=== PATIENT | female | born 1940 | race Caucasian/White ===

== ENCOUNTER 2018-08-07 07:05 | Day surgery (SDC) ==
--- NOTE | 2018-08-06 15:32 | EKG Report ---
Test Performed on : 08/06/2018 3:11:44 PM Test Reason : PAT Blood Pressure : / mmHG Vent. Rate : 075 BPM Atrial Rate : 075 BPM P-R Int : 178 ms QRS Dur : 092 ms QT Int : 402 ms P-R-T Axes : 050 003 038 degrees QTc Int : 448 ms Normal sinus rhythm. Incomplete right bundle branch block Borderline ECG When compared with ECG of 30-NOV-2017 15:30, T wave inversion no longer evident in Inferior leads Nonspecific T wave abnormality, improved in Anterolateral leads Confirmed by Gilles MELGOZA, Moody Samson ([id number]) on 08/06/2018 7:30:21 PM
[2018-08-06 15:51] LABS: HEMATOCRIT 32.6 % (37.0-47.0); MCH 28.5 PG (27-31); MCHC 30.7 g/dL (33-37); MCV 92.9 FL (81-99); MPV 10.3 FL (7.4-10.4); RBC 3.51 XMIL (4.2-5.4); RDW 14.4 % (11.5-14.5); WBC 15.52 X1000 (4.8-10.8)
[2018-08-06 16:01] LABS: INR 1.05; PROTIME 14.6 Seconds (11.0-16.0)
[2018-08-06 16:02] LABS: PTT 31.3 Seconds (22.3-41.8)
[2018-08-06 16:22] LABS: CALCIUM 9.2 mg/dL (8.8-10.2); CREATININE 1.2 mg/dL (0.5-0.9); POTASSIUM 4.8 mmol/L (3.5-5.1)
--- NOTE | 2018-08-06 19:35 | HISTORY AND PHYSICAL ---
HISTORY OF PRESENT ILLNESS: A 78-year-old female with history of recurrent urinary tract infections, who has developed gross hematuria. Of note, she is on anticoagulation secondary to her history of pulmonary embolus. She underwent CT scan on 07/22/2018, which revealed multiple bilateral renal stones, approximately 40 in each kidney, as well as ureteropelvic junction stenosis bilaterally. She underwent cystoscopy with retrograde pyelograms on 07/25/2018, which confirmed the UPJ obstruction bilaterally. She presents for definitive intervention of her left side with robotic pyeloplasty and pyelolithotomy. PAST MEDICAL HISTORY: Pulmonary embolus, recurrent UTIs, urinary incontinence, hypertension, hypothyroidism. PAST SURGICAL HISTORY: Bladder sling, bilateral hip replacement, hysterectomy, colon resection, shoulder surgery. HOME MEDICATIONS: Bystolic, Estrace, levothyroxine, Myrbetriq, nabumetone, Xarelto. ALLERGIES: No known drug allergies. PHYSICAL EXAMINATION: GENERAL: No acute distress. HEENT: Normocephalic, atraumatic. ABDOMEN: Nontender. Nondistended. CARDIOVASCULAR: Regular rhythm. GENITOURINARY: Bladder is nontender to palpation. ASSESSMENT: A 78-year-old female with bilateral ureteropelvic junction obstruction, as well as numerous bilateral renal stones. I have discussed with the patient robotic-assisted laparoscopic pyelolithotomy with removal of the left renal pelvis stones as well as pyeloplasty to correct her ureteropelvic junction and placement of left ureteral stent. We discussed the risks of the procedure, including, but not limited to, bleeding, infection, injury to the kidneys, injury to the ureters or adjacent structures, inability to remove all of the stones, recurrence of stenosis with need for additional interventions were explained. She voiced understanding and wants to proceed. PLAN: Left robotic-assisted laparoscopic pyeloplasty, pyelolithotomy. cc: Wai Monge MD
[2018-08-07] MEDS ORDERED: LR 1,000 ML ONE ×2 (07:48→09:49)
[2018-08-07] MEDS ORDERED: KEFZOL 1 GM/D5W 1 GM/50 ML IVPB ONE (07:48)
[2018-08-07] MEDS ORDERED: ROBINUL ONE ×2 (07:57→10:15)
[2018-08-07] MEDS ORDERED: NORCURON ONE (07:57)
[2018-08-07] MEDS ORDERED: QUELICIN (DOSE) ONE (07:57)
[2018-08-07] MEDS ORDERED: STERILE WATER INJ. ONE (07:57)
[2018-08-07] MEDS ORDERED: XYLOCAINE-MPF 2% ONE (07:57)
[2018-08-07] MEDS ORDERED: DIPRIVAN 1% ONE (07:58)
[2018-08-07] MEDS ORDERED: FENTANYL ONE (07:59)
[2018-08-07] MEDS ORDERED: MARCAINE 0.25% PF/EPI 1:200,000 ONE (09:49)
[2018-08-07] MEDS ORDERED: OFIRMEV 1000 MG/ISOTONIC SOLN 1,000 MG/100 ML BOTTLE ONE (10:15)
[2018-08-07] MEDS ORDERED: DECADRON ONE (10:15)
[2018-08-07] MEDS ORDERED: NEOSTIGMINE ONE (10:15)
[2018-08-07] MEDS ORDERED: ZOFRAN ONE (10:15)
[2018-08-07] MEDS ORDERED: LOPRESSOR ONE (11:55)
[2018-08-07] MEDS ORDERED: NS 1,000 ML ONE (12:46)
[2018-08-07] MEDS: DILAUDID ONE ×4 (12:58→13:15)
[2018-08-07] MEDS ORDERED: MORPHINE IV PRN (13:53)
[2018-08-07] MEDS ORDERED: NORCO-5 PO PRN (14:00)
[2018-08-07] MEDS ORDERED: PHENERGAN IV PRN (14:00)
[2018-08-07] MEDS ORDERED: NORCO-10 PO PRN (14:00)
[2018-08-07] MEDS ORDERED: NS 1,000 ML IV SCH (14:00)
[2018-08-07] MEDS ORDERED: PHENERGAN PO PRN (14:00)
[2018-08-07] MEDS ORDERED: LABETALOL IV PRN (14:00)
[2018-08-07] MEDS ORDERED: SODIUM CHLORIDE 0.9% INJ PRN (14:00)
[2018-08-07] MEDS ORDERED: OXY IR PO PRN ×2 (14:00)
[2018-08-07] MEDS ORDERED: PHENERGAN PR PRN (14:00)
[2018-08-07] MEDS: LEVAQUIN 500 MG/D5W 500 MG/100 ML IVPB IV SCH (15:32)
[2018-08-07] MEDS: NORCO-7.5 PO PRN (15:32)
[2018-08-07] MEDS: DILAUDID IV PRN ×3 (16:32→22:47)
[2018-08-07] MEDS ORDERED: OFIRMEV 1000 MG/ISOTONIC SOLN 1,000 MG/100 ML BOTTLE IV PRN (17:00)
[2018-08-07] MEDS ORDERED: PYRIDIUM PO PRN (18:03)
[2018-08-07] MEDS ORDERED: DITROPAN PO PRN (20:22)
[2018-08-07] MEDS: COLACE PO SCH (21:48)
[2018-08-07] MEDS: TYLENOL ARTHRITIS PO SCH (21:48)
[2018-08-07] MEDS: PERIDEX MT SCH (21:49)
[2018-08-07] MEDS: ZOFRAN IV PRN (23:03)
[2018-08-07 23:27] LABS: URINE SOURCE CLEAN CATCH
[2018-08-07 23:30] LABS: BILIRUBIN URINE NEGATIVE (NEGATIVE); BLOOD URINE MODERATE (NEGATIVE); COLOR ORANGE; GLUCOSE URINE >1000 mg/dL (NEGATIVE); KETONE URINE NEGATIVE (NEGATIVE); LEUKOCYTES URINE LARGE (NEGATIVE); NITRITE URINE NEGATIVE (NEGATIVE); PROTEIN URINE 50 mg/dL (NEGATIVE); SP GRAVITY URINE 1.011; TURBIDITY URINE TURBID (CLEAR); UROBILINOGEN URINE NORMAL (NORMAL)
[2018-08-07 23:37] LABS: UR EPITHELIAL CELLS <10 /HPF (<10); URINE BACTERIA NEGATIVE /HPF; URINE RBC TNTC /HPF (<10); URINE WBC TNTC /HPF (<10)
[2018-08-08 00:21] LABS: URINE CASTS NONE SEEN; URINE CRYSTALS NONE SEEN; URINE SMALL ROUND CELLS NONE SEEN; URINE YEAST PRESENT
[2018-08-08] MEDS: DILAUDID IV PRN ×2 (01:15→05:49)
[2018-08-08 05:47] LABS: CREATININE BODY FLUID 3.3 mg/dL
[2018-08-08 07:02] LABS: HEMOGLOBIN 9.8 g/dL (12.0-16.0); MCH 29.3 PG (27-31); MCHC 30.6 g/dL (33-37); MCV 95.8 FL (81-99); MPV 10.6 FL (7.4-10.4); RBC 3.34 XMIL (4.2-5.4); RDW 14.5 % (11.5-14.5); WBC 28.85 X1000 (4.8-10.8)
[2018-08-08 07:19] LABS: CALCIUM 8.6 mg/dL (8.8-10.2); CREATININE 1.6 mg/dL (0.5-0.9); POTASSIUM 4.7 mmol/L (3.5-5.1)
[2018-08-08] MEDS: ZOFRAN IV PRN (07:38)
[2018-08-08] MEDS: NORCO-7.5 PO PRN ×2 (07:44→15:17)
[2018-08-08] MEDS: PERIDEX MT SCH (08:55)
[2018-08-08] MEDS: TYLENOL ARTHRITIS PO SCH (08:56)
[2018-08-08] MEDS: COLACE PO SCH (08:57)
[2018-08-08] MEDS ORDERED: SYNTHROID PO SCH (09:00)
[2018-08-08] MEDS ORDERED: TRICOR PO SCH (09:00)
[2018-08-08] MEDS ORDERED: BYSTOLIC PO SCH (09:00)
[2018-08-08 11:54] VITALS: BP 112/49
[2018-08-08] MEDS: LEVAQUIN 500 MG/D5W 500 MG/100 ML IVPB IV SCH (13:19)
--- NOTE | 2018-09-26 09:48 | OPERATIVE NOTE ---
PROCEDURE DATE: 08/07/2018 SURGEON: Wai Monge MD PREOPERATIVE DIAGNOSES: History of open abdominal surgery on the left ureteropelvic junction obstruction, gross hematuria, numerous left kidney stones, and hydronephrosis. POSTOPERATIVE DIAGNOSES: History of open abdominal surgery on the left ureteropelvic junction obstruction, gross hematuria, numerous left kidney stones, and hydronephrosis. PROCEDURES: Extensive laparoscopic lysis of adhesions, left robotic assisted laparoscopic pyeloplasty, left pyelolithotomy with extraction of numerous renal stones, and placement of left ureteral stent. INDICATIONS: A 78-year-old female with history of recurrent UTIs who developed fairly severe gross hematuria. She underwent imaging with CT scan which revealed bilateral significant ureteropelvic junction obstruction with severe hydronephrosis as well as numerous kidney stones, over 50 stones in each renal pelvis. She has a history of hysterectomy as well as colon resection with large abdominal scar. She underwent retrograde pyelogram which confirmed significant ureteropelvic junction obstruction and numerous stones on both sides. She wants to proceed with definitive surgical intervention, and we agreed to start with the left side as it appears to have less burden. FINDINGS: She had multiple adhesions of small bowel and mesentery to the anterior abdominal wall from the previous surgery. Please note that it took me approximately 30 minutes to take those down meticulously and increased my operative time by 30%. There were numerous renal stones that were extracted after the renal pelvis was opened. Tension-free and watertight anastomosis at the conclusion of pyeloplasty. I performed a reduction pyeloplasty excising a segment of renal pelvis. DESCRIPTION OF PROCEDURE: After obtaining informed consent, patient brought to the operating room. Perioperative antibiotics and general endotracheal anesthesia were administered. She was placed in modified flank position with the left side up. A 16-Mauritanian Alberto catheter was introduced. Her bladder was drained. She was prepped and draped in sterile fashion. Given her large ventral abdominal scar, we began by making a small stab incision in her left upper quadrant and introduced the Veress needle. At first we could not confirm positive drop test, and hence, I had to find another place in the left upper quadrant, and then reintroduced Veress needle connected to saline-filled syringe. Eventually, I was able to confirm positive drop test followed by aspiration of fluid in the syringe without evidence of GI contents or blood. We then insufflated her pneumoperitoneum pressure to 15 mmHg. Given again her midline scar, we elected to start by placing one of the 8 mm trocars and looking with a 5 mm laparoscopic camera. After her abdominal cavity was insufflated, I demarcated the trocar sites in a standard partial nephrectomy fashion. One of the 8 mm trocar sites was anesthetized with Marcaine with epinephrine. Bovie electrocautery was used to incise skin followed by introduction of the trocar. This allowed us to introduce the 5 mm laparoscopic camera and abdominal cavity was examined. She had extensive adhesions of mesentery and small bowel to the anterior abdominal wall just at the midline at the site of her ventral scar. I then placed another 8 mm trocar under direct vision, and subsequent to that I used sharp dissection with gold scissors to take the adhesions down. We used cautery occasionally making sure we were away from the bowel as we cut across the adhesions. Again, I spent approximately 30 minutes taking the adhesions down and that increased my operative time by 30%. Once the adhesions were taken down, I was able to place the rest of the trocars under direct vision. She was placed in a more exaggerated flank position, and the robot was undocked. We began by incising the white line of Toldt and reflecting the descending colon. The splenic colic flexure was released. The mesentery of the kidney came into the view. She had a decent amount of perinephric fat that was fairly sticky. I was eventually able to identify the projected lower pole of the kidney and dissect onto the psoas muscle. The kidney was lifted with the help of the fourth arm. Eventually, the ureter was identified. We then dissected alongside the ureter toward the hilum in the process of identifying and sparing the gonadal vein. Eventually, the ureteropelvic junction came into the view. Her pelvis was very very large and redundant. There was no evidence of a crossing vessel. I then spent a considerable amount of time freeing up the fat off of the renal pelvis in order for us to have excellent visualization as I saw that we will likely have to do reduction pyeloplasty. Eventually, I also freed up and mobilized the ureter for 5 to 6 cm distally in order to give us adequate length for a tension-free anastomosis. We were careful to preserve periurethral blood supply. Eventually, once we were satisfied with exposure, her renal pelvis was incised. I expected she had numerous renal stones. The majority of them were 2 to 3 mm but again there were between 50 and 100 stones. I used the fourth arm as well as the bipolar grasper to extract the stones, and place them into an EndoCatch bag. When we extracted all the visible stones, copious irrigation of the renal pelvis was performed. I was able to inspect several major calices, but it was suboptimal to examine of every minor calyx. We once again irrigated the renal pelvis copiously trying to bring out any other remaining stones. Following that, I used gold scissors to excise a several cm piece of the renal pelvis in order to reduce it. We also excised the ureteropelvic junction which was sent off to pathology. Pott's scissors were used to incise the ureter. Following that, I used 3-0 Vicryl suture in a running fashion to reapproximate the edges of the renal pelvis. It appeared to come back together nicely without tension and greatly reduced in size. We then used interrupted 4-0 Vicryl sutures to perform anastomosis between the renal pelvis and the ureter. This was done x8. After placing 5 sutures on the back wall of the ureter, Sensor wire was introduced into the ureter toward the bladder followed by insertion of 6-Mauritanian, 24 cm stent over the wire. The proximal coil of the stent was positioned in the renal pelvis under direct visualization. I then continued closing the anastomosis in an interrupted fashion with 4-0 Vicryl sutures. Again, in total, we used 8 sutures. At the conclusion of the case, the anastomosis was definitely tension-free and appeared to be watertight. I decreased pneumoperitoneal pressure to 3 mmHg. There was no evidence of bleeding. We then inspected the entire operative field. There was no evidence of bowel injury. We placed a Philippe drain via the fourth arm trocar, and secured to the skin with 2-0 nylon suture. We decreased the amount of pressure one more time and confirmed that there was no bleeding, and then the robot was undocked. Her 12 mm camera trocar and technical support assistant trocar fascia was closed with 0 Vicryl suture. Wounds were irrigated. A 4-0 Monocryl suture was used for subcuticular closure followed by application of Covidien adhesive agent. She was extubated and taken to PACU for further recovery. ESTIMATED BLOOD LOSS: 50 mL. SPECIMENS: 1. Multiple renal stones. 2. Ureteropelvic junction of renal pelvis. DRAINS: 1. Philippe drain. 2. 6-Mauritanian-24 cm ureteral stent. DISPOSITION: To PACU and subsequently floor for observation. cc: Wai Monge MD
== END 2018-08-08 15:35 | disposition home or self-care (01) ==
LOC: 4N 07:05 → OR 07:05
PROVIDERS: ATTEND Urology

== ENCOUNTER 2018-08-14 08:24 | Inpatient (IN) ==
--- NOTE | 2018-08-14 08:54 | Diag Imaging Result Doc PS360 ---
CHEST-1 VIEW - 08/14/2018 INDICATION: sepsis protocol COMPARISON: 11/30/2017 FINDINGS: The lungs are normally expanded and clear. Heart size and mediastinal contours are normal. No pneumothorax or pleural effusion. IMPRESSION: Negative exam. Electronically signed by Abiel Jimenez 08/14/2018 8:52 AM
[2018-08-14] MEDS ORDERED: MORPHINE IV ONE (08:56)
[2018-08-14] MEDS ORDERED: ZOFRAN IV ONE (08:56)
--- NOTE | 2018-08-14 09:05 | PROVIDER DOCUMENTATION ---
HPI-General Adult - General Chief Complaint: SEPSIS ALERT - D Stated Complaint: POST OP COMPLAINT Time Seen by Provider: 08/14/18 08:44 Source: patient, family Allergies/Adverse Reactions: Patient Allergies Allergy/AdvReac Type Severity Reaction Status Date / Time No Known Allergies Allergy Verified 08/06/18 14:59 Home Medications: Home Medication List Medication Instructions Recorded Confirmed Last Taken Type Fenofibrate [Tricor] 145 mg PO DAILY 11/12/17 08/14/18 08/13/18 08:00 History Nebivolol [Bystolic] 5 mg PO DAILY 11/12/17 08/14/18 08/13/18 08:00 History Levothyroxine [Synthroid] 125 microgm PO DAILY 11/15/17 08/14/18 08/06/18 09:00 History 125 Acetaminophen E.r. [Tylenol 2 tab PO BID 11/30/17 08/14/18 08/13/18 20:00 History Arthritis] Phenazopyridine HCl [Pyridium] 200 mg PO TID PRN PRN #10 tab 07/25/18 08/14/18 Unknown Rx Aspirin [Adult Low Dose Aspirin EC] 81 mg PO DAILY 08/07/18 08/14/18 Unknown History Fluconazole 100 mg PO DAILY 08/07/18 08/14/18 08/13/18 20:00 History Hydrocodone/APAP 7.5 mg/325 mg 1 ea PO TID PRN #20 tab 08/08/18 08/14/18 08/14/18 03:00 Rx [[place]-7.5] [place]/Na Phos/Meth Blue/Hyos 1 ea PO TID PRN #30 tab 08/08/18 08/14/18 Unknown Rx [Urogesic-Blue] Promethazine [Phenergan] 12.5 mg RC TID PRN #15 supp 08/08/18 08/14/18 Unknown Rx Rivaroxaban [Xarelto] 20 mg PO DAILY 08/14/18 08/14/18 08/13/18 08:00 History - History of Present Illness -Gen Adult Nature of Presenting Problems: Patient complains of back and chest pain since last night. Patine is 1 week post ureteral stent placement for ureterolithiasis. Seh denies fever or vomiting. Reports that the pain in the back developed last night but the chest pain developed this morning. She states that she's had both symptoms previously. Pain Radiation: reports: no radiation Quality of Pain: reports: sharp Severity: reports: moderate Timing: reports: still present Context/Activities at Onset: reports: none Modifying Factors: improves with: nothing Associated Symptoms: reports: denies symptoms Similar Symptoms Previously?: Yes Recently seen or treated by another doctor?: Yes Review of Systems - Adult - REVIEW OF SYSTEMS - ADULT Constitutional: reports: no symptoms reported Eyes: reports: no symptoms reported Ears, Nose, Mouth & Throat: reports: no symptoms reported Cardiovascular: reports: no symptoms reported Respiratory: reports: no symptoms reported Gastrointestinal: reports: no symptoms reported Genitourinary: reports: see HPI Musculoskeletal: reports: no symptoms reported Integumentary: reports: no symptoms reported Neurological: reports: no symptoms reported Psychiatric: reports: no symptoms reported Endocrine: reports: no symptoms reported Hematologic/Lymphatic: reports: no symptoms reported Allergic/Immunologic: reports: no symptoms reported All Other Systems: Reviewed and Negative Past History - Adult - PAST MEDICAL HISTORY-ADULT Review of Records: reports: Old Records Reviewed Major Childhood Illnesses: reports: denies history Cardiovascular: reports: blood clots, HTN Respiratory: reports: denies history Gastrointestinal: reports: denies history Obstetrical/Gynecological: reports: denies history Genitourinary: reports: denies history Musculoskeletal: reports: denies history Neurological: reports: denies history Endocrine/Immune: reports: thyroid disorder Other Conditions: reports: denies history - PRIOR SURGERIES/PROCEDURES Surgical/Procedure History: reports: hysterectomy, bowel surgery (colon resection), orthopedic (extremity) - IMMUNIZATION STATUS Childhood Immunizations: See Nurse Assessment Flu Vaccine: See Nurse Assessment - FAMILY HISTORY Family History: reviewed, not pertinent Physical Exam-General - PHYSICAL EXAM-ADULT Initial Vital Signs Reviewed: Yes - CONSTITUTIONAL General Appearance: mild distress (due to pain) - EYES Eyes: PERRL/EOMI, pink conjunctivae - HEAD, EARS, NOSE, MOUTH & THROAT HENMT: normocephalic/atraumatic, moist mucous membranes, normal ENT inspection - NECK Neck: non-tender, full range of motion - RESPIRATORY Respiratory: chest non-tender, lungs clear, normal breath sounds - CARDIOVASCULAR Cardiovascular: normal peripheral pulses, regular rate, rhythm - GASTROINTESTINAL (ABDOMEN) Abdominal Exam: non tender, soft, no organomegaly - MUSCULOSKELETAL Back Exam: normal inspection, no CVA tenderness Extremity: normal range of motion, non-tender - SKIN Integumentary: normal color, normal turgor, warm/dry - NEUROLOGIC Neurologic: 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 II-XII nml as tested, grossly normal - PSYCHIATRIC Psych/Mental Status: normal mood/affect, normal thought content, normal thought process, oriented x 3 Progress - PLAN OF CARE/RESULTS Progress/Plan/Lab Results: Vital Signs - 8 hr 08/14/18 08:28 Temperature 98.6 F Pulse Rate 99 H Respiratory Rate 22 Blood Pressure 149/77 O2 Sat by Pulse Oximetry 95 Orders Category Date Time Status Cardiac Monitoring DIRECTED Care 08/14/18 08:36 Active IV Insertion ORDERED Care 08/14/18 08:36 Active Notify MD of + Sepsis Screen NOW Care 08/14/18 08:36 Active Notify Physician As Ordered Care 08/14/18 08:36 Active Nursing- Obtain EKG once Care 08/14/18 08:56 Active CHEST-1 VIEW [RAD] Stat Exams 08/14/18 08:[address] RENAL STONE SEARCH [CT] Stat Exams 08/14/18 08:55 Ordered BLOOD CULTURE [BLDCUL] Stat Lab 08/14/18 08:36 Uncollected CBC WITH DIFF [HEME] Stat Lab 08/14/18 08:36 Uncollected CK PROFILE [SP CHEM] Stat Lab 08/14/18 08:36 Uncollected COMPREHENSIVE METABOLIC PANEL [CHEM] Stat Lab 08/14/18 08:36 Uncollected LACTATE, PLASMA [CHEM] Q3H Lab 08/14/18 08:45 Uncollected LACTATE, PLASMA [CHEM] Q3H Lab 08/14/18 11:45 Uncollected LACTATE, PLASMA [CHEM] Q3H Lab 08/14/18 14:45 Uncollected PROTIME WITH INR [COAG] Stat Lab 08/14/18 08:36 Uncollected PTT [COAG] Stat Lab 08/14/18 08:36 Uncollected TROPONIN T Stat Lab 08/14/18 08:36 Uncollected URINALYSIS W/POSS RFLX CULT [URINALYSIS] Stat Lab 08/14/18 08:36 Uncollected Morphine Med 08/14/18 08:56 Discontinued 4 mg IV NOW ONE Ondansetron [Zofran] Med 08/14/18 08:56 Discontinued 4 mg IV NOW ONE Oxygen Device Stat Oth 08/14/18 08:36 Active Result Diagrams: 08/14/18 09:45 08/14/18 09:45 - REASSESSMENT Reassessment #1 Status: improving (mildly) - EKG 1 Time of EKG reading by physician:: 09:10 EKG Read and Signed by:: Gonzalez Cespedes Rate: 93 Rhythm: sinus [place]: normal QRS: normal [place] Interval: normal - CONSULTS/PCP/HOSPITALIST Notification #1 *Consult/PCP/Hospitalist*: Dr. Singh Consult Disposition: Admit (to ) #2 Consult: Consult Disposition: Admit Departure - Departure Date of Disposition Decision: 08/14/18 Time of Disposition Decision: 13:48 DIAGNOSIS: Back pain, Urinoma, Leukocytosis Disposition: ADMITTED INPATIENT 09 Certified Medical Emergency: Emergent Condition: Serious Referrals and Follow-Ups: Baljinder Patel MD [Primary Care Provider] - - Critical Care Note This patient required my direct & personal management of CC.: No Attestation - Physician/ REJI Attestation Patient care was provided by Advanced Practice Provider:: No The physician spent face to face time with patient:: Yes Advanced Practice Provider documentation review:: Supervising physician onsite and consulted in the evaluation and care of this patient. The physician did have a face to face encounter with the patient.
--- NOTE | 2018-08-14 09:35 | Diag Imaging Result Doc PS360 ---
EXAM: CT RENAL STONE SEARCH INDICATION: renal stent, pain TECHNIQUE: This exam was performed using automated exposure control, adjustment of mA or kV according to patient size, and/or use of iterative reconstruction technique. COMPARISON: 07/22/2018 FINDINGS: During the interval, there has been placement of a left ureteral stent. The left ureteral stent is in the expected position. Bilateral nephrolithiasis is again noted with numerous small stones in the renal pelvises bilaterally. There is gas within both renal pelvises and in the urinary bladder, which is probably due to recent instrumentation if the stent has been placed recently or there has been a recent Alberto catheter. Please correlate clinically. There has also been development of a large fluid collection that abuts the left ureter and runs along its course to the mid abdomen. It measures 8.6 x 6.7 cm axially and 12.8 cm craniocaudally. There are a few small droplets of gas within this fluid collection. The density is that of simple fluid. It is suspicious for urinoma. There is a smaller amount of nonloculated fluid tracking along the left ureter more distally. Much of the urinary bladder is obscured by extensive beam hardening artifact related to bilateral hip arthroplasty. This distention of the left renal pelvis appears to improve slightly since placement of the stent. The distended right renal pelvis is stable. No right ureteral stones are appreciated. The liver, spleen, pancreas, and adrenal glands are stable and essentially unremarkable. The GI tract is essentially unchanged. IMPRESSION: 1.Interval placement of left ureteral stent with development of a large periureteral fluid collection on the left that is suspicious for urinoma. 2.Multiple intrarenal stones bilaterally, mainly in the renal pelvises similar to the previous study. The distention of the left renal pelvis has improved slightly since stent placement. Distended right renal pelvis is stable. 3.Gas in both renal pelvises, the urinary bladder, as well as the large left periureteral fluid collection that is probably due to recent instrumentation. Please correlate clinically. 4.Otherwise, the CT is essentially stable. Electronically signed by Jagdeep Patton 08/14/2018 9:33 AM
[2018-08-14 10:38] LABS: BASO# 0.05 X1000 (0.0-0.2); BASO% 0.2 % (0.0-0.8); EOS# 0.06 X1000 (0.0-0.7); EOS% 0.2 % (0.0-10.0); HEMATOCRIT 33.4 % (37.0-47.0); HEMOGLOBIN 10.4 g/dL (12.0-16.0); IMM GRAN# 0.39 X1000 (0.0-0.04); IMM GRAN% 1.6 % (0.0-0.5); LYMPH# 1.59 X1000 (1.2-3.4); LYMPH% 6.6 % (20.5-51.1); MCH 28.7 PG (27-31); MCHC 31.1 g/dL (33-37); MONO# 1.62 X1000 (0.11-0.59); MONO% 6.7 % (1.7-9.3); MPV 10.7 FL (7.4-10.4); NEUT% 84.7 % (42.2-75.2); PLT 571 X1000 (130-400); RBC 3.63 XMIL (4.2-5.4); RDW 14.8 % (11.5-14.5); WBC 24.01 X1000 (4.8-10.8)
[2018-08-14 10:58] LABS: BANDS 10 % (0-1); EOS 2 % (1-10); INR 1.27; LYMPHS 3 % (21-51); MONO 11 % (1-9); PROTIME 16.9 Seconds (11.0-16.0); SEGS 73 % (42-75)
[2018-08-14] MEDS ORDERED: ZOSYN 3.375 GM in NS 50 ML IV ONE (10:58)
[2018-08-14 11:00] LABS: PTT 36.7 Seconds (22.3-41.8)
[2018-08-14 11:01] LABS: ALB/GLOB RATIO 1.1; ALBUMIN 3.3 g/dL (3.5-5.0); CALCIUM 8.7 mg/dL (8.8-10.2); POTASSIUM 4.3 mmol/L (3.5-5.1); TOTAL BILIRUBIN 0.41 mg/dL (0.20-1.00); TOTAL PROTEIN 6.4 g/dL (6.3-8.3)
[2018-08-14 11:22] LABS: URINE SOURCE CLEAN CATCH
--- NOTE | 2018-08-14 11:22 | EKG Report ---
Test Performed on : 08/14/2018 09:03:23 AM Test Reason : ED. NO EKG ORDER FOR MUSE Blood Pressure : / mmHG Vent. Rate : 093 BPM Atrial Rate : 093 BPM P-R Int : 154 ms QRS Dur : 090 ms QT Int : 380 ms P-R-T Axes : 044 -05 055 degrees QTc Int : 472 ms Normal sinus rhythm. Normal ECG When compared with ECG of 06-AUG-2018 15:11, No significant change was found Unconfirmed Result
[2018-08-14 11:32] LABS: BILIRUBIN URINE NEGATIVE (NEGATIVE); BLOOD URINE LARGE (NEGATIVE); COLOR ORANGE; GLUCOSE URINE >1000 mg/dL (NEGATIVE); KETONE URINE TRACE mg/dL (NEGATIVE); LEUKOCYTES URINE LARGE (NEGATIVE); NITRITE URINE NEGATIVE (NEGATIVE); PH URINE 5.5; PROTEIN URINE 50 mg/dL (NEGATIVE); SP GRAVITY URINE 1.013; TURBIDITY URINE TURBID (CLEAR); UROBILINOGEN URINE NORMAL (NORMAL)
[2018-08-14 12:02] LABS: UR EPITHELIAL CELLS <10 /HPF (<10); URINE BACTERIA NEGATIVE /HPF; URINE CASTS NONE SEEN; URINE RBC TNTC /HPF (<10); URINE WBC TNTC /HPF (<10); URINE YEAST PRESENT
[2018-08-14] MEDS ORDERED: ZOFRAN IV PRN (14:24)
[2018-08-14] MEDS ORDERED: TYLENOL PO PRN (14:24)
[2018-08-14] MEDS ORDERED: LEVAQUIN 500 MG/D5W 500 MG/100 ML IVPB IV SCH (15:00)
[2018-08-14] MEDS: NORCO-5 PO PRN ×2 (15:41→22:13)
[2018-08-14] MEDS: NS 1,000 ML IV SCH (15:42)
--- NOTE | 2018-08-14 16:49 | HISTORY AND PHYSICAL ---
PRIMARY CARE PROVIDER: Dr. Baljinder Patel. UROLOGIST: Dr. Monge. CHIEF COMPLAINT: Left lower quadrant pain, mild nausea, urinary frequency. HISTORY OF PRESENT ILLNESS: Ms. Richard is a 78-year-old female who carries a past medical history of PE, recurrent UTIs, urinary incontinence, hypertension, hypothyroidism, who is currently being treated with by Dr. Monge for multiple bilateral renal stones, approximately 40 in each kidney. She did undergo a cystoscopy with retrograde pyelogram on 07/25/2018 which confirmed a UPJ obstruction bilaterally and then underwent intervention of her left side with robotic pyeloplasty and pyelolithotomy on 07/31/2018, with Dr. Monge with placement of a left urethral stent. She states all this time she has not really felt like herself, has not felt well. However, she was just starting to get her appetite back yesterday and yesterday afternoon she began having left lower quadrant pain that had been ongoing for several days, but then yesterday became unbearable, sharp and dull in nature. She had some mild nausea, urinary frequency, but denied any dysuria. They had spoke with Dr. Monge on Sunday. He did give them a prescription for an antibiotic, which did not get filled until Sunday and the pain became so bad Sunday morning she was brought to the ED by her . She denies any fever, chills, chest pain, shortness of breath, vomiting, or diarrhea, dizziness, or syncope. Workup in the ED revealed a white count of 24, with a dirty urine. Clinically, she does appear to be dehydrated. A renal CT was suspicious for urinoma, multiple intrarenal stones bilaterally mainly in the renal pelvis similar to her previous study. Her left renal pelvis was slightly improved since her stent placement. Distended right renal pelvis with stable. There was a large left periurethral fluid collection due to recent instrumentation. The CT was noted to be essentially stable. ED physician spoke with Dr. Monge who felt the patient would need to come in and receive IV antibiotics. She did not rule in for sepsis. Given her last urine cultures they grew out Citrobacter freundii, most susceptible to levofloxacin. So we will go ahead and initiate her on IV Levaquin. She was given a dose of Zosyn in the ED. We will continue with IV hydration and await Dr. Monge's recommendation. PAST MEDICAL HISTORY: 1. Pulmonary embolism. 2. Recurrent urinary tract infections. 3. Urinary incontinence. 4. Hypertension. 5. Hypothyroidism. 6. Bilateral renal stones. PAST SURGICAL HISTORY: 1. Recent retrograde pyelogram. 2. Left robotic assisted laparoscopic pyeloplasty and pyelolithotomy. 3. Bladder sling. 4. Bilateral hip replacement. 5. Hysterectomy. 6. Colon resection. 7. Shoulder surgery. HOME MEDICATIONS: Have not been verified. Previously on Bystolic, Estrace, levothyroxine, Myrbetriq, Nabumetone, and Xarelto. ALLERGIES: No known drug allergies. PHYSICAL EXAMINATION: VITAL SIGNS: Temperature is 99.7 degrees, heart rate 93, respirations 25, blood pressure 160/68, O2 is 94% on room air. GENERAL: Ms. Richard is an ill-appearing, 78-year-old female who is lying on the bed in no acute distress. HEENT: Atraumatic, normocephalic. PERRL. Mucous membranes are extremely dry. CARDIOVASCULAR: S1, S2 appreciated. No murmurs, gallops, rubs noted. RESPIRATORY: Lung sounds clear bilaterally. GASTROINTESTINAL: Abdomen was soft. Some tenderness to the left lower quadrant. Mild tenderness to the left lower quadrant. Positive bowel sounds. EXTREMITIES: Did not note any edema. NEUROLOGIC: No focal deficits noted. DIAGNOSTIC DATA: Chest x-ray was a negative exam. Renal CT is essentially stable. EKG normal sinus rhythm. LABORATORY DATA: White count 24, hemoglobin and hematocrit 10 and 34, platelet count of 571,000. Sodium 139, potassium 4.3, BUN 15, creatinine 1.0 blood glucose is 274. Two sets of lactate have been negative. Urine too numerous to count, RBCs too numerous to count WBCs, negative for bacteria, negative for nitrates, large blood. ASSESSMENT AND PLAN: 1. Leukocytosis in the setting of urinary tract infection and some dehydration. We will treat her urinary tract infection as well as continue with IV hydration. 2. Urinary tract infection. We will continue with IV Levaquin. Await urine culture. 3. Recent cystoscopy with retrograde pyelogram on 07/25/2018 for bilateral renal stones as well as a left robotic assisted laparoscopic pyeloplasty and pyelolithotomy with stent placement performed by Dr. Monge on 07/31. Renal CT showed that there was good stent placement. 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 4. Pulmonary embolus. The patient had gross hematuria secondary to being on anticoagulation with Xarelto. 5. Recurrent urinary tract infection. 6. Hypertension. 7. Hypothyroidism. 8. Further recommendation to follow physician evaluation, laboratory and diagnostic data. Dictated by JASON Sinha for Leann Casper MD cc: MD Wai Medel MD David Francis, MD
--- NOTE | 2018-08-15 01:33 | CONSULTATION ---
DATE OF CONSULTATION: 08/14/2018 CONSULTING SERVICE: Hospitalist. REASON FOR CONSULTATION: Urologic management secondary to recent urologic surgery. HISTORY OF PRESENT ILLNESS: Ms Richard is a pleasant 78-year-old female who is well known to me as she has bilateral ureteropelvic junction obstruction, numerous bilateral renal stones (close to 100 stones in each kidney), and gross hematuria as well as recurrent UTIs. She underwent a robotic-assisted laparoscopic left pyeloplasty with left ureteral stent removal on 08/07/2018. She was discharged on postop day 1 with the ureteral stent in place and without the drain. She did well for several days, although she complained of decreased appetite. She contacted us with intermittent suprapubic discomfort and had urine culture sent off on 08/08/2018, which revealed the yeast, for which she was being treated. She presented to the emergency room on 08/14/2018 with left lower quadrant pain radiating to her back as well as nausea. She reports the pain was sharp, [id number], and radiated to the back, activity made it worse, narcotic pain medications made it better. She denies associated fevers, chills, or gross hematuria. She reported associated nausea, decreased appetite, although it returned just yesterday. In the emergency room, she was found to have leukocytosis with a white cell count of 24,000. Her urinalysis had white cells and red cells, but was negative for bacteria. Her CT scan on 08/14/2018 revealed a ureteral stent in good position, a number of small residual stones in the left pelvis, although significantly decreased then prior to procedure, and a sizable fluid collection abutting the proximal left ureter consistent with urinoma. Ms Richard reports that after having received IV pain medications, her pain has completely subsided. She also reports her urgency and frequency, which has been present since her ureteral stent has been placed. PAST MEDICAL HISTORY: Pulmonary emboli for which she has been on anticoagulation, urolithiasis, hypertension, hypothyroidism, recurrent UTIs. PAST SURGICAL HISTORY: Shoulder arthroplasty, bilateral hip replacement, bladder sling, hysterectomy, partial colectomy, left robotic-assisted laparoscopic pyeloplasty and pyelolithotomy with left ureteral stent placement. ALLERGIES: No known drug allergies. HOME MEDICATIONS: Bystolic, levothyroxine, Myrbetriq, nabumetone, Estrace, and Xarelto. REVIEW OF SYSTEMS: Review of 12 systems negative, except as per the HPI. SOCIAL HISTORY: She denies tobacco, alcohol, or illicit drug use. She resides with her . Has very attentive family. FAMILY HISTORY: Negative for malignancies. PHYSICAL EXAMINATION: Vital signs: Temperature 97.9 degrees, pulse 91, blood pressure 127/59. General: No acute distress. HEENT: Normocephalic, atraumatic. Cardiovascular: Regular rhythm and rate. Pulmonary: Bilateral breath sounds. Abdomen: Protuberant, mildly tender to palpation but no peritoneal signs. No involuntary guarding. Her incisions are clean, dry, and intact in all port sites. Genitourinary: Bladder is nontender to palpation. Dermatologic: No skin rashes. Lymphatic: No groin lymphadenopathy. Neurologic: Alert and oriented x3. Psychiatric: Appropriate mood and affect. PERTINENT LABS: As per HPI. Her white cell count is 24,000. INR is 1.27. Creatinine is 1.0. PERTINENT IMAGES: CT abdomen and pelvis renal protocol as per HPI. ASSESSMENT/PLAN: A 78-year-old female who recently underwent left robotic pyeloplasty, pyelolithotomy, left ureteral stent placement, who presented with severe left flank pain, which has now resolved after narcotic pain medications as well as leukocytosis. She was initiated on Levaquin. Her urine is consistent with having a ureteral stent. I have discussed with the patient and her , who was present at bedside, that leukocytosis could still be reaction to surgery or a sign of infection. We discussed then the fluid collection abutting her urinary renal pelvis is likely urinoma. Does not appear to be an abscess. We discussed that due to significant size, she may benefit from having a drain by our Radiology colleagues. I have also discussed that having a ureteral stent will create frequency and urgency and is to be expected for the next 3 weeks. The patient's questions were answered. She currently feels more comfortable. PLAN: 1. I agree with antibiotics for now given her leukocytosis. 2. I will reassess the patient tomorrow. If she has any more pain episodes overnight, I explained to her and her that it could be related to the urinoma and she may benefit from having it drained by our Radiology colleagues. Otherwise, if she is feeling great, has had not had any more of the pain episodes, it would be reasonable to send her home without having urinoma drained in hopes that it will reabsorb with time, as she does have ureteral stent draining. 3. We will reassess in the morning. Thank you for assisting in Ms Richard's care. cc: Wai Monge MD
[2018-08-15] MEDS: NS 1,000 ML IV SCH ×3 (06:41→17:50)
[2018-08-15 08:01] LABS: BASO# 0.03 X1000 (0.0-0.2); BASO% 0.1 % (0.0-0.8); EOS% 0.4 % (0.0-10.0); HEMATOCRIT 27.4 % (37.0-47.0); HEMOGLOBIN 8.3 g/dL (12.0-16.0); IMM GRAN# 0.28 X1000 (0.0-0.04); IMM GRAN% 1.2 % (0.0-0.5); LYMPH% 6.9 % (20.5-51.1); MCH 28.3 PG (27-31); MCHC 30.3 g/dL (33-37); MCV 93.5 FL (81-99); MONO# 1.11 X1000 (0.11-0.59); MONO% 4.8 % (1.7-9.3); MPV 10.3 FL (7.4-10.4); NEUT# 19.91 X1000 (1.4-6.5); NEUT% 86.6 % (42.2-75.2); PLT 566 X1000 (130-400); RBC 2.93 XMIL (4.2-5.4); RDW 14.7 % (11.5-14.5); WBC 23.03 X1000 (4.8-10.8)
[2018-08-15 08:20] LABS: LYMPHS 2 % (21-51); MONO 4 % (1-9); SEGS 94 % (42-75)
[2018-08-15 08:38] LABS: AGAP 13; ALB/GLOB RATIO 0.7; ALBUMIN 2.5 g/dL (3.5-5.0); ALKALINE PHOSPHATASE 89 U/L (32-104); BUN 17 mg/dL (8-22); CALCIUM 8.1 mg/dL (8.8-10.2); CHLORIDE 103 mmol/L (98-107); COSMO 286; CREATININE 1.3 mg/dL (0.5-0.9); ESTIMATED GFR 40; GLUCOSE 219 mg/dL (70-104); POTASSIUM 3.8 mmol/L (3.5-5.1); SODIUM 139 mmol/L (136-145); TCO2 23 mmol/L (25-35); TOTAL PROTEIN 5.9 g/dL (6.3-8.3)
[2018-08-15 08:39] LABS: GOT 10 U/L (10-30); GPT < 5 U/L (10-36)
--- NOTE | 2018-08-15 11:58 | PROGRESS NOTE ---
DATE: 08/15/2018 SUBJECTIVE: Ms. Richard reports she has had a decent night overnight. She continues to have decreased appetite. She has had some nausea. She denies any recurrence of pain that she had yesterday, which brought her to the emergency room. OBJECTIVE: Vital Signs: T 100.3 degrees, P 86, BP 129/53. General: No acute distress. Pleasant female. Abdomen: Soft, nontender and nondistended. : Bladder is nontender to palpation. PERTINENT LABS: White cell count is 23,000, hematocrit is 27, creatinine is 1.3. ASSESSMENT: A 78-year-old female, who is status post recent left pyeloplasty, pyelolithotomy and ureteral stent placement, who was admitted to the hospital with pain and leukocytosis. Her pain has resolved. She still has elevated white cell count. I have discussed with the patient that her urinoma could contribute to decreased appetite and nausea. I do not believe again that it is an infection as that would be fairly early. Nevertheless, I have discussed with the patient and her , who was at bedside, as well as her daughter over the telephone, that since she is not feeling well overall and has persistent white cell count despite hydration overnight, it will be prudent for her to undergo percutaneous drainage of the urinoma. We discussed pros and cons. I discussed this case with Dr. Raúl Coburn with Radiology, who graciously agreed to assist us. PLAN: 1. The patient will undergo percutaneous CT-guided drainage of the urinoma. Per Dr. Coburn, I have placed her on clear liquid diet prior to procedure. Post procedure, she can resume regular diet. 2. Despite hydration, her creatinine saw a bump to 1.3. It is likely from the absorption of the urinoma and not truly related to an acute kidney injury. 3. Agree with antibiotics for now, although suspect her urine culture came back negative for bacteria. 4. Will follow. cc: Wai Monge MD
--- NOTE | 2018-08-15 12:39 | INFECTIOUS DISEASE CONSULT REP ---
DATE: 08/15/2018 ADDENDUM: It should be noted that the patient has recurrent urinary tract infection. Thus far this year, she has had 5 urinary tract infections. She grew either yeast or Citrobacter for the urinary tract infection she has had this year. I am going to go ahead and get immunoglobulin levels just to see if she has a low IgG level that might be predisposing her to recurrent urinary tract infections. I think it is more likely, however, that the patient's urinary tract infections are due to the fact that she has renal calculi which are impossible to sterilize and thus would be a source of giving the patient recurrent urinary tract infections. Hopefully, the procedures that Dr. Monge did will remove the stones from the patient's kidneys. This procedure hopefully will prevent the patient from having recurrent urinary tract infections. cc: Konrad Luis MD
--- NOTE | 2018-08-15 12:42 | INFECTIOUS DISEASE CONSULT REP ---
DATE: 08/15/2018 CONCLUSION: The patient has been admitted to the hospital with what appears to be a urinary tract infection. She has had multiple urinary tract infections and recently she had surgery for removal of renal calculi. It may well be that this current urinary tract infection is due to a fungus in view of the fact that the urinalysis showed white cells and yeast, but no bacteria. RECOMMENDATIONS: The patient already is on Levaquin for possible bacterial urinary tract infection. I have gone ahead and started the patient on micafungin for a possible fungal urinary tract infection. I think I am going to stop the patient's Levaquin and put her on a broader spectrum antibiotic for urinary tract infection, such as cefepime. DISCUSSION: The patient tells me approximately 9 days ago, she had robotic operation for removal of renal stones. Approximately 2 days ago, she started having lower abdominal pain and diffuse abdominal pain. She has not had fever or chills. She has not had dysuria. Laboratory studies thus [place] [address], hemoglobin 8.3, and platelet count 566,000. Creatinine is 1.3. GFR is 40. Liver function studies are normal. Urinalysis showed white cells and yeast, but no bacteria. Blood and urine cultures are pending. [employer] HISTORY: She is a 3, para 3, AB 0. She has had a hysterectomy. REVIEW OF SYSTEMS: Eyes and ears: She does not have any problem hearing or seeing. Neck: No stiffness. Respiratory: No cough or shortness of breath. Gastrointestinal: No nausea, vomiting, or diarrhea. Genitourinary: See present illness. Neurologic: No motor or sensory loss. No seizures. Endocrine: The patient is a diabetic and she also has hypothyroidism. Integument: No rashes PREVIOUS HOSPITALIZATIONS AND OPERATIONS: She has had labor and deliveries, a hysterectomy, a bilateral total shoulder arthroplasty, a bilateral total hip arthroplasty, a right total knee arthroplasty, a cholecystectomy, an appendectomy, a colectomy for which 8 inches if colon was removed because of precancerous polyps present. MEDICAL DISEASES: Positive for borderline diabetes, hypothyroidism, hypertension, hyperlipidemia, and precancerous colon polyps. The patient also has renal calculi. INFECTIOUS DISEASE HISTORY: Positive for recurrent urinary tract infections. FAMILY HISTORY: Positive for hypertension, myocardial infarction, and dementia. SOCIAL HISTORY: The patient [place] . [place] She does not have any pets. She does not have any drug allergies. She does not smoke cigarettes, drink alcoholic beverages or abuse drugs. HOME MEDICATIONS: Include the followin. Tylenol. 2. Aspirin. 3. Tricor. 4. Synthroid. 5. Bystolic. 6. Xarelto. PHYSICAL EXAMINATION: Vital Signs: Temperature earlier was 100.3 degrees, it is 98.7 degrees now, pulse 95, respirations 18, blood pressure 142/55. The patient is 5 feet 6 inches tall, weighs 201 pounds. General: This is an obese, elderly female. She is in no acute distress. Head/eyes/ears/nose/throat: She can hear my spoken words and see near objects. She does not have any white coating on her tongue. Neck: No meningismus. Lungs: A few rales were heard in the right base. The left lung was clear. Cardiovascular: Heart rate is regular. Abdomen: Soft and nontender. The patient's incision sites from the robotic surgery she had about 10 days ago are all intact and they are not erythematous. Neurologic: The patient is alert. She is able to ambulate there. Her memory as regarding her medical history is intact. Integument: No rash noted. Thank you for the consult. cc: Konrad Luis MD
[2018-08-15] MEDS: MYCAMINE 100 MG in NS 100 ML IV SCH (14:54)
--- NOTE | 2018-08-15 15:24 | Diag Imaging Result Doc PS360 ---
EXAM: CT GUIDE ABD DRAINAGE W/CATH 08/15/2018 HISTORY: left urinoma, abdominal pain TECHNIQUE: CT-guided percutaneous drainage of left-sided fluid collection COMMENT: The risks and benefits of the procedure including the possibility of bleeding, infection, or reaction to lidocaine was discussed with patient and she agreed to the procedure. Following sterile preparation of the skin anterolaterally over the left abdomen and administration of 1% lidocaine to the skin and deeper soft tissues, a 10.2-Norwegian cope loop catheter was inserted by trocar technique into the fluid collection which was demonstrated on the previous study of 08/14/2018. There are no immediate complications. Following placement of the catheter there is marked decrease in the volume of the fluid collection. IMPRESSION: Successful placement of drainage catheter in urinoma on the left. Electronically signed by Raúl Coburn 08/15/2018 3:22 PM
--- NOTE | 2018-08-15 16:14 | PROGRESS NOTE ---
DATE: 08/15/2018 SUBJECTIVE: The patient is resting comfortably in bed. She complains of abdominal bloating. OBJECTIVE: Vital Signs: Temperature 99 degrees, blood pressure 139/58, heart rate 81, respirations 16, O2 saturation 97% on room air. General: This is a morbidly obese female, lying in bed in no acute distress. Heart: S1, S2 normal. Regular rate and rhythm. Lungs: Clear to auscultation bilaterally. Abdomen: Positive bowel sounds. Soft, nontender, nondistended. Extremities: No edema, no cyanosis. Neurologic: The patient is alert and oriented x3. LABS: White blood cell count 23, hemoglobin 8.3, hematocrit 27, platelets 566. Sodium 139, potassium 3.8, chloride 103, CO2 23. BUN 17, creatinine 1.3, glucose 219. ASSESSMENT AND PLAN: 1. Urinary tract infection in the setting of bilateral nephrolithiasis status post ureteral stent. The patient's antibiotics have been adjusted by Dr. Luis. We will continue to follow up and monitor the culture results. 2. Morbid obesity. Aware. 3. Acute kidney injury. Continue with intravenous fluids. 4. Hypothyroidism. We will restart the Synthroid. 5. Hypertension. Continue on Bystolic. 6. Deep vein thrombosis prophylaxis. Will start the patient on Lovenox. cc: Leann Casper MD
[2018-08-15] MEDS: MAXIPIME 2 GM in NS 100 ML IV SCH (16:16)
[2018-08-15] MEDS: NORCO-5 PO PRN (22:03)
[2018-08-16] MEDS: NS 1,000 ML IV SCH ×3 (02:16→22:13)
[2018-08-16] MEDS: MAXIPIME 2 GM in NS 100 ML IV SCH (02:16)
[2018-08-16] MEDS: SYNTHROID PO SCH (06:38)
[2018-08-16 07:43] LABS: BASO# 0.02 X1000 (0.0-0.2); BASO% 0.1 % (0.0-0.8); EOS# 0.43 X1000 (0.0-0.7); HEMATOCRIT 25.5 % (37.0-47.0); HEMOGLOBIN 7.7 g/dL (12.0-16.0); IMM GRAN# 0.19 X1000 (0.0-0.04); IMM GRAN% 0.9 % (0.0-0.5); LYMPH# 1.98 X1000 (1.2-3.4); MCH 28.3 PG (27-31); MCHC 30.2 g/dL (33-37); MCV 93.8 FL (81-99); MONO# 1.03 X1000 (0.11-0.59); MONO% 4.7 % (1.7-9.3); MPV 10.1 FL (7.4-10.4); NEUT# 18.34 X1000 (1.4-6.5); NEUT% 83.3 % (42.2-75.2); PLT 556 X1000 (130-400); RBC 2.72 XMIL (4.2-5.4); RDW 14.7 % (11.5-14.5); WBC 21.99 X1000 (4.8-10.8)
[2018-08-16 08:00] LABS: AGAP 9; ALB/GLOB RATIO 0.7; ALBUMIN 2.4 g/dL (3.5-5.0); ALKALINE PHOSPHATASE 89 U/L (32-104); BUN 14 mg/dL (8-22); CALCIUM 8.3 mg/dL (8.8-10.2); CHLORIDE 104 mmol/L (98-107); COSMO 280; CREATININE 0.9 mg/dL (0.5-0.9); ESTIMATED GFR > 60; GLUCOSE 195 mg/dL (70-104); GOT 7 U/L (10-30); GPT < 5 U/L (10-36); POTASSIUM 3.7 mmol/L (3.5-5.1); SODIUM 137 mmol/L (136-145); TCO2 24 mmol/L (25-35); TOTAL BILIRUBIN 0.32 mg/dL (0.20-1.00); TOTAL PROTEIN 5.9 g/dL (6.3-8.3)
[2018-08-16 08:05] LABS: BANDS 10 % (0-1); LYMPHS 12 % (21-51); MONO 1 % (1-9); SEGS 75 % (42-75)
[2018-08-16] MEDS: TRICOR PO SCH (08:39)
[2018-08-16] MEDS: BYSTOLIC PO SCH (08:39)
[2018-08-16 09:23] LABS: HEMOGLOBIN A1C 7.3 % (4.8-6.0)
--- NOTE | 2018-08-16 10:41 | PROGRESS NOTE ---
DATE: 08/16/2018 SUBJECTIVE: The patient is resting comfortably in bed. She states that she feels better and was able to sleep last night. OBJECTIVE: Vital Signs: Temperature 98.3 degrees, blood pressure 147/51, heart rate 79, respirations 16, O2 saturation 95% on room air. General: This is an elderly female, lying in bed in no acute distress. Heart: S1, S2 normal. Regular rate and rhythm. Lungs: Equal air entry bilaterally. No crackles. No rales. Abdomen: Positive bowel sounds. There is a drain in place. Extremities: No edema, no cyanosis. Neurologic: The patient is alert and oriented x4. LABORATORY DATA: White blood cell count 21, hemoglobin 7.7, hematocrit 25, platelets 556,000. Sodium 137, potassium 3.7, chloride 104, CO2 24, BUN 14, creatinine 0.9, glucose 195. Hemoglobin A1c 7.3. Albumin 2.4. ASSESSMENT AND PLAN: 1. Urinary tract infection. The urine culture is growing yeast. The patient is currently on micafungin. Further arrangements as per Dr. Luis. 2. Status post CT-guided drainage of a left-sided urinoma. Management as per the urologist. 3. Newly diagnosed diabetes mellitus type 2. The patient has a hemoglobin A1c of 7.3. We will start metformin. We will also consult with the dietitian. 4. History of pulmonary embolism. Continue on Xarelto. 5. Bilateral nephrolithiasis. Aware. 6. Hypothyroidism. Continue on Synthroid. cc: Leann Casper MD
[2018-08-16] MEDS: HUMULIN R SUBQ SCH ×3 (12:32→22:14)
--- NOTE | 2018-08-16 14:09 | INFECTIOUS DISEASE PROGRESS NO ---
DATE: 08/16/2018 PRESENT ILLNESS: Ms. Richard is being treated for a funguria. She is status post cystoscopy with intervention for bilateral hydronephrosis and ureteropelvic junction obstruction. MEDICATIONS: She has been receiving cefepime 2 g IV every 12 hours and micafungin 100 mg IV daily, both of which were started yesterday. PHYSICAL EXAMINATION: Vital Signs: Temperature is 98.3 degrees, pulse rate 79, respiratory rate 16, blood pressure 147/51, O2 saturation is 95% on room air. General: This is an elderly, obese female. She is lying in the bed currently in no acute distress. HEENT: Atraumatic, normocephalic. Oral mucous membranes are pink and moist. Conjunctivae are pale. Neck: Supple. Trachea is midline. Cardiovascular: Heart rate and rhythm are regular. Normal sinus rhythm on the monitor. Respiratory: Lung sounds are clear to auscultation bilaterally. Diminished in the bases. Abdomen: Soft, obese and tender on palpation. There are puncture incisions which are open to air, as well as an accordion drain to the urinoma on the left that has cloudy, pink/yellow drainage. Neurologic: She is awake, alert, and oriented; able to ambulate and move around in the bed with assistance. Generalized weakness is noted. LABORATORY AND X-RAY: Today her white count is 21.99, hemoglobin 7.7, platelet count 556,000. Creatinine is 0.9. Estimated GFR is greater than 60. Total bilirubin 0.32, AST 7, ALT is less than 5 and alkaline phosphatase is 89. Her immunoglobulin levels show an IgA of 276 and IgG of 629. Her urine culture has grown yeast with colony count of greater than 100,000. ASSESSMENT AND PLAN: Ms. Richard is being treated for a funguria. I have called the micro lab and asked them to identify the yeast that is growing in her urine. At this point, we will discontinue cefepime. Her white count is slowly coming down, so for now, we will continue the micafungin as ordered. She has a mildly decreased IgG level, however, at 629, she is not low enough to merit an IVIG transfusion at this point. These plans have been discussed with and recommended by Dr. Luis. COMORBIDITIES: Comorbidities for Ms. Richard include that she is elderly and obese with current renal calculi and a history of multiple UTIs. Dictated by JASON Jewell for Konrad Luis MD cc: Konrad Luis MD [facility]
[2018-08-16] MEDS: MYCAMINE 100 MG in NS 100 ML IV SCH (15:59)
[2018-08-16] MEDS: GLUCOPHAGE PO SCH (18:20)
[2018-08-16] MEDS: XARELTO PO SCH (18:20)
[2018-08-16] MEDS: MYLICON PO PRN (18:26)
[2018-08-16] MEDS: NORCO-5 PO PRN (22:13)
[2018-08-17] MEDS: HUMULIN R SUBQ SCH ×4 (06:04→21:58)
[2018-08-17] MEDS: SYNTHROID PO SCH (06:04)
[2018-08-17] MEDS: NS 1,000 ML IV SCH (06:07)
[2018-08-17 07:33] LABS: BASO# 0.05 X1000 (0.0-0.2); BASO% 0.3 % (0.0-0.8); EOS# 0.66 X1000 (0.0-0.7); EOS% 3.7 % (0.0-10.0); HEMATOCRIT 25.7 % (37.0-47.0); HEMOGLOBIN 7.8 g/dL (12.0-16.0); IMM GRAN# 0.21 X1000 (0.0-0.04); IMM GRAN% 1.2 % (0.0-0.5); LYMPH# 2.55 X1000 (1.2-3.4); LYMPH% 14.2 % (20.5-51.1); MCH 28.3 PG (27-31); MCHC 30.4 g/dL (33-37); MCV 93.1 FL (81-99); MONO# 0.86 X1000 (0.11-0.59); MONO% 4.8 % (1.7-9.3); MPV 10.1 FL (7.4-10.4); NEUT% 75.8 % (42.2-75.2); PLT 568 X1000 (130-400); RBC 2.76 XMIL (4.2-5.4); RDW 14.7 % (11.5-14.5); WBC 17.93 X1000 (4.8-10.8)
[2018-08-17 07:57] LABS: AGAP 9; BUN 15 mg/dL (8-22); CALCIUM 7.5 mg/dL (8.8-10.2); CHLORIDE 104 mmol/L (98-107); COSMO 276; CREATININE 0.7 mg/dL (0.5-0.9); ESTIMATED GFR > 60; GLUCOSE 124 mg/dL (70-104); POTASSIUM 3.3 mmol/L (3.5-5.1); SODIUM 137 mmol/L (136-145); TCO2 24 mmol/L (25-35)
[2018-08-17 07:58] LABS: IRON SATURATION 40 %; TIBC 156 ug/dL; TOTAL IRON 62 ug/dL (49-151); UNBOUND IRON 94 ug/dL (112-346)
[2018-08-17 08:43] LABS: FERRITIN 2589 ng/mL (13-150)
[2018-08-17] MEDS ORDERED: POTASSIUM CHLORIDE 20% LIQUID PO ONE (09:51)
[2018-08-17] MEDS: GLUCOPHAGE PO SCH ×2 (10:11→17:20)
[2018-08-17] MEDS: LEVEMIR SUBQ SCH (10:12)
[2018-08-17] MEDS: BYSTOLIC PO SCH (10:12)
[2018-08-17] MEDS: TRICOR PO SCH (10:12)
--- NOTE | 2018-08-17 11:26 | PROGRESS NOTE ---
DATE: 08/16/2018 SUBJECTIVE: Ms. Richard underwent CT-guided placement of drain to evacuate her urinoma. She reports she has felt better. Her nausea is improved, and she has been able to tolerate solid food. OBJECTIVE: Vital Signs: T 95 degrees, P 81, BP 139/52. Her drain was recorded in the amount of 60 mL. General: On physical examination, no acute distress. Abdomen: Nontender, nondistended. : Bladder nontender to palpation. Drain has serosanguineous fluid. PERTINENT LABORATORY DATA: White cell count is 22,000, creatinine is 0.9. MICROBIOLOGY: Urine culture revealed yeast. IMAGING: Pertinent images: None. ASSESSMENT: A 78-year-old female, who recently had left robotic pyeloplasty and pyelolithotomy stent placement, who was admitted with back pain, abdominal pain, leukocytosis and had urinoma. She underwent drainage. Patient's family was present and, over the speaker telephone, we had a prolonged discussion of plan of care. I have strongly recommended keeping the drain for now as that will hopefully prevent any recollection of urinoma. Obviously it is located in the perineum, and hence will continue to have some drainage. Advised for Ms. Richard to keep the drain, in at least until the middle of next week. Her stent appeared to be in appropriate position on the original CAT scan on 08/14/2018. There was no reason to re-position it. She has been treated with Micafungin by Dr. Luis for yeast urine culture. I have discussed with the family that from standpoint, at this time there are no interventions that need to be done. I will be happy to see her in the middle of next week in clinic, at which point we will send off the fluid and the drain for creatinine, and proceed with drain management from there. The family voiced understanding; their questions were answered. PLAN: 1. When patient is ready to be discharged from the Hospitalist Service, she will go home with a drain and the ureteral stent. 2. I will see her in clinic the middle of next week to check the fluid in the drain for creatinine and proceed from there. cc: Wai Monge MD
--- NOTE | 2018-08-17 11:51 | PROGRESS NOTE ---
DATE: 08/17/2018 SUBJECTIVE: The patient states that she feels much better today. She is sitting up in a chair and had breakfast. The drain is in place in her abdomen. OBJECTIVE: Vital Signs: Temperature 98.5 degrees, blood pressure 150/56, heart rate 64, respirations 18, O2 saturation 96% on room air. General: This is a morbidly obese female sitting up in a chair in no acute distress. Heart: S1, S2 normal. Regular rate and rhythm. Lungs: Clear to auscultation bilaterally. Abdomen: Positive bowel sounds. Soft. There is a drain in place. Extremities: Trace pedal edema. No cyanosis. No calf tenderness. Neurologic: The patient is alert and oriented x4. LABS: White blood cell count 17, hemoglobin 7.8, hematocrit 25, platelets 568. Sodium 137, potassium 3.3, chloride 104, CO2 24. BUN 15, creatinine 0.7, glucose 124, calcium 7.5. ASSESSMENT AND PLAN: 1. Urinoma, status post computed tomography-guided drainage. Management as per the urologist. 2. Status post left pyeloplasty, pyelolithotomy and ureteral stent placement. Aware. 3. Urinary tract infection secondary to yeast. The patient is on micafungin as directed by Dr. Luis. 4. Newly-diagnosed diabetes mellitus type 2. The patient has been started on Levemir and metformin. We will monitor the blood sugars and adjust the patient's regimen. 5. Morbid obesity. The patient has been counseled about weight loss and proper diet. 6. Hypertension. Continue on Bystolic. 7. History of pulmonary embolism. Continue on Xarelto. 8. Hypothyroidism. Continue on Synthroid. 9. Acute kidney injury. Resolved. 10. Anemia. We will continue to monitor the hemoglobin and hematocrit closely. 11. We will consult with physical therapy. cc: Leann Casper MD
[2018-08-17] MEDS: MYLICON PO PRN (12:25)
[2018-08-17] MEDS: MYCAMINE 100 MG in NS 100 ML IV SCH (15:32)
[2018-08-17] MEDS: XARELTO PO SCH (17:20)
[2018-08-18] MEDS: NORCO-5 PO PRN (01:28)
[2018-08-18] MEDS: HUMULIN R SUBQ SCH ×4 (06:12→21:30)
[2018-08-18] MEDS: SYNTHROID PO SCH (06:13)
[2018-08-18 07:58] LABS: BASO# 0.07 X1000 (0.0-0.2); BASO% 0.4 % (0.0-0.8); EOS# 0.41 X1000 (0.0-0.7); EOS% 2.5 % (0.0-10.0); HEMATOCRIT 26.1 % (37.0-47.0); IMM GRAN# 0.29 X1000 (0.0-0.04); IMM GRAN% 1.7 % (0.0-0.5); LYMPH# 2.48 X1000 (1.2-3.4); LYMPH% 14.9 % (20.5-51.1); MCH 28.3 PG (27-31); MCHC 30.7 g/dL (33-37); MCV 92.2 FL (81-99); MONO# 1.07 X1000 (0.11-0.59); MONO% 6.4 % (1.7-9.3); MPV 10.1 FL (7.4-10.4); NEUT# 12.37 X1000 (1.4-6.5); NEUT% 74.1 % (42.2-75.2); PLT 651 X1000 (130-400); RBC 2.83 XMIL (4.2-5.4); RDW 14.3 % (11.5-14.5); WBC 16.69 X1000 (4.8-10.8)
[2018-08-18 08:08] LABS: AGAP 4; BUN 11 mg/dL (8-22); CALCIUM 7.9 mg/dL (8.8-10.2); CHLORIDE 105 mmol/L (98-107); COSMO 274; CREATININE 0.7 mg/dL (0.5-0.9); ESTIMATED GFR > 60; GLUCOSE 78 mg/dL (70-104); POTASSIUM 3.6 mmol/L (3.5-5.1); SODIUM 138 mmol/L (136-145); TCO2 29 mmol/L (25-35)
[2018-08-18] MEDS: BYSTOLIC PO SCH (10:23)
[2018-08-18] MEDS: TRICOR PO SCH (10:24)
[2018-08-18] MEDS: LEVEMIR SUBQ SCH (10:24)
[2018-08-18] MEDS: GLUCOPHAGE PO SCH ×2 (10:24→17:15)
--- NOTE | 2018-08-18 14:58 | INFECTIOUS DISEASE PROGRESS NO ---
DATE: 08/18/2018 Patient has fungal urinary tract infection. MEDICATIONS: The patient is on micafungin. PHYSICAL EXAMINATION: Vital Signs: Temperature is 98.1 degrees, pulse 66, respirations 18, blood pressure 168/64. General: This is a somewhat ill-appearing, elderly female. She is in no acute distress. Head, eyes, ears, nose, and throat: She can hear my spoken words and see near objects. She does not have any white patches on her tongue or in her mouth. Neck: No pain in her neck with movement of her head or neck. Lungs: Clear to auscultation. Cardiovascular: Regular heart rate. Abdomen: Soft and nontender. A drain is present on the left side. Neurologic: The patient is awake. She is able to walk with the help of a walker. Integument: No rash noted. General: This is a somewhat ill-appearing elderly female. She is in no acute distress. Head, eyes, ears, nose, and throat: She can hear my spoken words and see near objects. No drainage noted from the nose or ears. Neck: No pain in the neck with movement of her neck or head. Lungs: Clear to auscultation. Cardiovascular: Regular heart rate. Abdomen: Soft and nontender. Drain is present on the left side. Neurologic: The patient is alert. She can move her extremities. She is able to ambulate with the help of a walker. Integument: No rash noted. LAB AND X-RAY: CBC shows a white count of 16,690, hemoglobin 8, platelet count 651,000. ASSESSMENT AND PLAN: Patient has fungal urinary tract infection. It is my understanding from Dr. Monge's partner, Dr. Figueroa that the patient had as an outpatient before admitted the hospital treated with fluconazole for urinary tract infection and it did not clear the infection. Therefore, I am going to continue with micafungin for 2 more weeks and after that stop it for about 2 or 3 days and repeat the patient's urine culture. If it still shows yeast, then I will plan on continuing the treatment. If it is clear, then I will probably stop the treatment. I should also mention that the patient did have a marginally low IgG level, the IgG level was 629 and the plan will be in about 6 weeks to repeat the immunoglobulin levels to see if there been any great changes. At its current level of 629 IgG is not IgG deficiency, I think the IgG level of 629 is not causing any recurrent infections and does not require treatment with IVIG. Also, if the patient still has her drain in I will go ahead and try to get and get a culture from the drain also. I have put in a consult for the patient to get a PICC and also put in a consult for Social Service to set up for home IV micafungin. COMORBIDITIES: She is elderly and she has renal calculi which has which I think are responsible for her having multiple urinary tract infections. cc: Konrad Luis MD
--- NOTE | 2018-08-18 16:25 | PROGRESS NOTE ---
DATE: 08/18/2018 SUBJECTIVE: The patient is resting comfortably in bed. She states that she feels a lot better today. No acute events noted overnight. OBJECTIVE: Vital Signs: Temperature 98.1 degrees, blood pressure 168/64, heart rate 66, respirations 18, O2 saturations 98% on room air. General: This is a morbidly obese female lying in bed in no acute distress. Heart: S1, S2 normal. Regular rate and rhythm. Lungs: Equal air entry bilaterally. No crackles. No rales. Abdomen: Positive bowel sounds. Soft, obese, nontender, nondistended. Extremities: No edema, no cyanosis. Neurologic: The patient is alert and oriented x3. LABORATORY DATA: White blood cell count 16, hemoglobin 8, hematocrit 26, platelets 651,000. Sodium 138, potassium 3.6, chloride 105, CO2 of 29, BUN 11, creatinine 0.7, glucose 78. Calcium 7.9. ASSESSMENT AND PLAN: 1. Urinoma status post CT-guided drainage. Stable. 2. Status post left pyeloplasty, pyelolithotomy, and ureteral stent placement. Aware. 3. Urinary tract infection secondary to yeast. The patient will be treated with micafungin for a total of [address] Luis. The patient is scheduled to undergo PICC line placement tomorrow so that patient can continue the infusions as outpatient. 4. Diabetes mellitus type 2. Continue on metformin and Levemir. The patient has been seen by the dietitian. 5. Morbid obesity. The patient has been counseled about weight loss and proper diet. 6. Anemia. Stable. 7. Hypothyroidism. Continue on Synthroid. 8. History of pulmonary embolism. Continue on Xarelto. 9. Hypertension. Continue on Bystolic. 10. Leukocytosis. Improved. Continue with antifungal treatment. 11. Disposition. The patient should be able to be discharged home with home health services tomorrow after the PICC line is placed. cc: MD ALYX Medel
[2018-08-18] MEDS: MYCAMINE 100 MG in NS 100 ML IV SCH (17:15)
[2018-08-18] MEDS: XARELTO PO SCH (17:15)
[2018-08-19] MEDS: SYNTHROID PO SCH (06:26)
[2018-08-19] MEDS: HUMULIN R SUBQ SCH ×2 (06:26→11:20)
[2018-08-19 07:02] LABS: BASO# 0.07 X1000 (0.0-0.2); BASO% 0.4 % (0.0-0.8); EOS# 0.36 X1000 (0.0-0.7); EOS% 2.2 % (0.0-10.0); HEMATOCRIT 27.8 % (37.0-47.0); HEMOGLOBIN 8.5 g/dL (12.0-16.0); IMM GRAN% 4.2 % (0.0-0.5); LYMPH# 2.22 X1000 (1.2-3.4); LYMPH% 13.5 % (20.5-51.1); MCH 28.1 PG (27-31); MCHC 30.6 g/dL (33-37); MCV 91.7 FL (81-99); MONO# 1.16 X1000 (0.11-0.59); MPV 9.9 FL (7.4-10.4); NEUT# 11.99 X1000 (1.4-6.5); NEUT% 72.7 % (42.2-75.2); PLT 750 X1000 (130-400); RBC 3.03 XMIL (4.2-5.4); RDW 14.3 % (11.5-14.5)
[2018-08-19 07:11] LABS: INR 2.1; PROTIME 25.1 Seconds (11.0-16.0)
[2018-08-19 07:20] LABS: AGAP 10; BUN 9 mg/dL (8-22); CALCIUM 8.2 mg/dL (8.8-10.2); CHLORIDE 101 mmol/L (98-107); COSMO 270; CREATININE 0.7 mg/dL (0.5-0.9); ESTIMATED GFR > 60; GLUCOSE 83 mg/dL (70-104); POTASSIUM 3.6 mmol/L (3.5-5.1); SODIUM 136 mmol/L (136-145); TCO2 25 mmol/L (25-35)
[2018-08-19] MEDS ORDERED: NS 250 ML ONE (08:11)
[2018-08-19] MEDS: TRICOR PO SCH (10:54)
[2018-08-19] MEDS: BYSTOLIC PO SCH (10:54)
[2018-08-19] MEDS: GLUCOPHAGE PO SCH (10:54)
[2018-08-19] MEDS: LEVEMIR SUBQ SCH (10:54)
[2018-08-19 11:06] VITALS: BP 177/60
--- NOTE | 2018-08-19 12:38 | DISCHARGE SUMMARY ---
ADMISSION DATE: 08/14/2018 DISCHARGE DATE: FINAL DISCHARGE DIAGNOSES: 1. Urinoma status post CT-guided drainage. 2. Status post left pyeloplasty, pyelolithotomy, and ureteral stent placement. 3. Urinary tract infection secondary to yeast. 4. Morbid obesity. 5. Diabetes mellitus, type 2, newly diagnosed. 6. Anemia. 7. Hypothyroidism. 8. History of pulmonary embolism, on Xarelto. 9. Hypertension. 10. Leukocytosis. CONSULTATIONS: 1. ID consultation with Dr. Luis. 2. Urology consultation with Dr. Monge. PROCEDURES: CT-guided drainage of a left urinoma. HOSPITAL COURSE: Ms. Richard is a 78-year-old female with a history of multiple medical problems, who initially presented to the ER with a chief complaint of left lower quadrant pain, nausea, and urinary frequency. The patient had recently undergone cystoscopy secondary to UPJ obstruction bilaterally. She then underwent a robotic pyeloplasty and pyelolithotomy with ureteral stent placement. On admission, a renal CT was done that revealed multiple intrarenal stones bilaterally. The patient was also noted to have a urinary tract infection. The patient was admitted to the hospitalist service, and ID as well as Urology were consulted. Blood cultures and urine cultures were obtained. After assessment by Dr. Monge, it was thought that the patient was suffering from a urinoma, and the patient was sent for CT-guided drainage with catheter placement. Ultimately, the urine culture grew out yeast, and the patient was started on micafungin by Dr. Luis. With the initiation of the antifungal treatment, the patient's symptoms improved, and her white blood cell count started to decrease. The patient was noted to have blood sugars in the 200s so a hemoglobin A1c was done, and it was noted to be elevated at 7.3. The patient was started on metformin and Levemir, and her blood sugars improved markedly. The patient was also seen by the dietitian, who provided the patient with dietary recommendations for her to follow once she goes home. It was decided by Dr. Luis that the patient would require 2 weeks of micafungin treatment, so a PICC line was placed, and Suri was consulted to manage the IV micafungin as outpatient. The patient is currently stable for discharge home today. The patient will follow up with both Dr. Monge and Dr. Luis as outpatient upon discharge. DISCHARGE MEDICATIONS: 1. Micafungin 100 mg IV daily x2 weeks. 2. Metformin 500 mg oral twice a day with meals. 3. Levemir 20 units subcutaneous daily. 4. Jefferson 5 mg/325 ng 1 tablet oral every 6 hours p.r.n. for pain. 5. Bystolic 5 mg p.o. daily. 6. Tricor 145 mg oral daily. 7. Synthroid 125 mcg oral daily. 8. Aspirin 81 mg p.o. daily. 9. Xarelto 20 mg p.o. daily. DISCHARGE DIET: 1800 ADA diet, low-sodium diet. ACTIVITY: As tolerated. FOLLOW-UP INSTRUCTIONS: 1. The patient will need to follow up with Dr. Monge on 08/21/2018 as scheduled by his clinic. 2. The patient will also follow up with Dr. Konrad Luis as scheduled by his clinic. cc: MD Leann Guillen MD
[2018-08-19] MEDS: MYCAMINE 100 MG in NS 100 ML IV SCH (14:13)
== END 2018-08-19 16:48 | disposition home health service (06) | DRG 699 ==
LOC: ED 08:24 → 3N 14:12
PROVIDERS: ATTEND Internal Medicine
CPT/HCPCS: 36569; 49041; 49405; 49406; 71010; 71045; 74176; 80048; 80053; 81001; 82550; 82607; 82728; 82746; 82784; 82948; 83036; 83540; 83550; 83605; 84484; 85025; 85610; 85730; 87040; 87088; 93005; 94760; 94761; 96365; 96375; 97161; 97530; 99285; A9270; J0692; J1956; J2248; J2270; J2405; J2543; J7030; J7050; XXXXX

== ENCOUNTER 2018-10-10 08:08 | Inpatient (IN) ==
[2018-10-10] MEDS ORDERED: NORFLEX IM ONE (09:28)
[2018-10-10] MEDS ORDERED: TORADOL IM ONE (09:28)
[2018-10-10] MEDS ORDERED: NORFLEX ONE (09:37)
[2018-10-10 10:01] LABS: BASO# 0.04 X1000 (0.0-0.2); BASO% 0.2 % (0.0-0.8); EOS# 0.07 X1000 (0.0-0.7); EOS% 0.4 % (0.0-10.0); HEMATOCRIT 32.4 % (37.0-47.0); HEMOGLOBIN 10.3 g/dL (12.0-16.0); IMM GRAN# 0.09 X1000 (0.0-0.04); IMM GRAN% 0.5 % (0.0-0.5); LYMPH# 1.42 X1000 (1.2-3.4); LYMPH% 7.9 % (20.5-51.1); MCH 28.9 PG (27-31); MCHC 31.8 g/dL (33-37); MCV 90.8 FL (81-99); MONO# 1.03 X1000 (0.11-0.59); MONO% 5.7 % (1.7-9.3); MPV 10.6 FL (7.4-10.4); NEUT# 15.43 X1000 (1.4-6.5); NEUT% 85.3 % (42.2-75.2); PLT 426 X1000 (130-400); RBC 3.57 XMIL (4.2-5.4); WBC 18.08 X1000 (4.8-10.8)
[2018-10-10 10:12] LABS: AGAP 12; ALBUMIN 3.9 g/dL (3.5-5.0); ALKALINE PHOSPHATASE 99 U/L (32-104); BUN 18 mg/dL (8-22); CALCIUM 8.7 mg/dL (8.8-10.2); CHLORIDE 99 mmol/L (98-107); COSMO 280; CREATININE 0.8 mg/dL (0.5-0.9); ESTIMATED GFR > 60; GLUCOSE 207 mg/dL (70-104); GOT 12 U/L (10-30); GPT 8 U/L (10-36); POTASSIUM 4.3 mmol/L (3.5-5.1); SODIUM 136 mmol/L (136-145); TCO2 25 mmol/L (25-35); TOTAL PROTEIN 6.9 g/dL (6.3-8.3)
--- NOTE | 2018-10-10 10:16 | EKG Report ---
Test Performed on : 10/10/2018 09:39:55 AM Test Reason : neck pain Blood Pressure : / mmHG Vent. Rate : 087 BPM Atrial Rate : 087 BPM P-R Int : 174 ms QRS Dur : 088 ms QT Int : 394 ms P-R-T Axes : 054 -05 050 degrees QTc Int : 474 ms Normal sinus rhythm. Normal ECG When compared with ECG of 14-AUG-2018 09:03, (Unconfirmed) No significant change was found Unconfirmed Result
[2018-10-10 10:20] LABS: LYMPHS 10 % (21-51); MONO 3 % (1-9); SEGS 87 % (42-75)
--- NOTE | 2018-10-10 10:22 | Diag Imaging Result Doc PS360 ---
EXAM: SHOULDER-RIGHT - 10/10/2018 HISTORY: shoulder pain TECHNIQUE: Right shoulder two views COMPARISON: 01/10/2017 right shoulder one view FINDINGS: There is a there is a total shoulder prosthesis, which appears to be in satisfactory alignment. There is no fracture identified. There are no erosive or destructive changes identified. There are degenerative changes at the right acromioclavicular joint. IMPRESSION: Total shoulder prosthesis, which appears to be in satisfactory alignment. No evidence of fracture. Degenerative changes at acromioclavicular joint. Electronically signed by Fortino Ocampo 10/10/2018 10:19 AM
--- NOTE | 2018-10-10 10:36 | Diag Imaging Result Doc PS360 ---
EXAM: CT CERVICAL SPINE W/O CONTRAST - 10/10/2018 HISTORY: severe pain TECHNIQUE: CT cervical spine without contrast COMPARISON: None. FINDINGS: There are degenerative changes at atlantoaxial articulation. There is severe degenerative disease with disc space narrowing, as well as anterior and posterior osteophytes, at C5-6 and C6-7. There is associated mild narrowing the spinal canal at C5-6 and C6-7. There is substantial multilevel degenerative facet disease. There is 2.1 mm anterolisthesis at C3-4 associated with the facet degeneration. There is 2.4 mm anterolisthesis at C4-5 associated with the facet degeneration. There is some multilevel degenerative neural foraminal narrowing. There is no fracture or precervical soft tissue swelling identified. There are atherosclerotic calcifications noted at the bilateral carotid bulb regions. IMPRESSION: Substantial multilevel degenerative disc and degenerative facet disease. Multilevel degenerative neural foraminal narrowing. This exam was performed using automated exposure control, adjustment of mA or kV according to patient size, and/or use of iterative reconstruction technique. Electronically signed by Fortino Ocampo 10/10/2018 10:34 AM
[2018-10-10 11:33] LABS: INR 1.28; PROTIME 16.6 Seconds (11.0-16.0)
[2018-10-10 11:34] LABS: PTT 42.2 Seconds (22.3-41.8)
--- NOTE | 2018-10-10 11:48 | PROVIDER DOCUMENTATION ---
This chart was entered by Kory Leahy Scribe, acting as scribe for Wing Crespo MD. HPI-Musculoskeletal Pain/Inj - GENERAL Chief Complaint: Neck Pain Stated Complaint: NECK PAIN Time Seen by Provider: 10/10/18 08:58 Source: patient, family - HX OF PRESENT ILLNESS-MUSKULOSKELTAL Nature of Presenting Problem: Pt is a 78 yof who presents to the ED with a CC of neck pain. Pt reports she began having shoulder pain three days ago that radiated up her neck to the base of her head. Pt describes the neck pain as severe. Pt denies any recent injury, but states she was seen at [facility] ED last month for back pain. Pt reports a hx of diabetes, frequent UTIs, being anemic, and having blood clots. Pt reports having kidney stones removed from one kidney, states approximately 100 stones were removed and states she has an appointment to have stones removed from her other kidney soon. Pt denies a hx of heart disease and kidney failure. Quality of Pain: reports: aching, sharp, tightness Severity in ED: mild Onset/Duration: 3 days ago Timing: still present Any recent injury?: No Similar Symptoms Previously?: Yes Recently seen or treated by another doctor?: Yes - BACK & NECK PAIN/INJURY Back/Neck Pain Location: reports: C-spine Back/Neck Pain Radiation: reports: shoulders Context / Method of Injury: reports: unknown Associated Symptoms: reports: muscle spasms, sensory/motor loss History of Chronic Neck or Back Pain?: No - UPPER EXTREMITY PAIN/INJURY Extremities Pain Location: shoulder: bilateral Context / Method of Injury: reports: unknown Review of Systems - Adult - REVIEW OF SYSTEMS - ADULT Constitutional: reports: see HPI Eyes: reports: no symptoms reported Ears, Nose, Mouth & Throat: reports: no symptoms reported Cardiovascular: reports: no symptoms reported Respiratory: reports: no symptoms reported Gastrointestinal: reports: no symptoms reported Genitourinary: reports: see HPI Musculoskeletal: reports: see HPI, muscle aches, muscle weakness, neck pain Integumentary: reports: no symptoms reported Neurological: reports: no symptoms reported Psychiatric: reports: no symptoms reported Endocrine: reports: no symptoms reported Hematologic/Lymphatic: reports: no symptoms reported Allergic/Immunologic: reports: no symptoms reported All Other Systems: Reviewed and Negative Past History - Adult - PAST MEDICAL HISTORY-ADULT Review of Records: reports: Old Records Reviewed, Nursing Assessment Review, Medications Reviewed, Social history reviewed & non-contributory. Major Childhood Illnesses: reports: denies history Cardiovascular: reports: blood clots, HTN Respiratory: reports: denies history Gastrointestinal: reports: denies history Obstetrical/Gynecological: reports: denies history Genitourinary: reports: denies history Musculoskeletal: reports: denies history Neurological: reports: denies history Endocrine/Immune: reports: Diabetes, thyroid disorder Other Conditions: reports: denies history - PRIOR SURGERIES/PROCEDURES Surgical/Procedure History: reports: hysterectomy, bowel surgery (colon resection), orthopedic (extremity) - IMMUNIZATION STATUS Childhood Immunizations: See Nurse Assessment Flu Vaccine: See Nurse Assessment - FAMILY HISTORY Family History: reviewed, not pertinent - SOCIAL HISTORY Smoking: denies, non-smoker Substance Use: none/never, denies Alcohol Use Frequency: never Physical Exam-Injury Related - Physical Exam-Injury Related Initial Vital Signs Reviewed: Yes General Appearance: alert, mild distress Eyes: PERRL/EOMI, pink conjunctivae Neck: limited range of motion, muscle spasm, pain on movement, tender lateral, tender midline Respiratory: chest non-tender, lungs clear, normal breath sounds, no pleuratic chest pain, no respiratory distress Cardiovascular: normal peripheral pulses, regular rate, rhythm, no edema, no gallop, no JVD Abdominal Exam: non tender, soft Integumentary: normal color, warm/dry Neurologic: grossly normal Psych/Mental Status: normal mood/affect, normal thought content, normal thought process, oriented x 3 Progress - PLAN OF CARE/RESULTS Progress/Plan/Lab Results: Vital Signs - 8 hr 10/10/18 08:10 10/10/18 12:27 Temperature 98 F 98.6 F Pulse Rate 90 87 Respiratory Rate 18 18 Blood Pressure 101/65 157/79 O2 Sat by Pulse Oximetry 95 98 Laboratory Results - last 24 hr 10/10/18 10/10/18 10/10/18 09:45 09:45 09:45 WBC 18.08 H RBC 3.57 L Hgb 10.3 L Hct 32.4 L MCV 90.8 MCH 28.9 MCHC 31.8 L RDW Std Deviation 14.0 Plt Count 426 H MPV 10.6 H Immature Gran % (Auto) 0.5 Neut % (Auto) 85.3 H Lymph % (Auto) 7.9 L [place] % (Auto) 5.7 Eos % (Auto) 0.4 Baso % (Auto) 0.2 Immature Gran # (Auto) 0.09 H Neut # (Auto) 15.43 H Lymph # (Auto) 1.42 [place] # (Auto) 1.03 H Eos # (Auto) 0.07 Baso # (Auto) 0.04 Segmented Neutrophils 87 H Lymphocytes 10 L Monocytes 3 PT INR PTT (Actin FS) Sodium 136 Potassium 4.3 Chloride 99 Carbon Dioxide 25 Anion Gap 12 BUN 18 Creatinine 0.8 Estimated GFR/1.73 m2 > 60 BUN/Creatinine Ratio 23 Glucose 207 H Calculated Osmolality 280 Calcium 8.7 L Total Bilirubin 0.50 AST 12 ALT 8 L Alkaline Phosphatase 99 Creatine Kinase Troponin T < 0.010 Total Protein 6.9 Albumin 3.9 Globulin 3.0 Albumin/Globulin Ratio 1.0 Plasma Lactate Urine Source Urine Color Urine Clarity Urine pH Ur Specific [place] Urine Protein Urine Ketones Urine Blood Urine Nitrite Urine Bilirubin Urine Urobilinogen Urine Microscopic RBC Urine WBC Urine Microscopic WBC Ur Epithelial Cells Urine Bacteria Urine Glucose 10/10/18 10/10/18 10/10/18 09:45 09:45 11:30 WBC RBC Hgb Hct MCV MCH MCHC RDW Std Deviation Plt Count MPV Immature Gran % (Auto) Neut % (Auto) Lymph % (Auto) [place] % (Auto) Eos % (Auto) Baso % (Auto) Immature Gran # (Auto) Neut # (Auto) Lymph # (Auto) [place] # (Auto) Eos # (Auto) Baso # (Auto) Segmented Neutrophils Lymphocytes Monocytes PT 16.6 H INR 1.28 PTT (Actin FS) 42.2 H Sodium Potassium Chloride Carbon Dioxide Anion Gap BUN Creatinine Estimated GFR/1.73 m2 BUN/Creatinine Ratio Glucose Calculated Osmolality Calcium Total Bilirubin AST ALT Alkaline Phosphatase Creatine Kinase 12 L Troponin T Total Protein Albumin Globulin Albumin/Globulin Ratio Plasma Lactate Urine Source CLEAN CATCH Urine Color YELLOW Urine Clarity SL. CLOUDY A Urine pH 6.5 Ur Specific [place] 1.010 Urine Protein 2+(100 mg/dL) A Urine Ketones NEGATIVE Urine Blood 4+ Urine Nitrite NEGATIVE Urine Bilirubin NEGATIVE Urine Urobilinogen NORMAL Urine Microscopic RBC TNTC A Urine WBC 2+ A Urine Microscopic WBC TNTC A Ur Epithelial Cells <10 Urine Bacteria 2+ Urine Glucose NEGATIVE 10/10/18 11:55 WBC RBC Hgb Hct MCV MCH MCHC RDW Std Deviation Plt Count MPV Immature Gran % (Auto) Neut % (Auto) Lymph % (Auto) [place] % (Auto) Eos % (Auto) Baso % (Auto) Immature Gran # (Auto) Neut # (Auto) Lymph # (Auto) [place] # (Auto) Eos # (Auto) Baso # (Auto) Segmented Neutrophils Lymphocytes Monocytes PT INR PTT (Actin FS) Sodium Potassium Chloride Carbon Dioxide Anion Gap BUN Creatinine Estimated GFR/1.73 m2 BUN/Creatinine Ratio Glucose Calculated Osmolality Calcium Total Bilirubin AST ALT Alkaline Phosphatase Creatine Kinase Troponin T Total Protein Albumin Globulin Albumin/Globulin Ratio Plasma Lactate 1.3 Urine Source Urine Color Urine Clarity Urine pH Ur Specific [place] Urine Protein Urine Ketones Urine Blood Urine Nitrite Urine Bilirubin Urine Urobilinogen Urine Microscopic RBC Urine WBC Urine Microscopic WBC Ur Epithelial Cells Urine Bacteria Urine Glucose Orders Category Date Time Status Cardiac Monitoring DIRECTED Care 10/10/18 11:17 Active IV Insertion ORDERED Care 10/10/18 11:17 Active Notify MD of + Sepsis Screen NOW Care 10/10/18 11:17 Active Notify Physician As Ordered Care 10/10/18 11:17 Active Nursing- Obtain EKG ONCE Care 10/10/18 09:27 Active CHEST-1 VIEW [RAD] Stat Exams 10/10/18 11:[address] CERVICAL SPINE W/O CONTRAST [CT] Stat Exams 10/10/18 09:55 Completed SHOULDER-RIGHT [RAD] Stat Exams 10/10/18 09:27 Completed BLOOD CULTURE [BLDCUL] Stat Lab 10/10/18 11:19 Ordered CBC WITH DIFF [HEME] Stat Lab 10/10/18 09:45 Completed CK PROFILE [SP CHEM] Stat Lab 10/10/18 09:45 Completed COMPREHENSIVE METABOLIC PANEL [CHEM] Stat Lab 10/10/18 09:45 Completed LACTATE, PLASMA [CHEM] Lab 10/10/18 11:55 Completed LACTATE, PLASMA [CHEM] Lab 10/10/18 14:30 Uncollected LACTATE, PLASMA [CHEM] Lab 10/10/18 17:30 Uncollected PROTIME WITH INR [COAG] Stat Lab 10/10/18 09:45 Completed PTT [COAG] Stat Lab 10/10/18 09:45 Completed TROPONIN T Stat Lab 10/10/18 09:45 Completed URINE CULTURE [RM] Routine Lab 10/10/18 12:03 Ordered ua [URINALYSIS PL W/POSS RFLX CULT] [URINALYSIS] Stat Lab 10/10/18 11:30 Completed Ketorolac [Toradol] Med 10/10/18 09:28 Discontinued 15 mg IM NOW ONE Orphenadrine [Norflex] Med 10/10/18 09:37 Discontinued 60 mg .ROUTE .STK-MED ONE Orphenadrine [Norflex] Med 10/10/18 09:28 Discontinued 60 mg IM NOW ONE Oxygen Device Stat Oth 10/10/18 11:17 Active EKG [EKG] Stat Ther 10/10/18 09:27 Draft Pt refused LP in the ER. Result Diagrams: 10/10/18 09:45 10/10/18 09:45 - EKG 1 Time of EKG reading by physician:: 09:39 EKG Read and Signed by:: Wing Crespo EKG Interpretation (*Must complete 3 of following elements*): Normal Rate: 87 Rhythm: NSR [place]: normal QRS: normal [place] Interval: normal ST Wave: normal - XRAY 1 XRAY: Bilateral XRAY Study: Chest Impression: See EMR Report (EXAM: CHEST-1 VIEW 10/10/2018 HISTORY: r/o sepsis TECHNIQUE: AP portable at 1202 COMMENT: There are bilateral shoulder prostheses. There is no evidence of acute cardiac or pulmonary disease. Compared to 08/28/2018 the atelectatic changes in the left base have improved. IMPRESSION: No evidence of acute disease. Electronically signed by Raúl Coburn 10/10/2018 11:54 AM 10/10/18 1152 Interpreting Physician: Raúl Coburn MD Dictated Date/Time: 10/10/18 1153 cc: Wing Crespo MD; Baljinder Patel MD) 2 XRAY: Right XRAY Study: Shoulder Impression: See EMR Report (EXAM: SHOULDER-RIGHT - 10/10/2018 HISTORY: shoulder pain TECHNIQUE: Right shoulder two views COMPARISON: 01/10/2017 right shoulder one view FINDINGS: There is a there is a total shoulder prosthesis, which appears to be in satisfactory alignment. There is no fracture identified. There are no erosive or destructive changes identified. There are degenerative changes at the right acromioclavicular joint. IMPRESSION: Total shoulder prosthesis, which appears to be in satisfactory alignment. No evidence of fractu re. Degenerative changes at acromioclavicular joint. Electronically signed by Fortino Ocampo 10/10/2018 10:19 AM 10/10/18 1019 Interpreting Physician: Fortino Ocampo MD Dictated Date/Time: 10/10/18 1017 cc: Wing Crespo MD; Baljinder Patel MD) - CT/MRI 1 CT Study: Cervical Spine Impression: See EMR Report ( EXAM: CT CERVICAL SPINE W/O CONTRAST - 10/10/2018 HISTORY: severe pain TECHNIQUE: CT cervical spine without contrast COMPARISON: None. FINDINGS: There are degenerative changes at atlantoaxial articulation. There is severe degenerative disease with disc space narrowing, as well as anterior and posterior osteophytes, at C5-6 and C6-7. There is associated mild narrowing the spinal canal at C5-6 and C6-7. There is substantial multilevel degenerative facet disease. There is 2.1 mm anterolisthesis at C3-4 associated with the facet degeneration. There is 2.4 mm anterolisthesis at C4-5 associated with the facet degeneration. There is some multilevel degenerative neural foraminal narrowing. There is no fracture or precervical soft tissue swelling identified. There are atherosclerotic calcifications noted at the bilateral carotid bulb regions. IMPRESSION: Substantial multilevel degenerative disc and degenerative facet disease. Multilevel degenerative neural foraminal narrowing. This exam was performed using automated exposure control, adjustment of mA or kV according to patient size, and/or use of iterative reconstruction technique. Electronically signed by Fortino Ocampo 10/10/2018 10:34 AM 10/10/18 1034 Interpreting Physician: Fortino Ocampo MD Dictated Date/Time: 10/10/18 1020 cc: Wing Crespo MD; Baljinder Patel MD) - CONSULTS/PCP/HOSPITALIST Notification #1 *Consult/PCP/Hospitalist*: Dr. Monge (Urology) Time Discussed: #2 Consult: Dr. Rodriguez Time Discussed: Consult Disposition: Will see in ED, Admit Departure - Departure Date of Disposition Decision: 10/10/18 Time of Disposition Decision: 11:47 DIAGNOSIS: Urinoma, Leukocytosis, UTI (urinary tract infection), Cervical paraspinal muscle spasm Disposition: ADMITTED INPATIENT 09 Certified Medical Emergency: Emergent Condition: Fair Additional Freetext Instructions: ED Follow Up Instructions: You have been treated by a care provider in the Emergency Department. These instructions are being provided to you so you can have an understanding of how to care for yourself upon discharge. Upon discharge from the Emergency Department, you are responsible for making arrangements for follow-up care by a physician of your choice. Take all prescribed medications as directed. Return to the Emergency Department immediately for any new or worsening symptoms. You may call the Physician Referral phone number at [phone] to obtain a list of Physicians who are taking new patients. Referrals and Follow-Ups: Baljinder Patel MD [Primary Care Provider] - - Critical Care Note This patient required my direct & personal management of CC.: No Attestation - Physician/ REJI Attestation Patient care was provided by Advanced Practice Provider:: No The physician spent face to face time with patient:: Yes Advanced Practice Provider documentation review:: Supervising physician onsite and consulted in the evaluation and care of this patient. The physician did have a face to face encounter with the patient. This chart was documented by the indicated scribe, (Kory Leahy, [place]) and accurately reflects the services I performed and decisions made by me, Wing Crespo MD, as attested by the provider's signature.
[2018-10-10 11:51] LABS: BILIRUBIN URINE NEGATIVE (NEGATIVE); BLOOD URINE 4+ (NEGATIVE); CLARITY SL. CLOUDY (CLEAR); COLOR YELLOW; GLUCOSE URINE NEGATIVE (NEGATIVE); KETONE URINE NEGATIVE (NEGATIVE); LEUKOCYTES URINE 2+ (NEGATIVE); NITRITE URINE NEGATIVE (NEGATIVE); PH URINE 6.5; PROTEIN URINE 2+(100 mg/dL) mg/dL (NEGATIVE); UROBILINOGEN URINE NORMAL
--- NOTE | 2018-10-10 11:56 | Diag Imaging Result Doc PS360 ---
EXAM: CHEST-1 VIEW 10/10/2018 HISTORY: r/o sepsis TECHNIQUE: AP portable at 1202 COMMENT: There are bilateral shoulder prostheses. There is no evidence of acute cardiac or pulmonary disease. Compared to 08/28/2018 the atelectatic changes in the left base have improved. IMPRESSION: No evidence of acute disease. Electronically signed by Raúl Coburn 10/10/2018 11:54 AM
[2018-10-10 12:03] LABS: URINE BACTERIA 2+ /HFP; URINE EPITHELIAL CELLS <10 /HPF (<10); URINE RBC TNTC /HPF (<10); URINE SOURCE CLEAN CATCH; URINE WBC TNTC /HPF (<10)
[2018-10-10] MEDS ORDERED: ROCEPHIN 1 GM in NS 50 ML IV ONE (12:42)
[2018-10-10] MEDS ORDERED: MYCAMINE 100 MG in NS 100 ML IV SCH (13:45)
[2018-10-10] MEDS ORDERED: VANCOMYCIN IV PER PHARMACY MISC SCH (13:45)
[2018-10-10] MEDS ORDERED: NS 1,000 ML IV SCH (13:45)
[2018-10-10] MEDS ORDERED: VANCOMYCIN 1,750 MG in NS 250 ML IV ONE (14:30)
[2018-10-10] MEDS ORDERED: GLUCOPHAGE PO SCH (17:00)
[2018-10-10] MEDS ORDERED: XARELTO PO SCH (17:00)
[2018-10-10] MEDS ORDERED: DILAUDID IV ONE (17:03)
[2018-10-10] MEDS ORDERED: ZOFRAN IV ONE (17:03)
--- NOTE | 2018-10-10 19:41 | HISTORY AND PHYSICAL ---
CHIEF COMPLAINT: Neck pain. HISTORY OF PRESENT ILLNESS: This is a 78-year-old female with a history of diabetes mellitus type 2, hypothyroid, hypertension, pulmonary embolism with recurrent urinary tract infection secondary to yeast. She presents to the emergency room complaining of neck pain. She stated that 3 days ago she started feeling what she thought was a crick in the left side of her neck. It hurt when she moved, but she was able to move her neck and perform her activities of daily living. She woke this morning stating that the pain was severe. It went from her neck to the base of her skull. Her head was slightly turned to the left, and she was unable to move. She denied any recent injury. She was given Dilaudid as well as Toradol and Norflex. At the time of my exam, the pain had relieved to a 2 to 3/10. She was able to move her head to the right and stare straight ahead. She just could not turn to the left. CT of the cervical spine without contrast revealed substantial multilevel degenerative disks and degenerative facet disease with multilevel degenerative neural foraminal narrowing. She was found to have a white count of 18 with urinalysis that revealed too numerous to count microscopic red blood cells, white blood cells with 2+ bacteria. Ms. Richard has a complicated urologic history having bilateral ureteropelvic junction obstructions, numerous bilateral renal stones close to 100 in each kidney. She underwent robotic assisted laparoscopic left pyeloplasty with left ureteral stent removal on 08/07/2018. She did develop a yeast infection during this time, which was present on 6 cultures as well as Enterococcus in her urine. She subsequently developed a urinoma and underwent CT-guided drainage per Radiology, which she tolerated well. She was discharged from the hospital on August 25, receiving micafungin and Briova for 2 weeks on an outpatient basis followed by Dr. Luis. She states that when the PICC line was pulled, she was placed on amoxicillin 500 mg b.i.d. that she has taken from September 04 until today. PAST MEDICAL HISTORY: 1. Pulmonary embolism on chronic anticoagulation. 2. Recurrent urinary tract infections and yeast. 3. Hypertension. 4. Hypothyroid. 5. Bilateral renal stones. 6. 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 PAST SURGICAL HISTORY: 1. Recent left robotic-assisted laparoscopic pyeloplasty and pyelolithotomy. 2. Bladder sling. 3. Bilateral hip replacement. 4. Colon resection. 5. Hysterectomy. 6. Drainage of urinoma. ALLERGIES: No known drug allergies. HOME MEDICATIONS: A list will be obtained by the nursing staff and once verified will review and start as appropriate. REVIEW OF SYSTEMS: Discussed with patient with pertinent positives stated in HPI. She denied any chest pain, palpitations, syncope, dizziness, shortness of breath, cough, fever, chills, any nausea, vomiting, diarrhea, constipation, black or bloody vomitus or stools. PHYSICAL EXAMINATION: GENERAL: This is a 78-year-old female who is lying on the stretcher in the emergency room in no distress. VITAL SIGNS: Blood pressure is 150/76 with a heart rate of 87, respirations 18, temperature is 98.6 degrees with room air saturations 98%. EYES: Pupils are equal, round, react to light. EOMs are intact. Sclerae anicteric. HENT: Head is normocephalic, atraumatic. Mucous membranes are moist. NECK: Has limited range of motion. She does have pain on movement. She does have left lateral tenderness to palpation. CARDIOVASCULAR: Regular rate and rhythm. S1 and S2 appreciated. Calves are nontender bilateral. Peripheral pulses are palpable x4 extremities. PULMONARY: Breath sounds are clear. No increased work of breathing noted. Chest rise and fall symmetric with respirations. Chest wall is nontender to palpation. GASTROINTESTINAL: Soft, nontender, nondistended with bowel sounds in all 4 quadrants. NEUROLOGIC: She is alert and oriented x3. SKIN: Warm and dry. LABORATORY DATA: WBC is 18 with hemoglobin 10.3, hematocrit 32.4, platelets of 426,000. Sodium 136, potassium 4.3, BUN 18, creatinine 0.8 with glucose of 207. Blood cultures and urine culture pending. ASSESSMENT AND PLAN: 1. Leukocytosis. 2. Probable urinary tract infection in a patient with recurrent yeast infection. 3. Cervical paraspinal muscle spasm. 4. History of pulmonary embolism on chronic anticoagulation. 5. Hypertension. 6. Hypothyroid. 7. Diabetes mellitus type 2. PLAN: The patient will be admitted and transferred to [facility]. We will consult Dr. Monge. We will continue with IV hydration, antibiotic coverage of vancomycin. We will start micafungin. We will identify her home medications and continue as appropriate. She will be placed on pattern blood glucose with sliding scale insulin. Continue with IV hydration. Repeat a CBC and BMP in the morning. Further treatments pending hospital course. Dictated by JASON Ma for Randall Rodriguez MD cc: JASON Ma MD
--- NOTE | 2018-10-10 20:07 | HISTORY AND PHYSICAL ---
ADDENDUM: Patient seen and examined by myself. Full note dictated and discussed with nurse practitioner. She presented to the hospital with complaint of neck pain, frequent UTIs, history of diabetes. She is followed by Dr. Monge. She has had multiple stones in the past. We are going to admit her to the hospital. It appears as though she has recurrent urinary tract infection. Placed her on antibiotics and will consult Dr. Monge for further assistance. cc: Randall Rodriguez MD
[2018-10-10] MEDS ORDERED: ZOCOR PO SCH (21:00)
[2018-10-10] MEDS: ROBAXIN PO SCH (21:38)
[2018-10-11] MEDS ORDERED: NORCO-7.5 PO ONE (00:10)
[2018-10-11] MEDS: HUMALOG SUBQ SCH ×5 (02:40→21:35)
[2018-10-11] MEDS: ROBAXIN PO SCH ×3 (06:03→21:46)
[2018-10-11 06:09] LABS: BASO# 0.04 X1000 (0.0-0.2); BASO% 0.3 % (0.0-0.8); EOS# 0.22 X1000 (0.0-0.7); EOS% 1.5 % (0.0-10.0); HEMATOCRIT 31.1 % (37.0-47.0); HEMOGLOBIN 9.7 g/dL (12.0-16.0); IMM GRAN# 0.06 X1000 (0.0-0.04); IMM GRAN% 0.4 % (0.0-0.5); LYMPH# 2.31 X1000 (1.2-3.4); LYMPH% 15.5 % (20.5-51.1); MCH 28.5 PG (27-31); MCHC 31.2 g/dL (33-37); MCV 91.5 FL (81-99); MONO% 7.4 % (1.7-9.3); MPV 10.9 FL (7.4-10.4); NEUT# 11.16 X1000 (1.4-6.5); NEUT% 74.9 % (42.2-75.2); PLT 376 X1000 (130-400); RDW 13.8 % (11.5-14.5); WBC 14.89 X1000 (4.8-10.8)
[2018-10-11 06:30] LABS: AGAP 11; BUN 19 mg/dL (8-22); CALCIUM 8.8 mg/dL (8.8-10.2); CHLORIDE 101 mmol/L (98-107); COSMO 273; CREATININE 0.8 mg/dL (0.5-0.9); ESTIMATED GFR > 60; GLUCOSE 140 mg/dL (70-104); POTASSIUM 4.1 mmol/L (3.5-5.1); SODIUM 134 mmol/L (136-145); TCO2 22 mmol/L (25-35)
[2018-10-11] MEDS ORDERED: SYNTHROID PO SCH ×3 (07:00→09:00)
[2018-10-11] MEDS ORDERED: PRILOSEC PO SCH (07:00)
[2018-10-11] MEDS ORDERED: INSULIN PEN NEEDLES ONE (07:15)
[2018-10-11] MEDS: TRICOR PO SCH (08:41)
[2018-10-11] MEDS: GLUCOPHAGE PO SCH ×2 (08:41→17:23)
[2018-10-11] MEDS: BYSTOLIC PO SCH (08:41)
[2018-10-11] MEDS: LEVEMIR SUBQ SCH (08:41)
[2018-10-11] MEDS: NS 1,000 ML IV SCH ×2 (08:42→21:46)
[2018-10-11] MEDS ORDERED: LEVEMIR INSULIN *HA SUBQ SCH (09:00)
[2018-10-11] MEDS ORDERED: TRICOR PO SCH (09:00)
[2018-10-11] MEDS ORDERED: BYSTOLIC PO SCH (09:00)
[2018-10-11] MEDS ORDERED: NORFLEX IM ONE (09:42)
[2018-10-11] MEDS ORDERED: TORADOL IV ONE (09:55)
[2018-10-11 11:28] LABS: FREE T4 1.48 ng/dL (0.93-1.70); TSH 0.48 uIUmL (0.27-4.20)
[2018-10-11] MEDS: ZOSYN 3.375 GM in NS 50 ML IV SCH ×2 (12:01→17:23)
--- NOTE | 2018-10-11 12:53 | INFECTIOUS DISEASE PROGRESS NO ---
DATE: 10/11/2018 PRESENT ILLNESS: Ms Richard has been admitted to the hospital with neck pain and has a leukocytosis, for which we have been consulted. We were seeing her in the office as an outpatient for an enterococcal urinary tract infection. She has had lithotripsy done to the left kidney stones. However, there are still multiple right-sided kidney stones which are most likely holding infection. MEDICATIONS: We have been treating her with amoxicillin at home. Here in the hospital, she has she was started on micafungin and vancomycin, which we will discontinue. We will start her on Zosyn 3.375 g IV every 6 hours. PHYSICAL EXAMINATION: Vital Signs: Temperature is 98.1 degrees, pulse rate 82, respiratory rate 15, blood pressure 163/72, O2 saturation is 95% on room air. General: This is a chronically ill-appearing, elderly female. She is lying in bed, currently in no acute distress. HEENT: Atraumatic, normocephalic. Oral mucous membranes are pink and moist. Conjunctivae are pink. Neck: Has a severe decrease in suppleness. She does have some mild dysphagia noted. Cardiovascular: Heart rate is regular. Respiratory: Lung sounds are bilaterally clear to auscultation. No work of breathing is noted. Abdomen: Soft, obese and nontender. Bowel sounds are active. Neurologic: She is awake, alert, oriented, and able to move around and does have some limitations due to severe neck pain. LABORATORY AND X-RAY: Today her white count is 14.89, hemoglobin 9.7, platelet count 376,000. Creatinine Is 0.8. Estimated GFR is greater than 60. C-reactive protein is 147.92. Her urinalysis yesterday showed 2+ white blood cells and urine bacteria. So far, the urine cultures show no growth but that is the preliminary report. Blood cultures are preliminary as well. Previously, she had a yeast and an enterococcal faecalis noted in her urine. EKG shows normal sinus rhythm. Chest x-ray showed no acute disease. CT of the cervical spine showed degenerative disk disease. Shoulder x-ray shows a total shoulder prosthesis with degenerative changes at the joint. ASSESSMENT AND PLAN: Ms. Richard has a leukocytosis which is most likely related to her urinary tract due to the fact that she does have multiple stones in the right kidney. We were giving her amoxicillin at home for prevention of any continued infection, and the plan was for her to have lithotripsy next week to the right kidney stones. At this point, we do not think she has a fungal urinary tract infection. Dr. Monge had seen a yeast infection with his treatments of her in the past, which is why we think her urine has often grown yeast. She was using Gyne-Lotrimin inserted vaginally at home which we will continue here in the hospital and discontinue the micafungin. Also, because of her age, we will discontinue vancomycin and provide Zosyn 3.375 g IV every 6 hours while we await the final culture of her urine. These plans have been discussed with and recommended by Dr. Luis. COMORBIDITIES: She is elderly with a history of pulmonary embolism and chronic anticoagulation, multiple renal calculi in the right kidney with recurrent UTIs. Dictated by JASON Jewell for Konrad Luis MD cc: Konrad Luis MD MTDD
--- NOTE | 2018-10-11 13:12 | PROGRESS NOTE ---
DATE: 10/11/2018 SUBJECTIVE: The patient complains of severe pain and stiffness involving her neck. She states that is the reason why she came to the ER yesterday. She was given a muscle relaxer and an NSAID yesterday which resulted in relief, but now she is hurting again today. OBJECTIVE: Vital Signs: Temperature 98.1 degrees, blood pressure 137/61, heart rate 82, respirations 19, O2 saturation 95% on room air. Urine output 1 L. General: This is a morbidly obese female, lying in bed in no acute distress. Heart: S1, S2 normal. Regular rate and rhythm. Lungs: Clear to auscultation bilaterally. Abdomen: Positive bowel sounds. Soft, nontender, nondistended. Extremities: Trace pedal edema. No cyanosis. No calf tenderness. Neurologic: The patient is alert and oriented x4. LABS: White blood cell count 14, hemoglobin 9.7, hematocrit 31, platelets 376. Sedimentation rate 128. Sodium 134, potassium 4.1, chloride 101, CO2 22. BUN 19, creatinine 0.8, glucose 140. CRP 147.92. ASSESSMENT AND PLAN: 1. Recurrent urinary tract infection. So far, the urine culture is showing no growth. We will continue with antibiotic therapy as directed by Dr. Luis. 2. History of recent urinoma status post CT-guided drainage with status post pyeloplasty, pyelolithotomy, and ureteral stent placement. Will consult with the urologist. 3. Diabetes mellitus type 2. Continue on metformin and sliding scale insulin. 4. History of pulmonary embolism. Continue on Xarelto. 5. Hypothyroidism. Continue on Synthroid. 6. Morbid obesity. Aware. 7. Gastroesophageal reflux disease. Continue on Prilosec. 8. Neck pain. We will give the patient a dose of muscle relaxer and monitor her response. 9. Leukocytosis. Improved. Continue with antibiotic therapy. cc: Leann Casper MD MTDD
[2018-10-11] MEDS: XARELTO PO SCH (17:23)
[2018-10-11] MEDS: ZOCOR PO SCH (21:46)
[2018-10-11] MEDS: GYNE-LOTRIMIN VAGINAL CREAM VAG SCH (21:47)
[2018-10-11] MEDS ORDERED: VANCOMYCIN 1,500 MG in NS 250 ML IV SCH ×6 (22:00)
[2018-10-12] MEDS: ZOSYN 3.375 GM in NS 50 ML IV SCH ×4 (05:18→22:18)
[2018-10-12] MEDS: PRILOSEC PO SCH ×2 (05:18→06:11)
[2018-10-12] MEDS: SYNTHROID PO SCH ×2 (05:18→06:11)
[2018-10-12] MEDS: HUMALOG SUBQ SCH (05:38)
[2018-10-12 06:45] LABS: HEMATOCRIT 32.9 % (37.0-47.0); HEMOGLOBIN 10.2 g/dL (12.0-16.0); MCH 28.6 PG (27-31); MCV 92.2 FL (81-99); MPV 10.8 FL (7.4-10.4); RBC 3.57 XMIL (4.2-5.4); RDW 13.7 % (11.5-14.5); WBC 13.67 X1000 (4.8-10.8)
[2018-10-12 06:58] LABS: AGAP 8; BUN 14 mg/dL (8-22); CALCIUM 9.1 mg/dL (8.8-10.2); CHLORIDE 104 mmol/L (98-107); COSMO 279; CREATININE 0.8 mg/dL (0.5-0.9); ESTIMATED GFR > 60; GLUCOSE 144 mg/dL (70-104); POTASSIUM 3.7 mmol/L (3.5-5.1); SODIUM 138 mmol/L (136-145); TCO2 26 mmol/L (25-35)
[2018-10-12] MEDS ORDERED: SYNTHROID PO SCH (07:00)
[2018-10-12] MEDS: LEVEMIR SUBQ SCH (08:13)
[2018-10-12] MEDS: TRICOR PO SCH (08:15)
[2018-10-12] MEDS: BYSTOLIC PO SCH (08:15)
[2018-10-12] MEDS: GLUCOPHAGE PO SCH ×2 (08:15→17:19)
[2018-10-12] MEDS ORDERED: NORFLEX IM ONE (09:40)
[2018-10-12] MEDS ORDERED: SOLU-MEDROL IV ONE (09:42)
[2018-10-12] MEDS ORDERED: B & O 15A SUPP PR PRN (09:44)
--- NOTE | 2018-10-12 11:39 | Diag Imaging Result Doc PS360 ---
US SOFT TISSUE HEAD/NECK - 10/12/2018 INDICATION: assess thyroid and surrounding tissues TECHNIQUE: Ultrasound thyroid COMPARISON: 10/10/2018 FINDINGS: The thyroid is normal. The right lobe measures 2.5 x 1.1 cm. The left lobe measures 2.1 x 1 cm. There are some prominent supraclavicular lymph nodes bilaterally. These demonstrate a normal morphology with a preserved fatty hilum. These measure up to 9 x 4 mm on the right and 17 x 4 mm on the left. No cervical adenopathy. IMPRESSION: Normal thyroid. Prominent supraclavicular lymph nodes bilaterally. Electronically signed by Abiel Jimenez 10/12/2018 11:36 AM
[2018-10-12] MEDS: NS 1,000 ML IV SCH (11:58)
[2018-10-12] MEDS: HUMULIN R SUBQ SCH ×3 (11:58→22:19)
--- NOTE | 2018-10-12 15:08 | CONSULTATION ---
DATE OF CONSULTATION: 10/12/2018 CONSULTING PHYSICIAN: Dr. Casper. REASON FOR CONSULTATION: Urologic care of a patient who is well known to me. HISTORY OF PRESENT ILLNESS: A 78-year-old female who is well known to me secondary to bilateral ureteropelvic junction obstruction, chronic UTIs, numerous renal stones, history of gross hematuria. She has undergone left-sided repair and had a urinoma postoperatively which required admission to the hospital and drainage under radiologic guidance. She has recovered from that and is planning to have her right side treated with robotic pyeloplasty, as well as pyelolithotomy on 10/16/2018. In the meantime, she presented to the emergency room with 3-day history of neck pain to the point that she could not move her head. She is being worked up for that. In the interim, she had leukocytosis and urinalysis concerning for bacteria. She denies dysuria or gross hematuria. She denies significant flank pain. PAST MEDICAL HISTORY: Pulmonary embolism urolithiasis, ureteropelvic junction obstruction hypertension, hypothyroid, recurrent UTIs, gross hematuria, diabetes mellitus, hyperlipidemia. PAST SURGICAL HISTORY: Hysterectomy, partial colectomy, total hip arthroplasty, mid urethral sling, bilateral retrograde pyelograms, left robotic pyeloplasty and pyelolithotomy with stent placement. ALLERGIES: No known drug allergies. SOCIAL HISTORY: Denies tobacco, alcohol or illicit drug use. FAMILY HISTORY: Negative for malignancies. HOME MEDICATIONS: Bystolic, Tricor, Synthroid, Glucophage, Levemir, Zocor, amoxicillin, vitamin B 12 and Xarelto. REVIEW OF SYSTEMS: Reviewed and 12 systems negative, except for the HPI. PHYSICAL EXAMINATION: Vital Signs: Temperature 98 degrees, P 72, BP 179/68. General: No acute distress. HEENT: Normocephalic, atraumatic. Cardiovascular: Regular rhythm. Pulmonary: Bilateral breath sounds. Abdomen: Protuberant, nontender to palpation. Back: No CVA tenderness. Dermatologic: No obvious skin rashes. Neurologic: Alert and oriented x3. Psychiatric: Appropriate mood and affect. PERTINENT LABS: Her white cell count is 14,000, hematocrit 33, and creatinine is 0.8. Her urinalysis is positive for bacteria, white cells, red cells. PERTINENT IMAGES: None during this admission. ASSESSMENT: A 78-year-old female with right ureteropelvic junction obstruction and numerous right renal stones, history of gross hematuria and recurrent urinary tract infections. She is admitted for neck pain. I have discussed with the patient that I do not believe the neck pain is related in any form or fashion to her urologic health. She was initiated by me on potassium citrate 15 mEq twice a day a week ago, and I have discussed with the patient common side effects, neck pain not being 1 of them. We agreed that she could definitely hold the medication if she wanted and see if her neck pain improves, but again I have not seen people having neck pain after being initiated this medication in the past. She is wondering whether she can still proceed with her surgery on Sunday. I have discussed with her that it will be up to her. If she feels up to it, it would be reasonable to go ahead and correct her right ureteropelvic junction obstruction and remove the number of stones in order to eventually hopefully get her off the antibiotics and break the pattern of recurrent urinary tract infections. She voiced understanding. PLAN: 1. No urologic intervention needed during this hospitalization. 2. Dr. Luis and his team are following her for the UTIs and I certainly appreciate their help with antibiotic coverage. 3. The best way to address her UTIs in the future would be by definitive surgery for the ureteropelvic junction obstruction and stone removal, which we will plan on Sunday unless she feels worse or changes her mind. Thank you for the consultation. cc: Wai Monge MD
--- NOTE | 2018-10-12 16:17 | PROGRESS NOTE ---
DATE: 10/12/2018 SUBJECTIVE: The patient is resting comfortably. She continues to complain of neck pain and stiffness. OBJECTIVE: Vital Signs: Temperature 98 degrees, blood pressure 132/88, heart rate 73, respirations 21, O2 saturation 98% on room air. General: This is a morbidly obese female lying in bed in no acute distress. Heart: S1, S2 normal. Regular rate and rhythm. Lungs: Equal air entry bilaterally. No wheezing. No rales. No rhonchi. Abdomen: Positive bowel sounds. Soft, obese, nontender, nondistended. Extremities: No edema, no cyanosis. Neuro: The patient is alert oriented x4. LABS: White blood cell count 13, hemoglobin 10, hematocrit 32, platelets 445,000. Sodium 138, potassium 3.7, chloride 104, CO2 26, BUN 14, creatinine 0.8, glucose 144. ASSESSMENT AND PLAN: 1. Neck pain. We will start the patient on steroid therapy and monitor her response closely. The imaging did not revealing an obvious source of the patient's pain. 2. Recurrent UTI. Continue with antibiotic therapy as directed by Dr. Luis. 3. Multiple renal stones with a recent urinoma with CT-guided drainage status post pyeloplasty. Urology is following. 4. Diabetes mellitus type 2. Continue on Levemir, metformin and sliding scale insulin. 5. History of pulmonary embolism. Continue on Xarelto. 6. Morbid obesity. Aware. 7. Hypothyroidism. Continue on Synthroid. 8. Gastroesophageal reflux disease. Continue on Prilosec. 9. Leukocytosis. Slightly improved. Continue with antibiotic therapy. 10. Will consult physical therapy and occupational therapy. cc: Leann Casper MD [facility]
[2018-10-12] MEDS: XARELTO PO SCH (17:18)
[2018-10-12 17:43] LABS: URINE SOURCE CATH
[2018-10-12 17:48] LABS: BILIRUBIN URINE NEGATIVE (NEGATIVE); COLOR YELLOW; GLUCOSE URINE 500 mg/dL (NEGATIVE); KETONE URINE NEGATIVE (NEGATIVE); SP GRAVITY URINE 1.018; TURBIDITY URINE HAZY (CLEAR)
[2018-10-12 17:49] LABS: BLOOD URINE MODERATE (NEGATIVE); LEUKOCYTES URINE LARGE (NEGATIVE); NITRITE URINE NEGATIVE (NEGATIVE); PROTEIN URINE 30 mg/dL (NEGATIVE); UROBILINOGEN URINE NORMAL (NORMAL)
[2018-10-12 17:52] LABS: UR EPITHELIAL CELLS <10 /HPF (<10); URINE BACTERIA NEGATIVE /HPF; URINE RBC TNTC /HPF (<10); URINE WBC TNTC /HPF (<10)
[2018-10-12 18:08] LABS: URINE CASTS NONE SEEN; URINE CRYSTALS URIC ACID PRESENT; URINE SMALL ROUND CELLS RENAL PRESENT; URINE YEAST PRESENT
--- NOTE | 2018-10-12 19:57 | GASTROENTEROLOGY CONSULTATION ---
DATE: 10/12/2018 REQUESTING PHYSICIAN: Leann Casper MD PRIMARY CARE PHYSICIAN: Baljinder Patel MD REASON FOR CONSULTATION: Dysphagia, neck pain. HISTORY OF PRESENT ILLNESS: Ms. Richard is a 78-year-old female who was admitted on 10/10/2018 for neck pain. She had recent surgery on her left kidney for removal of stones. Since then she had problems and low back spasms, and now she started having pain in the neck, unable to move her neck. She also complains of intermittent trouble swallowing. She has had a colonoscopy done many years ago by Dr. Rollins. Prior to that, she has history of precancerous polyp which had required part of her colon removed, around 8 inches at [facility]. The patient has never had an EGD in the past. In the hospital she is currently being treated for a UTI, recurrent yeast infection and cervical paraspinal muscle spasms. Gastroenterology is consulted for dysphagia. The patient complains of some trouble swallowing foods, but denies any history of food impactions or previous dilations. PAST MEDICAL HISTORY: 1. Pulmonary embolism, chronic anticoagulation with Xarelto. 2. Recurrent UTIs with yeast. 3. Hypertension. 4. Hypothyroidism. 5. Bilateral kidney stones. 6. 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 7. Neck spasms and back spasms. PAST SURGICAL HISTORY: Recent left robotic-assisted laparoscopic pyeloplasty and pyelolithotomy; bladder sling; bilateral hip replacement; colon resection 15 years ago at [facility]; hysterectomy; colonoscopy many years ago with Dr. Rollins; drainage of urinoma. ALLERGIES: No known drug allergies. MEDICATIONS: In the hospital include clotrimazole vaginal cream; Flexeril; normal saline 75 mL/h; fenofibrate; Levemir; sliding scale regular insulin; levothyroxine; metformin; nebivolol; omeprazole 40 mg once a day; opium/belladonna 1 per rectal q.6 hours; prednisone 20 mg every day; Xarelto 20 mg every day; Zocor 40 mg once daily; Zosyn IV q.6 hours 3.375 g. REVIEW OF SYSTEMS: Denies any current fevers, rigors, chills, chest pain or shortness of breath. Denies any vomiting blood. Does complain of neck pain and spasm, some trouble swallowing. Complains of constipation. She complains of recurrent UTIs. She has some arthritis. She denies any neurologic complaints. PHYSICAL EXAMINATION: Temperature 98 degrees, pulse rate of 73, respiratory rate 29, blood pressure 132/88, saturating 98% on room air. Body weight of 193 pounds. BMI 31.2 kg/m2. Generally the patient is moderately built, lying in bed, in no acute distress.HEENT: Pale conjunctivae. No icterus. Pupils equal and reactive to light. Neck is supple. Abdomen is protuberant, soft, nondistended. Nontender. No guarding or rebound. She has a healing scar jen from recent surgery. Extremities: No cyanosis or clubbing. Neurologic-davalos she is alert, awake and oriented x3. LABORATORY DATA: Hemoglobin and hematocrit are 10.2 and 32.9, white count of 13.67, platelet count of 445,000. Sodium 138, potassium 3.7, chloride 104, bicarbonate of 26, BUN of 14, creatinine of 0.8, glucose of 144, calcium 9.1. CRP 147.92. TSH 0.48, free T4 is 1.48. AST 12, ALT 8, alkaline phosphatase 99, total protein 6.9, albumin of 3.9, total bilirubin is 0.5. Urinalysis showing positive protein, positive glucose, moderate blood, positive white cells. Urine culture is currently pending. Prior urine culture showing no growth. Blood culture x2 negative at 48 hours from 10/10/2018. DIAGNOSTIC DATA: 1. Head and neck ultrasound showed normal thyroid, prominent supraclavicular lymph nodes bilaterally. 2. CT of the cervical spine showed substantial multilevel degenerative disk and degenerative facet disease, multilevel degenerative neural foraminal narrowing noted. IMPRESSION AND PLAN: 1. Neck pain, likely secondary to arthritis. Primary care team is following that. The patient was started on oral prednisone to help relieve the neck pain. 2. Dysphagia. We will request a barium swallow on Sunday. She is on Xarelto. In order to pursue any kind of endoscopy, she has to be off Xarelto for 2-3 days. The patient is scheduled for renal stone surgery on Sunday with Dr. Monge. Hopefully we can do esophagogastroduodenoscopy likely on Sunday if she is still inpatient. 3. Recurrent urinary tract infections. This is being followed by Dr. Luis and Dr. Monge. The etiology of that was believed to be multiple kidney stones. 4. Type 2 diabetes. She is on Levemir, metformin and sliding scale insulin. 5. History of pulmonary embolism. She is on Xarelto, which we need to hold Xarelto for 2-3 days before proceeding with esophagogastroduodenoscopy. We will first do barium swallow evaluation on Sunday. 6. Obesity. The patient will need to lose weight. Currently she is recovering from renal surgery and has neck and back arthritis. 7. Hypothyroidism. Continue Synthroid. 8. Gastroesophageal reflux disease. She is on Prilosec, which she will continue as before. 9. Leukocytosis. She is on antibiotics. 10. Constipation. We will start her on MiraLAX once daily. We may have to reduce the use of anticholinergic and narcotic combination in the form of opium/belladonna suppository, as it could be contributing to constipation. The above plan was discussed with the patient and all questions were answered. Please order a barium swallow study for Sunday morning, and we will follow that and go from there. Please call us with any further questions. cc: MD Baljinder Moreland MD Katherine Takundwa, MD MTDD
[2018-10-12] MEDS: ZOCOR PO SCH (22:18)
[2018-10-12] MEDS: GYNE-LOTRIMIN VAGINAL CREAM VAG SCH (22:19)
[2018-10-12] MEDS: FLEXERIL PO SCH (22:19)
[2018-10-13] MEDS: ZOSYN 3.375 GM in NS 50 ML IV SCH ×5 (02:35→19:59)
[2018-10-13] MEDS: NS 1,000 ML IV SCH (02:35)
[2018-10-13] MEDS: HUMULIN R SUBQ SCH ×4 (06:11→20:00)
[2018-10-13 06:13] LABS: HEMOGLOBIN 9.3 g/dL (12.0-16.0); MCH 27.8 PG (27-31); MCV 89.6 FL (81-99); MPV 10.6 FL (7.4-10.4); RBC 3.35 XMIL (4.2-5.4); RDW 13.5 % (11.5-14.5); WBC 15.39 X1000 (4.8-10.8)
[2018-10-13] MEDS: FLEXERIL PO SCH ×3 (06:35→19:59)
[2018-10-13] MEDS: SYNTHROID PO SCH (06:35)
[2018-10-13] MEDS: PRILOSEC PO SCH (06:35)
[2018-10-13 06:56] LABS: AGAP 12; BUN 16 mg/dL (8-22); CALCIUM 8.6 mg/dL (8.8-10.2); CHLORIDE 108 mmol/L (98-107); COSMO 284; GLUCOSE 125 mg/dL (70-104); POTASSIUM 3.9 mmol/L (3.5-5.1); SODIUM 141 mmol/L (136-145); TCO2 21 mmol/L (25-35)
[2018-10-13 07:13] LABS: CREATININE 0.6 mg/dL (0.5-0.9); ESTIMATED GFR > 60
[2018-10-13] MEDS: GLUCOPHAGE PO SCH ×2 (07:49→16:53)
[2018-10-13] MEDS: TRICOR PO SCH ×2 (07:50→11:11)
[2018-10-13] MEDS: LEVEMIR SUBQ SCH ×2 (07:50→11:10)
[2018-10-13] MEDS: BYSTOLIC PO SCH ×2 (07:50→11:09)
[2018-10-13] MEDS: PREDNISONE PO SCH ×2 (07:50→11:11)
[2018-10-13 10:42] LABS: IRON SATURATION 28 %; TIBC 198 ug/dL; TOTAL IRON 56 ug/dL (49-151); UNBOUND IRON 142 ug/dL (112-346)
--- NOTE | 2018-10-13 11:07 | PROGRESS NOTE ---
DATE: 10/13/2018 SUBJECTIVE: The patient states she feels a lot better today. She is able to move her neck without any difficulty and she reports that she had a bowel movement. OBJECTIVE: Vital Signs: Temperature 98 degrees, blood pressure 150/55, heart rate 65, respirations 20, O2 saturation is 99% on room air. Intake 480, output 1.7. General: This is a morbidly obese female lying in bed, in no acute distress. Heart: S1, S2 normal. Regular rate and rhythm. Lungs: Equal air entry bilaterally. No wheezing. No rales. No rhonchi. Abdomen: Positive bowel sounds. Soft, nontender, nondistended. Extremities: No edema. No cyanosis. Neurologic: The patient is alert and oriented x4. Labs: White blood cell count 15, hemoglobin 9.3, hematocrit 30, platelets 485,000. Sodium 141, potassium 3.9, chloride 108, CO2 of 21, BUN 16, creatinine 0.6, glucose 125. ASSESSMENT AND PLAN: 1. Neck pain. Improved. We will continue with tapering steroid dosage. 2. Recurrent urinary tract infection. Continue on the current antibiotic regimen as directed by Dr. Luis. 3. Multiple renal stones with a history of a recent urinoma, status post pyeloplasty. The patient is scheduled to undergo a urologic procedure on Sunday. Further recommendations as per Dr. Monge. 4. Diabetes mellitus type 2. Continue on Levemir, metformin, and sliding scale insulin. 5. History of pulmonary embolism. The patient is now on lovenox. 6. Antiphospholipid syndrome. The patient will need to be placed on lovenox to bridge since the Xarelto will be held for 2 days prior to the procedure. 7. Morbid obesity. Aware. 8. Hypothyroidism. Continue on Synthroid. 9. Gastroesophageal reflux disease. Continue on Prilosec. 10. Leukocytosis. Unchanged. Continue with antibiotic therapy. 11. We will consult physical therapy and occupational therapy. cc: Leann Casper MD MTDD
[2018-10-13] MEDS: COLACE PO SCH (11:09)
[2018-10-13] MEDS: LACTULOSE PO SCH ×2 (11:10→19:59)
[2018-10-13] MEDS: MIRALAX PO SCH (11:11)
[2018-10-13 11:12] LABS: FERRITIN 1657 ng/mL (13-150)
[2018-10-13] MEDS: XARELTO PO SCH (16:53)
--- NOTE | 2018-10-13 17:31 | GASTROENTEROLOGY PROGRESS NOTE ---
DATE: 10/12/2018 SUBJECTIVE: The patient is resting in bed. Her is present at bedside. The patient is feeling better. She is eating better. She ate 75% of meal for breakfast this morning. She has not had a bowel movement today but yesterday, she had a bowel movement. Denies any nausea, vomiting, any fevers, rigors or chills. Her neck pain is improved. Vital signs: Temperature 97.8 degrees, pulse of 69, respiratory rate 18, blood pressure 164/60, saturating 98% on nasal cannula. Body weight of 193 pounds. BMI 31.2 kg/m2. General Appearance: Obese, lying in bed, in no acute distress. HEENT: Pale conjunctivae. No icterus. Neck: Supple. Abdomen: Obese soft, nontender, nondistended. No guarding. Extremities: No cyanosis, clubbing. Neurologic: She is alert, awake, oriented. LABS: Hemoglobin and hematocrit is 9.3 and 30, white count of 15.39, platelet count of 485,000. Sodium 141, potassium 3.9, chloride 108, bicarb 21, anion gap 12, BUN of 16, creatinine 0.6, glucose of 125, calcium is 8.6, iron percentage of 28, ferritin of 1657, iron level of 56. Liver enzymes are normal. On 10/08/2018 her B12 was 1019, Folate of 32.7. Urine culture from 10/12 showing no growth. Blood culture x2 from 10/10/2018 no growth. IMPRESSION AND PLAN: 1. Neck pain is secondary to arthritis. She is improving with oral prednisone taper per Dr. Casper. 2. Dysphagia is improved. We will do a barium swallow and upper GI tomorrow. She is on Xarelto. She is going to discontinue Xarelto on Sunday in order prepare for her kidney surgery with Dr. Monge on Sunday. We will review the results of the barium swallow and then decide if she needs to have EGD in near future. 3. Recurrent urinary tract infections. This is being followed Dr. Monge and Dr. Luis. The etiology is believed to be multiple kidney stones. 4. Type 2 diabetes. She is on Levemir and metformin sliding-scale insulin. 5. History of pulmonary embolism. She has a history of antiphospholipid syndrome. She is on Xarelto for that. 6. Hypothyroidism. She is on Synthroid. 7. Obesity. The patient will need to lose weight. I think this will be addressed at a later date once she recovers from the current presentation of neck pain, urinary tract infection and kidney stones. 8. Reflux disease. She is on Prilosec. She will continue as before. 9. Leukocytosis. Continue to follow up with the primary team. 10. Constipation. We will keep her on Alexandra-Colace once daily and she can use MiraLAX or lactulose as needed. We will follow along. The above plans were discussed with the patient and the family at bedside. All questions answered. Please call us with any further questions. cc: MD Baljinder Moreland MD MTDD
--- NOTE | 2018-10-13 19:10 | PROGRESS NOTE ---
DATE: 10/13/2018 Ms. Richard reports she has done better on steroids. Her neck pain has improved. She denies flank pain. She reports she was informed by Dr. Marr that she has antiphospholipid antibody syndrome. T 97.8 degrees, P 69, BP 164/66.General: No acute distress. Abdomen: Soft, nontender, nondistended. Back: No CVA tenderness. : Bladder is nontender to palpation. Alberto catheter in place draining straw-colored urine. PERTINENT LAB: White cell count is 15,000, creatinine 0.6, her final urine culture from 10/10/2018 showed no pathogenic growth. ASSESSMENT/PLAN: 78-year-old female with urolithiasis, recurrent urinary tract infections, ureteropelvic junction obstruction who is scheduled for right robotic-assisted laparoscopic pyeloplasty and pyelolithotomy with stent placement on 10/16/2018. She is under impression that she will stay in the hospital throughout her surgery. She had asked me about her blood thinners and obviously we have to hold her Xarelto but I have no problems with keeping her on therapeutic Lovenox bridge until the day of surgery. PLAN: 1. Hold Xarelto. 2. Place on therapeutic Lovenox and hold it on the day of surgery. 3. Will follow. cc: Wai Monge MD
[2018-10-13] MEDS: GYNE-LOTRIMIN VAGINAL CREAM VAG SCH (20:00)
[2018-10-13] MEDS: ZOCOR PO SCH (20:00)
[2018-10-14] MEDS: LOVENOX SUBQ SCH ×2 (00:40→12:10)
[2018-10-14] MEDS: FLEXERIL PO SCH ×3 (04:54→20:06)
[2018-10-14] MEDS: ZOSYN 3.375 GM in NS 50 ML IV SCH ×2 (04:54→09:45)
[2018-10-14] MEDS: HUMULIN R SUBQ SCH ×4 (06:04→22:48)
[2018-10-14] MEDS: PRILOSEC PO SCH (06:05)
[2018-10-14] MEDS: SYNTHROID PO SCH (06:05)
[2018-10-14 06:54] LABS: AGAP 12; BUN 20 mg/dL (8-22); CALCIUM 9.1 mg/dL (8.8-10.2); CHLORIDE 104 mmol/L (98-107); COSMO 283; CREATININE 0.7 mg/dL (0.5-0.9); ESTIMATED GFR > 60; GLUCOSE 110 mg/dL (70-104); RBC 3.82 XMIL (4.2-5.4); SODIUM 140 mmol/L (136-145); TCO2 24 mmol/L (25-35); WBC 15.11 X1000 (4.8-10.8)
[2018-10-14 06:55] LABS: MCH 28.8 PG (27-31); MCHC 31.4 g/dL (33-37); MCV 91.6 FL (81-99); MPV 10.6 FL (7.4-10.4); RDW 13.7 % (11.5-14.5)
[2018-10-14] MEDS: LACTULOSE PO SCH ×2 (09:40→20:13)
[2018-10-14] MEDS: COLACE PO SCH (09:43)
[2018-10-14] MEDS: BYSTOLIC PO SCH (09:44)
[2018-10-14] MEDS: GLUCOPHAGE PO SCH ×2 (09:44→17:50)
[2018-10-14] MEDS: LEVEMIR SUBQ SCH (09:44)
[2018-10-14] MEDS: MIRALAX PO SCH (09:45)
[2018-10-14] MEDS: PREDNISONE PO SCH (09:45)
[2018-10-14] MEDS: TRICOR PO SCH (09:46)
--- NOTE | 2018-10-14 10:04 | Diag Imaging Result Doc PS360 ---
EXAM: BA SWALLOW-ESOPHAGUS 10/14/2018 HISTORY: Dysphagia and neck pain TECHNIQUE: Air contrast barium swallow with rapid sequence imaging of the upper esophagus and pharynx, 36 images, two minutes 36 seconds fluoroscopy time, 1871.9 cGy. COMMENT: The patient is able to swallow barium without much difficulty however there is some delay of passage of barium into the stomach largely due to extensive tertiary contractions and poor peristalsis in the lower two thirds of the esophagus. There is no evidence of hiatal hernia or reflux and no mucosal ulceration or fixed intraluminal filling defect is present. 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 There is a small lateral pharyngocele on the right. IMPRESSION: Presbyesophagus and mild cricopharyngeal achalasia. Electronically signed by Raúl Coburn 10/14/2018 9:32 AM
--- NOTE | 2018-10-14 11:28 | GASTROENTEROLOGY PROGRESS NOTE ---
DATE: 10/14/2018 SUBJECTIVE: The patient just came from a barium swallow study. I have reviewed the results of the barium swallow study showing evidence of some delay in the passage of barium into the stomach, largely due to extensive tertiary contractions and poor peristalsis in the lower 2/3 of the esophagus. There was no evidence of any hiatal hernia or reflux. No mucosal ulceration or fixed intraluminal filling defect is present. 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 There is a small lateral pharyngocele on the right. The patient is feeling better. Her neck pain is improved. She will be started back on her diet. PHYSICAL EXAMINATION: Vital Signs: Temperature 98.1 degrees, pulse rate of 73, respiratory rate of 20, blood pressure 192/77, saturating 99% on room air. Body weight of 193 pounds. BMI of 31.2 kg/m2. General Appearance: Moderately-built, moderately-nourished, lying in bed, in no acute distress. HEENT: Mild pallor. No icterus. Neck: Supple. Abdomen: Soft, nontender, nondistended. No guarding or rebound. Extremities: No cyanosis, clubbing. Neurologic: She is alert, awake, oriented x3. LABS: Hemoglobin and hematocrit are 11 and 35, white count of 15.1, platelet count of 542,000. Sodium of 140, potassium 4, chloride 104, bicarb 24, anion gap 12, BUN of 20, creatinine 0.7, glucose of 118, calcium is 9.1. B12 of 1019, folate of 32.7. Urine culture showing yeast. Barium swallow, x-ray as mentioned in the HPI. IMPRESSION AND PLAN: 1. Dysphagia, is improved. We will continue to follow. The patient is being scheduled for a right robotic-assisted laparoscopic pyeloplasty and pyelolithotomy with stent placement on 10/16/[address] Monge. Her Xarelto has been withheld. She is being placed on therapeutic Lovenox per the primary care team so we will be holding for any kind of endoscopic intervention at this time. Once the patient recovers from the above urological procedure, then she will follow up in the clinic 6 weeks after discharge. At that time, we might reconsider doing an esophagogastroduodenoscopy for workup of dysphagia. 2. Mild anemia. Continue to watch. 3. Neck pain secondary to arthritis, being managed the primary care team. She is on a renal dose of oral prednisone. 4. Recurrent urinary tract infection, being followed by Dr. Luis and Dr. Monge. 5. Type 2 diabetes. She is on Levemir, metformin, sliding scale. 6. History of pulmonary embolism and history of antiphospholipid syndrome. She has been on Xarelto, which has been held. She will be replaced with Lovenox therapeutic dosing which will be managed by the primary care team. 7. Hypothyroidism. She is on Synthroid. 8. The patient will need to lose weight. She will need to get more active which will be after the surgery. 9. Reflux disease. She is on Prilosec. Continue once daily. 10. Leukocytosis, is being managed by the primary care team. 11. Constipation. She is on Alexandra-Colace once daily and she can use MiraLAX or lactulose as needed. 12. We will follow along. The above plans were discussed with the patient and all questions were answered. Please call us with any further questions. cc: MD Baljinder Moreland MD MTDD
[2018-10-14] MEDS: MYCAMINE 100 MG in NS 100 ML IV SCH (12:10)
--- NOTE | 2018-10-14 17:11 | PROGRESS NOTE ---
DATE: 10/14/2018 SUBJECTIVE: The patient is sitting in a chair. She states that she feels better today. No acute events noted overnight. OBJECTIVE: Vital Signs: Temperature 98 degrees, blood pressure 150/70, heart rate 75, respirations 19, O2 saturation is 97% on room air. General: This is a morbidly obese female, sitting up in a chair, in no acute distress. Heart: S1, S2 normal. Regular rate and rhythm. Lungs: Equal air entry bilaterally. No wheezing. No rales. No rhonchi. Abdomen: Positive bowel sounds. Soft, nontender, nondistended. Extremities: Have 1+ edema bilaterally. Neurologic: The patient is alert and oriented x4. LABS: White blood cell count 15, hemoglobin 11, hematocrit 35, platelets 542,000. Sodium 140, BUN 20, creatinine 0.7, glucose 110. ASSESSMENT AND PLAN: 1. Lower neck pain. Improved. Will continue on steroid taper. 2. Recurrent urinary tract infection. The urine culture is growing yeast. The patient is now on amoxicillin and micafungin. 3. Multiple renal stones with a history of recent urinoma status post pyeloplasty. Management as per Dr. Monge. A procedure is planned for Sunday. 4. Diabetes mellitus type 2. Continue on the current insulin regimen. 5. History of pulmonary embolism. The patient is currently on Lovenox. 6. Antiphospholipid syndrome. Continue on Lovenox. 7. Morbid obesity. Aware. 8. Hypothyroidism. Continue on Synthroid. 9. Leukocytosis. Unchanged. 10. Gastroesophageal reflux disease. Continue on Prilosec. 11. Continue with physical therapy and occupational therapy. cc: Leann Casper MD [facility]
--- NOTE | 2018-10-14 17:47 | INFECTIOUS DISEASE PROGRESS NO ---
DATE: 10/14/2018 PRESENT ILLNESS: The patient has had 2 recent urinary tract infections, 1 was with Enterococcus and most recently she has been found to have yeast in her urine. MEDICATIONS: The patient had been taking amoxicillin at home for the enterococcal infection. She in the hospital was put on Zosyn, micafungin and vancomycin when she first came in because it was felt she may have had some type of systemic infection. As it turns out, there is not such an infection. PHYSICAL EXAMINATION: Vital Signs: Temperature is 98.2 degrees, pulse 75, respirations 22, blood pressure 118/78. General: This is a chronically ill-appearing, elderly female. She is obese. Head/eyes/ears/nose/throat: She can hear my spoken words and see near objects. She does not have any evidence of yeast in her mouth. Neck: No meningismus and she does not have pain when she moves her neck unlike when she came in the hospital. Lungs: Clear to auscultation. Cardiovascular: Heart rate is regular. Abdomen: Soft and nontender. Neurologic: Patient is alert. She can move her extremities. There is no tremor. LAB AND X-RAY: Patient's most recent urine culture grew yeast. Before that, she grew Enterococcus[place] [address], hemoglobin 11 and platelet count 542,000 creatinine is 0.7, GFR is greater than 60. The patient had a barium swallow today which showed the patient had has presbyesophagus and mild cricopharyngeal achalasia. ASSESSMENT AND PLAN: The patient previously had urinary tract infection with Enterococcus and now has 1 with yeast. She seems to be asymptomatic but the patient does have a calculi which could be infected with either of both of those organisms. Either tomorrow or the next day, she is going to be undergoing a urologic procedure and I have ordered that the patient get micafungin IV and amoxicillin p.o. in order to prevent any systemic spread of the infection while the patient is having surgery on the urinary tract. COMORBIDITIES: The patient is elderly. She has multiple renal calculi and a history of recurrent urinary tract infections. cc: Konrad Luis MD
[2018-10-14] MEDS: ZOCOR PO SCH (20:06)
[2018-10-14] MEDS: GYNE-LOTRIMIN VAGINAL CREAM VAG SCH (20:07)
[2018-10-14] MEDS: AMOXIL PO SCH (22:47)
[2018-10-15] MEDS: LOVENOX SUBQ SCH ×2 (01:10→15:13)
[2018-10-15] MEDS: AMOXIL PO SCH ×3 (05:37→21:49)
[2018-10-15] MEDS: FLEXERIL PO SCH ×3 (05:40→21:49)
[2018-10-15] MEDS: PRILOSEC PO SCH (06:01)
[2018-10-15] MEDS: SYNTHROID PO SCH (06:03)
[2018-10-15] MEDS: HUMULIN R SUBQ SCH ×3 (06:03→18:38)
[2018-10-15 06:35] LABS: BASO# 0.05 X1000 (0.0-0.2); BASO% 0.3 % (0.0-0.8); EOS# 0.36 X1000 (0.0-0.7); HEMATOCRIT 34.6 % (37.0-47.0); HEMOGLOBIN 10.9 g/dL (12.0-16.0); IMM GRAN# 0.12 X1000 (0.0-0.04); IMM GRAN% 0.7 % (0.0-0.5); LYMPH# 3.81 X1000 (1.2-3.4); LYMPH% 21.2 % (20.5-51.1); MCH 28.4 PG (27-31); MCHC 31.5 g/dL (33-37); MCV 90.1 FL (81-99); MONO# 1.05 X1000 (0.11-0.59); MONO% 5.8 % (1.7-9.3); MPV 10.4 FL (7.4-10.4); NEUT# 12.57 X1000 (1.4-6.5); PLT 549 X1000 (130-400); RBC 3.84 XMIL (4.2-5.4); RDW 13.5 % (11.5-14.5); WBC 17.96 X1000 (4.8-10.8)
[2018-10-15 07:05] LABS: AGAP 13; BUN 23 mg/dL (8-22); CALCIUM 9.4 mg/dL (8.8-10.2); CHLORIDE 102 mmol/L (98-107); COSMO 282; CREATININE 0.7 mg/dL (0.5-0.9); ESTIMATED GFR > 60; GLUCOSE 84 mg/dL (70-104); POTASSIUM 3.9 mmol/L (3.5-5.1); SODIUM 140 mmol/L (136-145); TCO2 25 mmol/L (25-35)
[2018-10-15] MEDS: GLUCOPHAGE PO SCH ×2 (08:18→18:43)
[2018-10-15] MEDS: BYSTOLIC PO SCH (08:18)
[2018-10-15] MEDS: PREDNISONE PO SCH (08:18)
[2018-10-15] MEDS: TRICOR PO SCH (08:19)
[2018-10-15] MEDS: LEVEMIR SUBQ SCH (08:54)
[2018-10-15] MEDS: MYCAMINE 100 MG in NS 100 ML IV SCH (11:01)
--- NOTE | 2018-10-15 13:04 | PROGRESS NOTE ---
DATE: 10/15/2018 SUBJECTIVE: The patient is resting comfortably in bed. She has no complaints at this time. OBJECTIVE: Vital Signs: Temperature 97.9 degrees, blood pressure 171/69, heart rate 65, respirations 16, O2 saturation 99% on room air. General: This is a morbidly obese female lying in bed in no acute distress. Heart: S1, S2 normal. Regular rate and rhythm. Lungs: Equal air entry bilaterally. No wheezing. No rales. No rhonchi. Abdomen: Positive bowel sounds. Soft, nontender, nondistended. Extremities: Trace pedal edema. No cyanosis. No calf tenderness. Neurologic: The patient is alert and oriented x3. LABS: White blood cell count 17, hemoglobin 10, hematocrit 34, platelets 549,000. Sodium 140, potassium 3.9, chloride 102, CO2 25, BUN 23, creatinine 0.7, glucose 84. ASSESSMENT AND PLAN: 1. Neck pain. Improved. 2. Recurrent urinary tract infection. Continue on micafungin and amoxicillin. 3. Multiple renal stones with a history of recent urinoma status post pyeloplasty. The patient is scheduled to undergo urologic procedure tomorrow. 4. Diabetes mellitus type 2. Continue on the current insulin regimen. 5. History of pulmonary embolism. We will hold the patient's Lovenox dosage for this evening. 6. Antiphospholipid syndrome. The patient is on Lovenox, however, that will be held this evening. 7. Morbid obesity. Aware. 8. Achalasia. Aware. Follow up with GI as outpatient. 9. Hypothyroidism. Continue on Synthroid. 10. Gastroesophageal reflux disease. Continue on Prilosec. 11. Steroid induced leukocytosis. We will discontinue the prednisone. 12. Continue with physical therapy and occupational therapy. cc: Leann Casper MD [facility]
[2018-10-15] MEDS: COLACE PO SCH (18:37)
[2018-10-15] MEDS: MIRALAX PO SCH (18:38)
[2018-10-15] MEDS: LACTULOSE PO SCH (18:39)
[2018-10-15] MEDS: ZOCOR PO SCH (21:49)
[2018-10-15] MEDS: COREG PO SCH (21:49)
[2018-10-16] MEDS: HUMULIN R SUBQ SCH ×5 (00:17→21:32)
[2018-10-16] MEDS: GYNE-LOTRIMIN VAGINAL CREAM VAG SCH ×2 (00:17→20:10)
[2018-10-16] MEDS: FLEXERIL PO SCH ×3 (05:20→20:08)
[2018-10-16] MEDS: AMOXIL PO SCH ×3 (05:21→21:49)
[2018-10-16] MEDS: PRILOSEC PO SCH (06:03)
[2018-10-16] MEDS: SYNTHROID PO SCH (06:04)
[2018-10-16 06:09] LABS: BASO# 0.04 X1000 (0.0-0.2); BASO% 0.2 % (0.0-0.8); EOS# 0.29 X1000 (0.0-0.7); EOS% 1.8 % (0.0-10.0); HEMATOCRIT 37.5 % (37.0-47.0); HEMOGLOBIN 11.8 g/dL (12.0-16.0); IMM GRAN# 0.25 X1000 (0.0-0.04); IMM GRAN% 1.6 % (0.0-0.5); LYMPH# 3.51 X1000 (1.2-3.4); LYMPH% 21.9 % (20.5-51.1); MCH 28.2 PG (27-31); MCHC 31.5 g/dL (33-37); MCV 89.5 FL (81-99); MONO# 0.99 X1000 (0.11-0.59); MONO% 6.2 % (1.7-9.3); MPV 10.3 FL (7.4-10.4); NEUT# 10.96 X1000 (1.4-6.5); NEUT% 68.3 % (42.2-75.2); PLT 594 X1000 (130-400); RBC 4.19 XMIL (4.2-5.4); RDW 13.5 % (11.5-14.5); WBC 16.04 X1000 (4.8-10.8)
[2018-10-16] MEDS ORDERED: LR 1,000 ML ONE (06:29)
[2018-10-16] MEDS ORDERED: SENSORCAINE 0.25%/EPI 1:200,000 ONE (06:29)
[2018-10-16 06:31] LABS: AGAP 13; BUN 23 mg/dL (8-22); CALCIUM 9.7 mg/dL (8.8-10.2); CHLORIDE 101 mmol/L (98-107); COSMO 284; CREATININE 0.8 mg/dL (0.5-0.9); ESTIMATED GFR > 60; GLUCOSE 120 mg/dL (70-104); SODIUM 140 mmol/L (136-145); TCO2 26 mmol/L (25-35)
[2018-10-16] MEDS ORDERED: KEFZOL 2 GM/D5W 2 GM/50 ML IVPB ONE (06:49)
[2018-10-16] MEDS: GLUCOPHAGE PO SCH ×2 (12:00→18:45)
[2018-10-16] MEDS: TRICOR PO SCH (12:00)
[2018-10-16] MEDS: COLACE PO SCH ×2 (12:01→20:08)
[2018-10-16] MEDS: COREG PO SCH ×2 (12:01→20:09)
[2018-10-16] MEDS: LEVEMIR SUBQ SCH (12:01)
[2018-10-16] MEDS: MIRALAX PO SCH ×2 (12:01→20:09)
[2018-10-16] MEDS: NS 1,000 ML IV SCH (12:02)
[2018-10-16] MEDS: MYCAMINE 100 MG in NS 100 ML IV SCH (12:02)
[2018-10-16] MEDS ORDERED: DITROPAN PO PRN (12:15)
[2018-10-16] MEDS ORDERED: OXY IR PO PRN ×2 (12:15)
[2018-10-16] MEDS ORDERED: NORCO-7.5 PO PRN (12:15)
[2018-10-16] MEDS ORDERED: NORCO-10 PO PRN (12:15)
[2018-10-16] MEDS ORDERED: NORCO-5 PO PRN (12:15)
[2018-10-16] MEDS ORDERED: LABETALOL IV PRN (12:15)
[2018-10-16] MEDS ORDERED: XARELTO PO SCH (13:59)
--- NOTE | 2018-10-16 14:58 | PROGRESS NOTE ---
DATE: 10/16/2018 SUBJECTIVE: The patient just returned from her urologic procedure. She is resting. OBJECTIVE: Vital Signs: Temperature 98.6 degrees, blood pressure 152/70, heart rate 81, respirations 17, O2 saturation 95% on 2 L nasal cannula. General: This is an elderly female, lying in bed in no acute distress. Heart: S1, S2 normal. Regular rate and rhythm. Lungs: Equal air entry bilaterally. No wheezing. No rales. No rhonchi. Abdomen: Positive bowel sounds. Soft, nontender, nondistended. Extremities: Trace pedal edema. No cyanosis. No calf tenderness. Neurologic: The patient is alert and oriented x4. LABORATORY DATA: White blood cell count 16, hemoglobin 11, hematocrit 37, platelets 594,000. Sodium 140, potassium 4, chloride 101, CO2 of 26, BUN 23, creatinine 0.8, glucose 120. ASSESSMENT AND PLAN: 1. Recurrent urinary tract infection secondary to Enterococcus and yeast. Continue on micafungin and amoxicillin as directed by . 2. Status post cystoscopy with pyeloplasty. Management as per Dr. Monge. 3. Diabetes mellitus type 2. Continue on Levemir and sliding scale insulin. 4. Antiphospholipid syndrome. Restart lovenox tomorrow. 5. Morbid obesity. Aware. 6. Achalasia. Aware. The patient will follow up with Gastroenterology as outpatient. 7. Hypothyroidism. Continue on Synthroid. 8. Steroid-induced leukocytosis. Improved. 9. Neck strain. Resolved. 10. Hypertension. Continue on the current antihypertensive regimen. 11. Gastroesophageal reflux disease. Continue on Prilosec. 12. Chronic constipation. Continue on MiraLAX and Colace. Disposition: Continue with PT. D/C home with home health once ok with . cc: MD ALYX Medel
[2018-10-16] MEDS: MORPHINE IV PRN (19:41)
[2018-10-16] MEDS: ZOCOR PO SCH (20:09)
--- NOTE | 2018-10-16 20:47 | INFECTIOUS DISEASE PROGRESS NO ---
DATE: 10/16/2018 PRESENT ILLNESS: Ms. Richard is being treated for recent urinary tract infections with Enterococcus and yeast in her urine. She is status post laparoscopic right kidney surgery with numerous renal stones and a BEN placement. MEDICATIONS: She is receiving amoxicillin 500 mg by mouth every 8 hours and micafungin 100 mg IV daily. PHYSICAL EXAMINATION: Vital Signs: Temperature is 98.6 degrees, pulse rate 81, respiratory rate 17, blood pressure 152/70, O2 saturation is 98% on 2 L nasal cannula. General: This is a chronically ill-appearing, elderly female. She is lying in the bed, currently in mild distress due to abdominal pain. She has recently returned from surgery. HEENT: Atraumatic, normocephalic. Oral mucous membranes are pink and dry. Conjunctivae are pink. Neck: Supple. Trachea is midline. Cardiovascular: Heart rate is regular. Respiratory: Lung sounds are clear in the upper lobes, diminished in the mid and bases. Excursion is shallow. Abdomen: Soft, obese, and very tender to light touch. There are multiple laparoscopic incisions open to air without any drainage or edema noted. There is a BEN drain to the right upper quadrant area. There is a dressing over the site and the drain has some sanguineous fluid in the bulb. Neurologic: She is awake, alert, and oriented. Somewhat limited mobility at this time due to her pain. LABORATORY AND X-RAY: Today, her white count is 16.04, hemoglobin 11.8, platelet count 594,000. Creatinine is 0.8. Estimated GFR is greater than 60. No imaging reports today. ASSESSMENT AND PLAN: Ms. Richard is being treated for urinary tract infections with Enterococcus and yeast which have grown in the past. She had previously had renal calculi removed from the left kidney, and today has had numerous removed from the right side. For now, we will continue the amoxicillin and micafungin as ordered, in order to prevent any systemic spread of infection. She has also had vaginal yeast and we will most likely continue the Gyne-Lotrimin as long as she is on the antibiotics and probably a few days thereafter. We should hopefully be able to stop the intravenous micafungin once she has recovered from the surgery. I have talked to the patient about the importance of coughing and deep breathing in order to prevent pneumonia. She has incentive spirometer at bedside and I have encouraged her to use that, and her family will assist. These plans have been discussed with and recommended by Dr. Luis. COMORBIDITIES: for Ms. Richard include that she is elderly with pulmonary embolus, on chronic anticoagulation, recurrent urinary tract infections, and multiple recent hospitalizations with deconditioning. Dictated by JASON Jewell for Konrad Luis MD cc: Konrad Luis MD [facility]
[2018-10-16] MEDS ORDERED: COLACE PO SCH (21:00)
[2018-10-17] MEDS: NS 1,000 ML IV SCH ×2 (04:25→17:38)
[2018-10-17] MEDS: AMOXIL PO SCH (06:06)
[2018-10-17] MEDS: SYNTHROID PO SCH (06:06)
[2018-10-17] MEDS: PRILOSEC PO SCH (06:07)
[2018-10-17] MEDS: FLEXERIL PO SCH (06:07)
[2018-10-17] MEDS: HUMULIN R SUBQ SCH ×4 (07:15→20:20)
[2018-10-17 07:16] LABS: BASO# 0.03 X1000 (0.0-0.2); BASO% 0.1 % (0.0-0.8); EOS% 0.3 % (0.0-10.0); HEMATOCRIT 35.3 % (37.0-47.0); HEMOGLOBIN 11.1 g/dL (12.0-16.0); IMM GRAN# 0.18 X1000 (0.0-0.04); IMM GRAN% 0.5 % (0.0-0.5); LYMPH# 1.66 X1000 (1.2-3.4); MCH 28.5 PG (27-31); MCHC 31.4 g/dL (33-37); MCV 90.5 FL (81-99); MONO# 0.55 X1000 (0.11-0.59); MONO% 1.7 % (1.7-9.3); MPV 10.2 FL (7.4-10.4); NEUT# 30.49 X1000 (1.4-6.5); NEUT% 92.4 % (42.2-75.2); PLT 585 X1000 (130-400); RDW 13.7 % (11.5-14.5); WBC 33.01 X1000 (4.8-10.8)
[2018-10-17 07:25] LABS: AGAP 15; BUN 14 mg/dL (8-22); CALCIUM 8.8 mg/dL (8.8-10.2); CHLORIDE 101 mmol/L (98-107); COSMO 282; CREATININE 0.8 mg/dL (0.5-0.9); ESTIMATED GFR > 60; GLUCOSE 164 mg/dL (70-104); SODIUM 139 mmol/L (136-145); TCO2 23 mmol/L (25-35)
[2018-10-17 07:30] LABS: LYMPHS 8 % (21-51); SEGS 92 % (42-75)
--- NOTE | 2018-10-17 08:08 | OPERATIVE NOTE ---
PROCEDURE DATE: 10/16/2018 SURGEON: Dr. Wai Monge. PREOPERATIVE DIAGNOSES: High right ureteropelvic junction obstruction, numerous right renal stones, chronic UTIs, gross hematuria, history of open abdominal surgery, history of extensive abdominal adhesions. POSTOPERATIVE DIAGNOSES: High right ureteropelvic junction obstruction, numerous right renal stones, chronic UTIs, gross hematuria, history of open abdominal surgery, history of extensive abdominal adhesions. PROCEDURE: Extensive laparoscopic lysis of adhesions, right robotic-assisted laparoscopic pyeloplasty, pyelolithotomy of numerous renal stones, placement of 6-Pashto 24 cm ureteral stent. INDICATIONS: A 78-year-old female with multiple medical comorbidities including diabetes and history of pulmonary embolism who has had UTIs and gross hematuria. In the process of workup imaging revealed bilateral ureteropelvic junction obstruction with numerous stones, close to 100, in each renal pelvis. She underwent left-sided procedure which was complicated by urinoma requiring hospitalization and drain placement. She now presents for right-sided pyeloplasty and pyelolithotomy. She has had open colon resection as well as open cholecystectomy with large ventral scars basically extending from above the umbilicus to the pubis. She was counseled on multiple risks including the fact that she is likely to have adhesions. FINDINGS: Extensive adhesions of large and small bowel with the staple line still noted from the previous colon resection adhered to the abdominal wall as well as the lower pole of the kidney. Please note that it took me 30% longer time to perform the procedure due to lysis of adhesions taking over 1 hour to complete. Watertight and tension free anastomosis between the ureter and the renal pelvis. Adequate stent placement. DESCRIPTION OF PROCEDURE: After obtaining informed consent, patient was brought to the operating room. She has been on scheduled antibiotics. General endotracheal anesthesia was administered. She was placed in modified flank position with the right side up. Her upper and lower extremities were appropriately padded. A Alberto catheter was kept to gravity drainage. She was prepped and draped in standard sterile fashion. We began by making a small stab incision in her right upper quadrant followed by introduction of Veress needle connected to saline-filled syringe. We confirmed positive drop test followed by aspiration of fluid in the syringe without evidence of GI contents or blood. Subsequent to the pneumoperitoneum, pressure was insufflated to 50 mmHg. I then used 10 mL of 0.5% plain Marcaine to anesthetize the sites of the proposed partial nephrectomy trocars fashioned. Once that was done, the Bovie was used to incise skin and one of the 8 mm trocars was placed for #1 arm. This was followed by insertion of 5 mm laparoscopic camera. Examination of the peritoneal cavity revealed extensive adhesions of omentum, mesentery, small bowel and large bowel. I was able to place 1 of the other trocars under direct vision and then meticulous dissection took place with laparoscopic scissors. Again, she had such extensive adhesions that took me over an hour to take them down. She had visible staple line from previous colon resection and it was adhered to the abdominal wall as well as what appeared to be a lower pole of the kidney-Gerota's fascia. We used cautery judiciously as we took down the omental adhesions. Eventually I was able to create enough space to place the rest of the trocars. The robot was undocked after she was placed in a more steep flank position. Following that, we mobilized the colon so that Gerota's fascia was exposed with exception to the very lower pole of the kidney, where the adhesions were so significant that I was concerned about injuring the colon. In the process, I freed up the liver and placed a 5 mm liver retractor. I then mobilized the duodenum allowing us to expose the vena cava. Attention was then turned toward the lower pole of the kidney and again, staying away from the bowel, I was able to dissect underneath the kidney and identify both gonadal vein and the ureter. I dissected alongside of the ureter preserving periureteral blood supply until the ureteropelvic junction was seen. She appeared to have narrowing of the UPJ as well as somewhat of a high insertion of the ureteropelvic junction. Her renal pelvis was significantly dilated. I freed up approximately 2 cm of renal pelvis circumferentially. We then made an incision in the renal pelvis and the fluid was evacuated. Numerous stones were seen. I used the high-powered suction to remove the stones and irrigated the renal pelvis copiously. I was able to examine the renal pelvis as well as the upper pole and interpolar calices. I did not see any visible stones remaining. We irrigated the renal pelvis yet once again. She had the stones analyzed and came back to be uric acid. Hence, we did not send the stones for analysis and discarded them. Once that was done, monopolar cautery was used to reduce the size of renal pelvis I excised an approximately 1 x 3 cm area. I excised the ureteropelvic junction after mobilizing the ureter allowing us to give a tension-free length. I then used 3-0 Vicryl in a running fashion and reapproximated the renal pelvis to the level of the new ureteropelvic junction. I then used interrupted 4-0 Vicryl sutures to perform anastomosis between the ureter and the renal pelvis after the ureter was spatulated with cold scissors. After placing 5 sutures on the posterior and lateral denis, Sensor wire was introduced into the ureter followed by insertion of a 6-Pashto 24 cm stent. The proximal coil was directly placed into the renal pelvis. The wire was retrieved. We then completed the anastomosis with interrupted 4-0 Vicryl sutures total, bringing the number of sutures to 9 that were used. Upon gentle tugging of the renal pelvis, the anastomosis appeared to be very tight and definitely tension-free. I decreased pneumoperitoneal pressure to 3 mmHg and inspected the working field. There was no evidence of bleeding. We placed a Philippe drain via the fourth arm port and secured it to skin with 2 nylon suture x2. We then undocked the robot and wounds were copiously irrigated. Following that, 0 Vicryl suture was used to close 12 mm trocar sites in a [id number] fashion, both the camera and electrician station assistant trocars. 4-0 Monocryl sutures were used for subcuticular closure followed by irrigation. Covidien adhesive agent was applied. Philippe drain was placed to bulb suction. She tolerated the procedure well, was extubated and taken to PACU for further recovery. ESTIMATED BLOOD LOSS: 10 mL. COMPLICATIONS: None. DRAINS: A 6-Pashto 24 cm ureteral stent. SPECIMENS: Right ureteropelvic junction which was sent off to pathology. Her numerous renal stones were discarded. DISPOSITION: To PACU and subsequently floor with Alberto catheter to gravity drainage and Philippe drain to bulb suction. I plan on checking her BEN drain creatinine the next day, but I have explained to the family that given her previous urinoma and her poorly controlled diabetes and recent course of steroids which all delay healing, we will plan on keeping the drain for several days prior to removing it. cc: Wai Monge MD
[2018-10-17] MEDS: COLACE PO SCH ×2 (08:41→20:09)
[2018-10-17] MEDS: LEVEMIR SUBQ SCH (08:41)
[2018-10-17] MEDS: TRICOR PO SCH (08:41)
[2018-10-17] MEDS: COREG PO SCH ×2 (08:41→20:09)
[2018-10-17] MEDS: MIRALAX PO SCH ×2 (08:41→20:09)
[2018-10-17] MEDS: GLUCOPHAGE PO SCH ×2 (08:41→17:37)
--- NOTE | 2018-10-17 09:34 | PROGRESS NOTE ---
DATE: 10/17/2018 SUBJECTIVE: Mrs. Richard reports she had a decent night overnight. Her pain is well controlled. She has ambulated to the door and back this morning. She denies nausea, vomiting. OBJECTIVE: T 97.9 degrees, P 89, BP 131/58, urine output was recorded in the amount of 2880 mL. Her Philippe drain had 25 mL overnight.General: No acute distress. Abdomen: Appropriately tender. Nondistended. Incisions are clean, dry, and intact in all port sites. : Alberto catheter in place draining straw-colored urine. Philippe drain has serosanguineous fluid. PERTINENT LABORATORY DATA: White cell count is 33,000, hematocrit is 35, creatinine is 0.8. Her BEN creatinine is in the process of being sent off. ASSESSMENT: A 78-year-old female, status post laparoscopic lysis of adhesions, right robotic pyeloplasty, right pyelolithotomy, placement of ureteral stent. She is doing well. I have strongly encouraged patient to ambulate throughout the day and I would like for have her Alberto removed. We discussed that when she is ready for discharge she will go home with a Philippe drain and keep it for approximately a week given her prior previous history of urinoma on the opposite side after similar surgery. If her blood work continues to be fine she would be okay to start her Xarelto on 10/19/2018. PLAN: 1. Remove Alberto catheter. 2. BEN creatinine. 3. Ambulate. 4. Okay to restart Lovenox therapeutic. We will hold off to start Xarelto until 10/19/2018. cc: Wai Monge [facility]
[2018-10-17 09:40] LABS: CREATININE BODY FLUID 0.7 mg/dL
[2018-10-17] MEDS: ZOSYN 3.375 GM in NS 50 ML IV SCH ×3 (11:21→21:28)
[2018-10-17] MEDS: MYCAMINE 100 MG in NS 100 ML IV SCH (11:47)
[2018-10-17] MEDS: LOVENOX SUBQ SCH (11:47)
[2018-10-17] MEDS: ZYVOX 600 MG/D5W 600 MG/300 ML IVPB IV SCH (13:36)
[2018-10-17] MEDS: ZOFRAN IV PRN ×2 (14:14→23:29)
--- NOTE | 2018-10-17 15:30 | PROGRESS NOTE ---
DATE: 10/17/2018 SUBJECTIVE: Today Ms. Richard refers to be feeling remarkably weak. She got nauseated and threw up a little bit early on today. She feels very weak. OBJECTIVE: Vital signs: Blood pressure 95/52, pulse of 88, respiration is 18, temperature 97.6 degrees, the patient is saturating 92% on room air. On general exam, Ms. Richard is a 78-year-old elderly female. BMI 31.2. She is in bed. No distress. Mucosa is pink and moist. Anicteric. Acyanotic. Neck: Supple. Chest: Clear to auscultation. Cardiovascular: Regular rate and rhythm. Abdomen: Soft, distended. Bowel sounds hypoactive. There are some new laparoscopic scars on the anterior abdominal wall. There is also an old healed surgical scar on the mid abdomen from previous laparoscopic surgeries. Extremities: No pedal edema. Central Nervous System: Patient is awake, alert, and oriented. Intake and Output: Urine output was 2800. After yesterday, patient was negative balance of 7000. DIAGNOSTIC STUDIES: WBC went up to 33.01 with 92% of neutrophils. Chemistry is also reviewed is completely normal. Urine culture did show some yeast. RECORDS REVIEWED: The patient underwent surgery yesterday, where there was an extensive laparoscopic lysis of adhesion, right robotic assisted laparoscopic pyeloplasty. There was also pyelolithotomy of numerous renal stones and placement of a 6-Occitan 24 cm ureteral stent. ASSESSMENT: 1. Recurrent urinary tract infection. 2. Nephrolithiasis with high uteropelvic junction obstruction. Patient is status post robotic assisted laparoscopic pyeloplasty, pyelolithotomy, and placement of a 24 ureteral stent. 3. Diabetes mellitus. We will continue with insulin regimen. 4. History of antiphospholipid syndrome with pulmonary emboli. The patient is currently on Lovenox. Will be transitioned to Xarelto on October 19 as per Urology recommendation. 5. Achalasia, asymptomatic. Patient has been evaluated by Gastroenterology. 6. Chronic constipation. cc: Manuel Martinez MD
--- NOTE | 2018-10-17 15:55 | GASTROENTEROLOGY PROGRESS NOTE ---
DATE: 10/17/2018 SUBJECTIVE: Patient resting in bed. Her is present at the bedside. The patient is feeling better. She was having her surgery done yesterday. DR. Monge is following. She was able to eat 50% of her meal. OBJECTIVE: Vital signs: Temperature of 98.9, pulse rate of 89, respiratory rate of 19, blood pressure 131/58, saturating 92% on 2 L. General appearance: Body weight of 193 pounds. BMI 31.2 kg/m2. The patient is obese, lying in bed, in no acute distress. HEENT: Mild pallor. No icterus. Neck: Supple. Abdomen: Sore from recent surgery. She has a drain in the right side upper abdomen. Appropriate discomfort from recent surgery. Extremities: No cyanosis, clubbing. Neurologic: She is alert, awake, oriented. LABS: H and H is 11.1 and 35.2, white count of 33.01, platelet count 585. Sodium of 139, potassium 4, chloride 101, bicarbonate 23, anion gap 15. BUN of 14, creatinine 0.8, glucose of 214. Calcium is 8.8. Urine culture showed yeast. IMPRESSION AND PLAN: 1. Status post laparoscopic lysis of adhesions. Right robotic assisted pyeloplasty and right pyelolithotomy and placement of ureteral stent on 10/16/2018. This is being followed by Dr. Monge. 2. Dysphagia has improved. She has acid reflux. She will continue proton pump inhibitors for now. 3. Continue to treat her with food well. 4. For constipation, we will keep her on bowel regimen. 5. History of pulmonary embolus and antiphospholipid syndrome. She is on therapeutic Lovenox. She was on Xarelto that has been withheld because of recent surgery. 6. Morbid obesity. Body mass index of 31. The patient will need to lose weight after she recovers from surgery. 7. Hypothyroidism. She is on Synthroid. 8. Type 2 diabetes on sliding scale insulin. 9. History of multiple renal stones with a history of recurrent urinary tract infections. She is on antibiotics per Dr. Luis. 10. Neck pain is improved. 11. She is on intravenous fluids and she is on bowel regimen. Colace 100 mg oral twice daily and MiraLAX twice daily. 12. Gastrointestinal prophylaxis with Prilosec 40 mg daily. 13. We will sign off at this time. The patient will follow up with us 6 weeks after discharge. The above plan was discussed with the patient and family at bedside. All questions were answered. Please call us with any further questions. cc: MD Arden Guillen MD [facility]
--- NOTE | 2018-10-17 19:55 | INFECTIOUS DISEASE PROGRESS NO ---
DATE: 10/17/2018 PRESENT ILLNESS: Ms. Richard is being treated for a recent enterococcal and fungal urinary tract infection. She is status post previous removal of numerous renal stones from the left kidney on previous admission, and yesterday had removal of numerous kidney stones from the right kidney. Today there is a reactive leukocytosis, but no fever spike. MEDICATIONS: This morning we stopped her amoxicillin and put her on Zyvox 600 mg IV every 12 hours, and Zosyn 3.375 g IV every 6 hours. We will also continue the micafungin 100 mg IV daily and Gyne-Lotrimin vaginal cream at bedtime. OBJECTIVE: Vital signs: Temperature is 97.6 degrees, pulse rate 88, respiratory rate 18, blood pressure 95/52, O2 saturation is 92% on room air. Generally this is a chronically ill-appearing, elderly female. She is lying in bed, currently in no acute distress.HEENT: Atraumatic, normocephalic. Oral mucous membranes are pink and dry. Conjunctivae are pale. Neck is supple. Trachea is midline. Cardiovascular: Heart rate is regular. Respiratory: Lung sounds are clear to auscultation bilaterally, diminished in the bases. No work of breathing is noted. Abdomen is soft, obese and extremely tender, with multiple laparoscopic incisions noted to be dry and intact. BEN drain to the right flank with serosanguineous drainage noted in the bulb. Bowel sounds are hypoactive. She does complain of some nausea, vomiting and decreased appetite today. Neurologic: She is awake, alert and oriented, and states she has been up walking with physical therapy today. LABORATORY DATA: Today her white count is 33.01, hemoglobin 11.1, platelet count 585,000. Creatinine is 0.8, estimated GFR is greater than 60. She has had yeast in her in her urine as well as an enterococcal faecalis on previous check. DIAGNOSTIC DATA: No imaging reports today. ASSESSMENT AND PLAN: Ms. Richard is status post removal of numerous stones from her right kidney. She is being treated for enterococcal and fungal urinary tract infections with an increase in leukocytosis today. We will continue the Zyvox and Zosyn as ordered as well as the micafungin and Gyne-Lotrimin, and will recheck blood work in the morning. She has been encouraged to continue to use her incentive spirometer. These plans have been discussed with and recommended by Dr. Luis. COMORBIDITIES: for Ms. Richard include that she is elderly, with pulmonary emboli and chronic anticoagulation, recurrent urinary tract infections and multiple recent hospitalizations with deconditioning. Dictated by JASON Jewell for Konrad Luis MD cc: Konrad Luis [facility]
[2018-10-17] MEDS: ZOCOR PO SCH (20:09)
[2018-10-17] MEDS: GYNE-LOTRIMIN VAGINAL CREAM VAG SCH (20:10)
[2018-10-18] MEDS: LOVENOX SUBQ SCH ×2 (01:27→11:54)
[2018-10-18] MEDS: ZYVOX 600 MG/D5W 600 MG/300 ML IVPB IV SCH ×2 (01:27→13:14)
[2018-10-18] MEDS: ZOSYN 3.375 GM in NS 50 ML IV SCH ×5 (03:45→20:40)
[2018-10-18] MEDS: PRILOSEC PO SCH (06:11)
[2018-10-18] MEDS: SYNTHROID PO SCH (06:11)
[2018-10-18 06:58] LABS: BASO# 0.03 X1000 (0.0-0.2); BASO% 0.1 % (0.0-0.8); EOS# 0.23 X1000 (0.0-0.7); EOS% 0.8 % (0.0-10.0); HEMATOCRIT 33.1 % (37.0-47.0); HEMOGLOBIN 10.4 g/dL (12.0-16.0); IMM GRAN# 0.27 X1000 (0.0-0.04); IMM GRAN% 0.9 % (0.0-0.5); LYMPH# 1.43 X1000 (1.2-3.4); LYMPH% 4.8 % (20.5-51.1); MCH 28.6 PG (27-31); MCHC 31.4 g/dL (33-37); MCV 90.9 FL (81-99); MONO# 0.81 X1000 (0.11-0.59); MONO% 2.7 % (1.7-9.3); MPV 10.1 FL (7.4-10.4); NEUT# 27.15 X1000 (1.4-6.5); NEUT% 90.7 % (42.2-75.2); PLT 545 X1000 (130-400); RBC 3.64 XMIL (4.2-5.4); RDW 13.8 % (11.5-14.5); WBC 29.92 X1000 (4.8-10.8)
[2018-10-18 07:25] LABS: CALCIUM 9.2 mg/dL (8.8-10.2); POTASSIUM 3.4 mmol/L (3.5-5.1)
[2018-10-18 07:53] LABS: BANDS 1 % (0-1); LYMPHS 10 % (21-51); MONO 2 % (1-9); SEGS 87 % (42-75)
[2018-10-18] MEDS: HUMULIN R SUBQ SCH ×4 (07:56→20:41)
[2018-10-18] MEDS: ZOFRAN IV PRN ×2 (08:12→15:44)
--- NOTE | 2018-10-18 10:23 | HEMO/ONC CONSULTATION ---
DATE: 10/14/2018 ADMITTING PHYSICIAN: Dr. Rodriguez. REQUESTING PHYSICIAN: Dr. Rodriguez. We appreciate this consult. CHIEF COMPLAINT: Pulmonary embolism. HISTORY OF PRESENT ILLNESS: Ms. Richard is a pleasant 78-year-old female, well known to Dr. 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 The patient was on Xarelto prior to admission. The patient presented to [facility] Emergency Department with complaints of neck pain that she described as severe. CT of the cervical spine without contrast revealed substantial multilevel degenerative disk disease and degenerative facet disease with degenerative neural foraminal narrowing. Additionally, the patient was found to have a white blood cell count of 18 with urinalysis positive for urinary tract infection. The patient has a history of bilateral ureteropelvic junction obstruction and numerous bilateral renal stones, approximately 100 in each kidney. The patient underwent robotic assisted laparoscopic left pyeloplasty with left ureteral stent on 08/07/2018. She developed a yeast infection during that time, as well as ongoing Enterococcus in her urine. 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 She was transferred from [facility] to [facility] for consult with Dr. Monge for recurrent urinary tract infection. We are consulted as the patient is well known to us, has a history of bilateral pulmonary emboli with ongoing treatment on Xarelto. She is currently on a Lovenox bridge in preparation for surgery. PAST MEDICAL HISTORY: 1. Pulmonary embolism with chronic anticoagulation. 2. Recurrent urinary tract infections. 3. Recurrent yeast infection. 4. Hypertension. 5. Hypothyroidism. 6. Bilateral renal stones. 7. 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 PAST SURGICAL HISTORY: 1. Left robotic assisted laparoscopic pyeloplasty and pyelolithotomy. 2. Bladder sling. 3. Bilateral hip replacement. 4. Colon resection. 5. Hysterectomy. 6. Urinoma drainage. FAMILY HISTORY: Negative for any hematologic or oncologic disease. SOCIAL HISTORY: The patient does not use tobacco, alcohol or illicit drugs. MEDICATIONS ON ADMISSION: Medication reconciliation was being reviewed at the time of dictation. ALLERGIES: The patient has no known drug allergies. REVIEW OF SYSTEMS: A 14 point review of systems was obtained and is negative, except for mentioned in HPI. PHYSICAL EXAMINATION: General: Ms. Richard is a 78-year-old female, lying supine in bed in no immediate distress. Vital Signs: Temperature is 98.1, blood pressure 192/77, heart rate 72, respirations 20, O2 saturation 99% on room air. HEENT: Normocephalic, atraumatic. Mucous membranes are pink and moist. Sclerae is anicteric. Extraocular movements intact. Neck: Supple. Lungs: Clear to auscultation bilaterally. Chest expansion is equal bilaterally. CV: S1, S2 is heard. No murmurs, rubs or gallops. Abdomen: Nondistended. Extremities: No clubbing, cyanosis. There is 3+ bilateral lower extremity edema. Dermatologic: No rashes, bruises or lesions. Neurologic: The patient is awake, alert, and oriented x3. Has no focal deficit. LABORATORY DATA: Hemoglobin 11.0, hematocrit 35.0, white blood cell count is 15.11, platelets 542. Sodium 140, potassium 4.0, chloride 104, CO2 is 24. BUN 20, creatinine 0.7, and glucose is 110. Calcium is 9.1. ASSESSMENT AND PLAN: 1. 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 The patient is currently on a Lovenox bridge in preparation for stent placement with Dr. Monge. We agree with this treatment at this time. Will return to [facility] after procedure. 2. Leukocytosis, probably secondary to #3. 3. Probable urinary tract infection with recurrent yeast infection. The patient is currently being treated. 4. Hypertension per hospitalist. 5. Hypothyroidism, known. Stable. 6. Diabetes mellitus type 2. Blood sugar is currently 110. We will continue to monitor. 7. We will follow along and make further recommendations pending outcomes. The above reflects the history, exam, assessment and plan of Dr. Marr. Dictated by JASON Martin for Aydin Marr MD cc: JASON Martin MD [facility]
[2018-10-18] MEDS: COLACE PO SCH (10:51)
[2018-10-18] MEDS: GLUCOPHAGE PO SCH (10:51)
[2018-10-18] MEDS: COREG PO SCH ×2 (10:51→20:40)
[2018-10-18] MEDS: LEVEMIR SUBQ SCH (10:52)
[2018-10-18] MEDS: TRICOR PO SCH (10:52)
[2018-10-18] MEDS: MIRALAX PO SCH ×3 (10:52→22:03)
[2018-10-18] MEDS: NS 1,000 ML IV SCH (11:00)
[2018-10-18] MEDS: MYCAMINE 100 MG in NS 100 ML IV SCH (11:01)
[2018-10-18] MEDS: MORPHINE IV PRN (11:42)
[2018-10-18] MEDS: DILAUDID IV PRN ×2 (13:22→15:44)
--- NOTE | 2018-10-18 14:01 | INFECTIOUS DISEASE PROGRESS NO ---
DATE: 10/18/2018 PRESENT ILLNESS: Ms. Richard is being treated for an enterococcal and fungal urinary tract infection. She is status post removal of numerous kidney stones in the right kidney laparoscopically with a postop reactive leukocytosis. MEDICATIONS: She is receiving Zyvox 600 mg IV every 12 hours, Micafungin 100 mg IV every 24 hours, and Zosyn 3.375 g IV every 6 hours. She is also taking Gyne-Lotrimin vaginal cream intermittently at bedtime. PHYSICAL EXAMINATION: Vital Signs: Temperature is 98.1 degrees, pulse rate 87, respiratory rate 18, blood pressure 147/66, O2 saturation 95% on 2 L nasal cannula. General: This is a chronically ill-appearing, elderly female. She is lying in bed, currently in no acute distress. HEENT: Atraumatic, normocephalic. Oral mucous membranes are pink and dry. Conjunctivae are pale pink. Neck: Supple. Trachea is midline. Cardiovascular: Heart rate is regular. Respiratory: Lung sounds are clear in the upper lobes and diminished in the bases bilaterally. She has no work of breathing noted, and excursion is shallow. Abdomen: Soft, obese, and tender to palpation. Laparoscopic incisions are dry and intact with a BEN drain in place to the right flank which has serosanguineous drainage noted in the bulb. Bowel sounds are hypoactive. She is having decreased appetite with periods of nausea and vomiting. Neurologic: She is awake, alert, oriented and able to get up with assistance. However, extremities are weak with generalized deconditioning noted. LABORATORY AND X-RAY: Today her white count is 29.92, hemoglobin 10.4, platelet count 545,000. Creatinine is 1, GFR 54. No imaging reports today. ASSESSMENT AND PLAN: Ms. Richard is status post right kidney surgery with removal of numerous stones. We have been treating her for enterococcal and fungal urinary tract infections as well as leukocytosis. Her breathing is shallow, and I have talked to her at length about the importance of getting up as much she can as well as coughing and deep breathing with splinting her abdomen. She is having trouble with nausea, vomiting, and decreased appetite. I have talked to her about taking in as much protein as possible after her nausea medication has been administered. She has also been encouraged to use her incentive spirometer. For now, we will continue Zyvox, Zosyn, Micafungin, and Gyne-Lotrimin as ordered. These plans have been discussed with and recommended by Dr. Luis. COMORBIDITIES: For Ms. Richard include that she is elderly with pulmonary emboli on chronic anticoagulation, recurrent UTIs, multiple hospitalizations, and deconditioning. Dictated by JASON Jewell for Konrad Luis MD cc: Konrad Luis MD [facility]
--- NOTE | 2018-10-18 14:47 | Diag Imaging Result Doc PS360 ---
KUB ABDOMEN - 10/18/2018 INDICATION: SBO COMPARISON: None FINDINGS: There is dense barium throughout the colon. There is a right nephroureteral stent in good position. There are bilateral hip replacements. There are several loops of dilated distended small bowel in the central abdomen. These measure up to 4.6 cm. No definite free air. IMPRESSION: Severely dilated small bowel loops indicating at least partial small bowel obstruction. Electronically signed by Abiel Jimenez 10/18/2018 2:45 PM
--- NOTE | 2018-10-18 15:17 | PROGRESS NOTE ---
DATE: 10/18/2018 Ms. Richard reports that she had a great evening yesterday but this morning felt bloated and nauseated. She reports she has passed some flatus and had bowel movement this morning. She has not been ambulating as instructed. Her family is somewhat concerned that she does not want to get out and ambulate. T 98.1 degrees, P 87, BP 147/66, urine output was recorded over 800 mL.General: No acute distress. Abdomen: Appropriately tender palpation, mildly distended, no involuntary guarding. PERTINENT LABS: White cell count is 30,000 stable from yesterday, hematocrit 33, creatinine is 1.0. ASSESSMENT/PLAN: 78-year-old female who underwent extensive laparoscopic lysis of adhesions and right robotic assisted laparoscopic pyeloplasty with pyelolithotomy and ureteral stent placement. I reviewed her KUB. She has ureteral stent in appropriate position. She has significant amount of barium throughout her bowel which is still there since her barium swallow test was done on 10/14/2018. Per radiologist's report, there is dilated bowel loops concerning for partial small- bowel obstruction. I have discussed with the family that from the urologic standpoint her Ran- Keller drain will stay until early next week given her previous history of urinoma on the opposite side. Fluid from Ran-Keller creatinine was 0.7 indicating watertight anastomosis. I have encouraged her to ambulate. PLAN: 1. Okay to restart Xarelto tomorrow on 10/19/2018. 2. She will keep BEN drain and go home with it. Will plan on removing it sometime next week. 3. I encourage her to ambulate. cc: Wai Monge MD
--- NOTE | 2018-10-18 15:40 | PROGRESS NOTE ---
DATE: 10/18/2018 SUBJECTIVE: This morning Ms. Richard refers to being extremely nauseated. She says she did have a bowel movement early this morning, but she could not be 100% sure. There have not been any documentation of bowel movement in her since October 15. OBJECTIVE: Vital signs: Blood pressure is 147/66, pulse of 87, respiration is 18, temperature is 98.1 degrees. General: Ms. Richard is a 78-year-old female. She is in bed, no distress. HEENT: Mucosa is pink and moist. Anicteric. Acyanotic. Neck: Supple. Chest: Good air entry bilaterally. Few crackles posteriorly. Cardiovascular: Regular rate and rhythm. Abdomen: Soft. It is globally distended, tympanic on percussion. Bowel sounds extremely hypoactive. There is some laparoscopic scars on the anterior abdominal wall. There is a healed old surgical scar on the anterior abdominal wall and there is a drainage on the right lateral abdominal wall. Extremities: No pedal edema. TIME STUDY STATISTICIAN: TIME STUDY STATISTICIAN patient is awake, alert, and oriented. I'S AND O'S: The patient's urine output was 800. Patient is currently negative balance of 4726. LABORATORY DATA: WBC is down to 29.92, hemoglobin is 10.4, platelet count of 545,000. Only 1% of bands on peripheral smear. Chemistry is also reviewed. Potassium is 3.4. Rest of chemistry is unremarkable. CURRENT MEDICATIONS: Have all been reviewed. She is still on Zosyn and some micafungin. Zyvox was added this morning by ID. ASSESSMENT: 1. Recurrent urinary tract infections with urine culture positive for yeast and enterococcus in the past. Patient is currently on antimicrobial therapy. 2. Nephrolithiasis with high ureteropelvic junction obstruction. Patient is status post urological intervention. Today is day 2 post postop. 3. Distended abdomen with nauseation. I think patient has severe constipation with ileus. However, mechanical obstruction cannot be 100% ruled out. We will get a KUB to have a baseline imaging and then the findings accordingly. 4. History of antiphospholipid syndrome with pulmonary emboli. We will continue with anticoagulation. 5. Achalasia stable. 6. Chronic constipation. This could have probably been worsened with narcotic therapy, recent abdominal surgery and the patient's immobility. We are getting a KUB and address this accordingly. DISPOSITION: So in general I think Ms. Richard is fairly stable. We are concerned about the abdominal findings on physical exam. We will get a KUB and address this accordingly. cc: Manuel Martinez MD
[2018-10-18] MEDS ORDERED: FLEET ENEMA PR ONE (15:56)
[2018-10-18] MEDS ORDERED: RELISTOR SUBQ ONE (15:59)
--- NOTE | 2018-10-18 16:17 | PROGRESS NOTE ---
DATE: 10/18/2018 Today, I saw Ms. Richard in her hospital bed. Her two sisters were at the bedside at the time of the encounter. Ms. Richard refers that her abdomen was extremely distended and hardened. She has not had any bowel movement. INCOMPLETE REPORT -- DICTATION ENDED HERE cc: Manuel Martinez MD
[2018-10-18] MEDS: LIPOSYN 20% 250 ML IV SCH (17:09)
[2018-10-18] MEDS: CLINIMIX E 4.25%-5% SOLUTION 1,000 ML IV SCH (17:09)
--- NOTE | 2018-10-18 18:29 | Diag Imaging Result Doc PS360 ---
EXAM: CHEST-PORTABLE INDICATION: NG tube placement TECHNIQUE: One view COMPARISON: 10/10/2018 FINDINGS: The newly placed NG tube projects well below the diaphragm and is assumed to be in the lumen of the stomach in the expected position. Limited views of the lungs show bibasilar atelectasis, more prominent on the left. There are distended loops of bowel similar to the earlier radiograph performed today. Retained barium is seen in the colon. The cardiac silhouette appears stable. IMPRESSION: Newly placed NG tube in the expected position as described. Electronically signed by Jagdeep Patton 10/18/2018 6:26 PM
[2018-10-18] MEDS: GYNE-LOTRIMIN VAGINAL CREAM VAG SCH (22:02)
[2018-10-19] MEDS: NS 1,000 ML IV SCH (00:29)
[2018-10-19] MEDS: ZOSYN 3.375 GM in NS 50 ML IV SCH ×5 (02:29→21:05)
[2018-10-19] MEDS: ZYVOX 600 MG/D5W 600 MG/300 ML IVPB IV SCH ×2 (02:29→13:53)
[2018-10-19] MEDS: LOVENOX SUBQ SCH ×2 (06:19→18:37)
[2018-10-19] MEDS: HUMULIN R SUBQ SCH ×4 (06:19→20:34)
[2018-10-19] MEDS: SYNTHROID IV SCH (06:22)
[2018-10-19 06:53] LABS: BASO# 0.03 X1000 (0.0-0.2); BASO% 0.1 % (0.0-0.8); EOS# 0.44 X1000 (0.0-0.7); EOS% 1.9 % (0.0-10.0); HEMATOCRIT 28.2 % (37.0-47.0); HEMOGLOBIN 8.8 g/dL (12.0-16.0); IMM GRAN# 0.11 X1000 (0.0-0.04); IMM GRAN% 0.5 % (0.0-0.5); LYMPH# 1.47 X1000 (1.2-3.4); LYMPH% 6.3 % (20.5-51.1); MCH 28.3 PG (27-31); MCHC 31.2 g/dL (33-37); MCV 90.7 FL (81-99); MONO# 1.08 X1000 (0.11-0.59); MONO% 4.6 % (1.7-9.3); MPV 10.6 FL (7.4-10.4); NEUT# 20.39 X1000 (1.4-6.5); NEUT% 86.6 % (42.2-75.2); PLT 508 X1000 (130-400); RBC 3.11 XMIL (4.2-5.4); RDW 13.5 % (11.5-14.5); WBC 23.52 X1000 (4.8-10.8)
[2018-10-19 07:17] LABS: ALBUMIN 2.6 g/dL (3.5-5.0); CALCIUM 8.5 mg/dL (8.8-10.2); CREATININE 1.3 mg/dL (0.5-0.9); MAGNESIUM 1.7 mg/dL (1.5-2.7); PHOSPHORUS 3.6 mg/dL (2.7-4.5); POTASSIUM 3.3 mmol/L (3.5-5.1)
[2018-10-19 07:31] LABS: BANDS 4 % (0-1); LYMPHS 2 % (21-51); MONO 4 % (1-9); SEGS 90 % (42-75)
[2018-10-19 07:32] LABS: HYPOCHROM 1+
--- NOTE | 2018-10-19 07:51 | Diag Imaging Result Doc PS360 ---
EXAM: KUB ABDOMEN INDICATION: SBO TECHNIQUE: One view COMPARISON: 10/18/2018 FINDINGS: Gas-distended loops of small bowel suggesting obstruction is approximately stable. Retained barium in the colon is unchanged. The abdomen is grossly stable, otherwise. IMPRESSION: Stable gaseous distention of small bowel. Electronically signed by Jagdeep Patton 10/19/2018 7:48 AM
--- NOTE | 2018-10-19 07:57 | GENERAL SURGERY CONSULTATION ---
DATE: 10/19/2018 REQUESTING PHYSICIAN: Dr. Martinez. REASON FOR CONSULTATION: Bowel obstruction. HISTORY OF PRESENT ILLNESS: A 78-year-old female who initially was admitted on 10/10/2018 for neck pain and possible urinary tract infection. She has had a significant stay in the hospital and has even had a procedure where she had a robotic pyeloplasty. In the interim, she has developed what sounds like a postoperative ileus. I was asked to weigh an opinion. She is feeling better. She had an NG tube placed last night. PAST MEDICAL HISTORY: Pulmonary embolism, recurrent urinary tract infection, hypertension, hypothyroidism, bilateral kidney stones, bilateral ureteropelvic junction obstruction. PAST SURGICAL HISTORY: 1. Includes recent robotic surgery. 2. Bladder sling. 3. Bilateral hip replacement. 4. Colon resection. 5. Hysterectomy. 6. Drainage of urinoma. ALLERGIES: None. HOME MEDICATIONS: In MAR, reviewed. FAMILY HISTORY: Reviewed with patient, noncontributory. REVIEW OF SYSTEMS: Fourteen systems were reviewed and negative, except as specified in HPI. PHYSICAL EXAM: Vital Signs: Patient is currently afebrile. Her vital signs are stable. General: No acute distress. HEENT: Normocephalic, atraumatic. Pupils equal, round, reactive to light. Mucous membranes moist. Oropharynx benign. Neck: Supple. Trachea midline. Cardiovascular: Regular rate and rhythm. Lungs: Grossly clear. Abdomen: Soft, slightly distended but nontender. Extremities: Moves all extremities. Neurologic: Grossly intact. Skin: No signs of jaundice. Vascular: All extremities perfused. LABORATORY: White blood cell count this morning is 23, hematocrit is 28, platelet count 508,000. Remainder of labs reviewed. Of note, her creatinine is slightly increasing now to 1.3. ASSESSMENT/PLAN: A 78-year-old female with bowel obstruction. 1. Bowel obstruction. At this time, reviewed her abdominal film from this morning, although official report is pending, it looks like the contrast from her barium swallow from several days before is still in her colon and has not moved significantly. She still has some degree of gastric distention. From a surgical point of view, I would like to try to just manage her nonoperatively the NG tube and see if we can get her to improve from this. This is likely a postoperative ileus. 2. Multiple medical comorbidities. Currently being managed by the hospitalist. 3. Elevation in her creatinine. We will defer to the hospitalist. cc: Rodney Torres MD
[2018-10-19] MEDS: COREG PO SCH (09:12)
[2018-10-19] MEDS: CLINIMIX E 4.25%-5% SOLUTION 1,000 ML IV SCH ×2 (09:12→21:00)
[2018-10-19] MEDS: DULCOLAX PR SCH (09:12)
--- NOTE | 2018-10-19 09:12 | PROGRESS NOTE ---
DATE: 10/19/2018 SUBJECTIVE: This morning Ms. Richard refers to be doing a little better. NG tube was placed in yesterday; I understand about 900 mL was drained immediately. OBJECTIVE: Vital signs: Blood pressure is 130/54, pulse of 81, respiration is 16, temperature 97.6 degrees, and patient is saturating 96%. General: Ms. Richard is a 78-year-old female. She is in bed in no distress. HEENT: Mucosa is pink and moist. Anicteric. Acyanotic. Neck: Supple. Chest: Good air entry bilaterally. No crepitations. No crackles. Cardiovascular: Regular rate and rhythm. GI: Abdomen is soft, still distended. Bowel sounds almost imperceptible and it is tympanic on percussion. There are some laparoscopic scars on anterior abdominal wall. There is an old healed surgical scar in the anterior abdominal wall. FACILITIES MAINTENANCE SUPERVISOR: Patient is awake, alert, and oriented. : Urine output: None documented. Patient is currently negative balance. LABORATORY DATA: White cell count is down to 23.52, hemoglobin is 8.8, platelet count of 508. Chemistry is also reviewed. Creatinine went up to 1.3. ASSESSMENT: 1. Recurrent urinary tract infections with culture positive for yeast and Enterococcus. The patient is on antimicrobial therapy. Infectious Disease is on board. 2. Nephrolithiasis with high-grade ureteropelvic junction obstruction. Patient is status post urological intervention. Today is day 3. 3. Distended abdomen with imaging showing severe ileus. The patient has nasogastric tube in place. KUB continues to show dilated small bowel. Surgery has been consulted. 4. History of antiphospholipid syndrome with pulmonary emboli. I will continue with anticoagulant. 5. History of achalasia noted. 6. Chronic constipation. We will schedule Dulcolax. 7. Nutritional support. The patient is on Clinimix with lipid infusion. cc: Manuel Martinez MD
[2018-10-19] MEDS: LEVEMIR SUBQ SCH (09:13)
[2018-10-19] MEDS: MIRALAX PO SCH ×2 (09:14→20:52)
[2018-10-19] MEDS ORDERED: CHLORASEPTIC SPRAY MT PRN (09:38)
[2018-10-19] MEDS ORDERED: ZOSYN ONE (10:56)
[2018-10-19] MEDS: MYCAMINE 100 MG in NS 100 ML IV SCH (12:16)
[2018-10-19] MEDS: LIPOSYN 20% 250 ML IV SCH (18:33)
[2018-10-19] MEDS: GYNE-LOTRIMIN VAGINAL CREAM VAG SCH (20:52)
[2018-10-19] MEDS: DILAUDID IV PRN (21:24)
[2018-10-20] MEDS: CLINIMIX E 4.25%-5% SOLUTION 1,000 ML IV SCH ×3 (02:09→21:25)
[2018-10-20] MEDS: ZYVOX 600 MG/D5W 600 MG/300 ML IVPB IV SCH ×2 (02:33→12:50)
[2018-10-20] MEDS: ZOSYN 3.375 GM in NS 50 ML IV SCH ×4 (02:39→20:52)
[2018-10-20] MEDS: HUMULIN R SUBQ SCH ×4 (06:08→20:51)
[2018-10-20 06:11] LABS: BASO# 0.02 X1000 (0.0-0.2); BASO% 0.1 % (0.0-0.8); EOS# 0.42 X1000 (0.0-0.7); EOS% 2.3 % (0.0-10.0); HEMATOCRIT 28.3 % (37.0-47.0); HEMOGLOBIN 8.9 g/dL (12.0-16.0); IMM GRAN# 0.13 X1000 (0.0-0.04); IMM GRAN% 0.7 % (0.0-0.5); LYMPH# 1.55 X1000 (1.2-3.4); LYMPH% 8.6 % (20.5-51.1); MCH 28.5 PG (27-31); MCHC 31.4 g/dL (33-37); MCV 90.7 FL (81-99); MONO# 1.27 X1000 (0.11-0.59); MPV 10.3 FL (7.4-10.4); NEUT# 14.72 X1000 (1.4-6.5); NEUT% 81.3 % (42.2-75.2); PLT 543 X1000 (130-400); RBC 3.12 XMIL (4.2-5.4); RDW 13.3 % (11.5-14.5); WBC 18.11 X1000 (4.8-10.8)
[2018-10-20] MEDS: SYNTHROID IV SCH (06:26)
[2018-10-20 06:49] LABS: ALBUMIN 2.8 g/dL (3.5-5.0); CREATININE 1.2 mg/dL (0.5-0.9); PHOSPHORUS 2.5 mg/dL (2.7-4.5); POTASSIUM 3.6 mmol/L (3.5-5.1)
[2018-10-20] MEDS ORDERED: FLEET ENEMA PR ONE (06:49)
--- NOTE | 2018-10-20 07:24 | GENERAL SURGERY PROGRESS NOTE ---
DATE: 10/20/2018 SUBJECTIVE: The patient is doing a little bit better. She had a [id number] bowel movement, but has not passed a significant amount of gas. NG tube had 950 out recorded yesterday. OBJECTIVE: Vital Signs: The patient is currently afebrile. Her vital signs are stable. Her O2 saturation is low at 91% on room air. General: No acute distress. HEENT: Normocephalic, atraumatic. Pupils equal, round, reactive to light. Mucous membranes moist. Oropharynx benign. Neck: Supple. Trachea midline. Cardiovascular: Regular rate and rhythm. Lungs: Grossly clear. No increased labored breathing. Abdomen: Soft. Some hypoactive bowel sounds. Nontender. Extremities: Moves all extremities. Neurologic: Grossly intact. Skin: No signs of jaundice. Vascular: All extremities perfused. LABORATORY DATA: White blood cell count 18, which is down from 23, hematocrit is stable, platelet count is stable. Electrolytes seem to be improving. Her creatinine is decreasing now to 1.2 from 1.3. Her albumin is slightly up. ASSESSMENT AND PLAN: A 78-year-old female with bowel obstruction. Bowel obstruction versus ileus. At this time, per patient request, will give her another Fleets enema. Will also get an abdominal film to see the progression of her barium from her barium swallow. I think she is making some improvement, but I do not want to remove her nasogastric tube quite yet. cc: Rodney Torres MD
[2018-10-20] MEDS ORDERED: POTASSIUM PHOSPHATE 40 MEQ in NS 250 ML IV ONE (08:42)
[2018-10-20] MEDS ORDERED: MAGNESIUM SULFATE 2 GM/S.W.I. 2 GM/50 ML IVPB IV ONE (08:42)
[2018-10-20] MEDS ORDERED: INSULIN PEN NEEDLES ONE (08:50)
[2018-10-20] MEDS: LEVEMIR SUBQ SCH (08:52)
[2018-10-20] MEDS: MIRALAX PO SCH ×2 (08:52→20:50)
[2018-10-20] MEDS: LOVENOX SUBQ SCH ×2 (08:52→20:55)
[2018-10-20] MEDS: DULCOLAX PR SCH (09:31)
[2018-10-20] MEDS: MYCAMINE 100 MG in NS 100 ML IV SCH (11:16)
--- NOTE | 2018-10-20 12:48 | Diag Imaging Result Doc PS360 ---
EXAM: ABDOMEN FLAT/UPRIGHT INDICATION: follow up bowel obstruction TECHNIQUE: 2 views COMPARISON: 10/19/2018 FINDINGS: There is persisting gaseous distention of small bowel. It is essentially stable as compared to the previous study. A large amount of retained barium remains in the colon and is unchanged. The abdomen is stable, otherwise. IMPRESSION: Approximately stable gaseous distention of bowel. Electronically signed by Jagdeep Patton 10/20/2018 12:46 PM
[2018-10-20] MEDS ORDERED: RELISTOR SUBQ ONE (14:00)
--- NOTE | 2018-10-20 14:18 | PROGRESS NOTE ---
DATE: 10/20/2018 SUBJECTIVE: This morning Ms. Richard refers to be doing okay. At some point she says she was trying to turn around and she felt remarkably short of breath, but otherwise no new complaints. OBJECTIVE: Vital signs: Blood pressure is 145/57, pulse of 85, respirations 20, temperature 97.7 degrees. Patient is saturating 98% on 2 L. General: Ms. Richard is a 78-year-old female. She was in bed, no distress. HEENT: Mucosa is pink and moist. Anicteric. Acyanotic. Neck: Supple. Chest: Clear to auscultation. No crepitations. No rhonchi. Cardiovascular: Regular rate and rhythm. GI: Abdomen is soft. Globally distended. Minimally tender. Bowel sounds are extremely hypoactive. There are some laparoscopic scars on the anterior abdominal wall. There is also an old surgical scar on the anterior abdominal midline. 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 The patient's I's and O's: Urine output, none documented. NG tube has 950 output from yesterday and none documented today. ASSESSMENT: 1. Enterococcus, recurrent urinary tract infection with yeast. 2. Nephrolithiasis with high-grade right uteropelvic junction obstruction. The patient is status post pyeloplasty and pyelolithotomy with numerous stone removal and placement of a right ureteral stent. Today is day 4 postop. 3. Postoperative ileus. NG tube continues to be in place. KUB this morning continues to show dilated small bowel, no changes. We are going to continue to encourage the patient to be more mobile to help with gas mobilization. 4. History of antiphospholipid syndrome with pulmonary emboli. We will continue with anticoagulant. 5. Achalasia. Noted. 6. Chronic constipation. Patient is on a bowel regimen. 7. Nutritional support. For now the patient is on Clinimix with lipid infusion. cc: Manuel Martinez MD
[2018-10-20] MEDS: DILAUDID IV PRN (14:26)
--- NOTE | 2018-10-20 14:51 | INFECTIOUS DISEASE PROGRESS NO ---
DATE: 10/20/2018 PRESENT ILLNESS: The patient has an enterococcal and fungal urinary tract infection. She is status post urologic surgery. She has a bowel obstruction and a leukocytosis. MEDICATIONS: The patient has been on Zyvox and Zosyn for 3 days and micafungin for 6 days. PHYSICAL EXAMINATION: Vital Signs: Temperature is 98.1 degrees, pulse 96, respirations 19, blood pressure 167/64. General: This is an obese, elderly female. She is in no acute distress. Head/eyes/ears/nose/throat: She can hear my spoken words and see near objects. She has a nasogastric tube in place. She does not have any white patches in her mouth. Neck: No meningismus. Lungs: Clear to auscultation. Cardiovascular: Heart rate is regular. Abdomen: Soft. I did not hear any bowel sounds. The patient's incisions are healing well. There is no erythema or purulence. Neurologic: The patient is awake. She can move her extremities. She does not have a tremor. LAB AND X-RAY: CBC shows a white count of 18,110, hemoglobin 8.9, and platelet count 543,000. Creatinine is 1.2, GFR is 44. X-ray of the abdomen shows small bowel gas distention. ASSESSMENT AND PLAN: As mentioned above, the patient has enterococcal and fungal urinary tract infection. She is status post urologic surgery. She has a leukocytosis and a bowel obstruction. For now, I am going to continue the patient's 3 antimicrobial agents which are Zyvox, Zosyn and micafungin. COMORBIDITIES: The patient is elderly. She is postop for urologic procedures. She has a fungal an enterococcal urinary tract infection. Patient also has recurrent renal calculi. cc: Konrad Luis MD
[2018-10-20] MEDS: LIPOSYN 20% 250 ML IV SCH (15:14)
[2018-10-20] MEDS: GYNE-LOTRIMIN VAGINAL CREAM VAG SCH (20:52)
[2018-10-21] MEDS: DILAUDID IV PRN (00:21)
[2018-10-21] MEDS: ZOSYN 3.375 GM in NS 50 ML IV SCH ×4 (02:32→19:57)
[2018-10-21] MEDS: ZYVOX 600 MG/D5W 600 MG/300 ML IVPB IV SCH ×2 (02:33→13:41)
[2018-10-21] MEDS: CLINIMIX E 4.25%-5% SOLUTION 1,000 ML IV SCH ×2 (06:19→13:40)
[2018-10-21] MEDS: SYNTHROID IV SCH (06:20)
[2018-10-21] MEDS: HUMULIN R SUBQ SCH ×3 (06:20→17:45)
--- NOTE | 2018-10-21 07:11 | GENERAL SURGERY PROGRESS NOTE ---
DATE: 10/21/2018 SUBJECTIVE: The patient is still really sluggish as far as bowel movements. Her flat and upright yesterday did show some movement of the contrast, but still present. She has not had much productivity with her bowel movements with the enemas. OBJECTIVE: Vital Signs: The patient is currently afebrile. Her vital signs are stable. General: No acute distress. HEENT: Normocephalic, atraumatic. Pupils equal, round, reactive to light. Mucous membranes moist. Oropharynx benign. Neck: Supple. Trachea midline. Cardiovascular: Regular rate and rhythm. Lungs: Grossly clear. Abdomen: Soft, minimally distended. Hypoactive bowel sounds. Extremities: Moves all extremities. Neurologic: Grossly intact. Skin: No signs of jaundice. Vascular: All extremities perfused. LABORATORY DATA: None this morning as of yet. ASSESSMENT AND PLAN: A 78-year-old female with bowel obstruction. Bowel obstruction versus ileus. At this time, she still has not really had much return of bowel function. Will get a chest x-ray to confirm nasogastric tube placement because there is some concern by the family where the nasogastric tube is. Otherwise continue supportive care. cc: Rodney Torres MD
--- NOTE | 2018-10-21 07:41 | Diag Imaging Result Doc PS360 ---
EXAM: CHEST-PORTABLE INDICATION: ngt placement TECHNIQUE: One view COMPARISON: 10/18/2018 FINDINGS: The tip of the NG tube is just below the thoracic inlet and is probably in the upper esophagus. Atelectasis at the left lung base has improved somewhat but is approximately stable on the right. No new consolidation is identified. Cardiac silhouette is stable. IMPRESSION: 1.Malpositioned NG tube with the tip near the thoracic inlet. Advancement is recommended. 2.Improvement of the mild atelectasis at the left lung base. Essentially stable, otherwise. Electronically signed by Jagdeep Patton 10/21/2018 7:39 AM
[2018-10-21] MEDS: LOVENOX SUBQ SCH ×2 (09:21→19:58)
[2018-10-21] MEDS: DULCOLAX PR SCH (09:22)
[2018-10-21] MEDS: LEVEMIR SUBQ SCH (09:23)
[2018-10-21] MEDS: MYCAMINE 100 MG in NS 100 ML IV SCH (10:37)
--- NOTE | 2018-10-21 11:00 | Diag Imaging Result Doc PS360 ---
EXAM: CHEST-PORTABLE INDICATION: ngt placement TECHNIQUE: 2 views COMPARISON: 10/21/2018 FINDINGS: During the interval, the NG tube has been advanced. The tip now projects near the region of the GE junction. It may still be in the distal esophagus. Advancement of an additional 7 to 8 cm is recommended. Otherwise, the chest is stable as compared to the recent prior study. IMPRESSION: Interval advancement of the NG tube but the tip is still not clearly below the diaphragm. Please see above discussion. Electronically signed by Jagdeep Patton 10/21/2018 10:58 AM
--- NOTE | 2018-10-21 11:02 | Diag Imaging Result Doc PS360 ---
EXAM: KUB ABDOMEN INDICATION: SBO TECHNIQUE: 2 views COMPARISON: 10/20/2018 FINDINGS: There is stable retained barium in the colon. There is still significant gas-distended loops of bowel throughout the abdomen. There may have been marginal improvement of the gaseous distention of small bowel as compared to the previous study but it is questionable. No definite large volume free abdominal gas can be identified. The abdomen is stable, otherwise. IMPRESSION: Questionable slight decrease in gaseous distention of small bowel but it is still significant. Electronically signed by Jagdeep Patton 10/21/2018 11:00 AM
--- NOTE | 2018-10-21 13:11 | INFECTIOUS DISEASE PROGRESS NO ---
DATE: 10/21/2018 PRESENT ILLNESS: The patient has an enterococcal and fungal urinary tract infection. She also has a leukocytosis, and also she has either a bowel obstruction or ileus. MEDICATIONS: The patient has been on Zosyn and Zyvox for 4 days, and micafungin for 7 days. PHYSICAL EXAMINATION: Vital Signs: Temperature is 98.4 degrees, pulse is 103, respirations 19, blood pressure 183/69. General: This is an obese, ill-appearing, elderly female. She is in no acute distress. HEENT: The patient has an NG tube in place. There is no drainage from the nose or ears. She does not have any white patches in her mouth. Neck: No pain with movement of the neck. Lungs: Clear to auscultation. Cardiovascular: Heart rate is regular. Abdomen: Distended, but soft. I did not hear any bowel sounds. Her incisions are healing, and there is no drainage coming from them. IMAGING AND LABORATORY DATA: There is no lab for today. The chest x-ray today shows that there is no new consolidation and that the nasogastric tube had to be placed in a better position. For tomorrow, a CBC and comprehensive metabolic profile have been ordered. ASSESSMENT AND PLAN: The patient has a urinary tract infection and leukocytosis. I will continue her antimicrobial agents. COMORBIDITIES: The patient is elderly. She has recently had urologic surgery, and she has a history of renal calculi. cc: Konrad Luis MD MTDD
--- NOTE | 2018-10-21 13:46 | Diag Imaging Result Doc PS360 ---
EXAM: CHEST-PORTABLE INDICATION: NGT placement TECHNIQUE: One view COMPARISON: 10/21/2018 FINDINGS: The NG tube has been advanced. The tip now projects well below the diaphragm and is assumed to be in the lumen of the stomach in expected position. Otherwise, the chest is stable as compared to the recent prior study. IMPRESSION: Interval advancement of the NG tube, which now appears to be in the expected position well below the diaphragm. Electronically signed by Jagdeep Patton 10/21/2018 1:43 PM
[2018-10-21] MEDS: MIRALAX PO SCH ×2 (13:52→19:58)
--- NOTE | 2018-10-21 15:22 | PROGRESS NOTE ---
DATE: 10/21/2018 SUBJECTIVE: This morning Ms. Richard refers to be doing fairly okay. The daughter was at the bedside at the time of the encounter. Ms. Richard has not really had any bowel movement since yesterday. She said abdomen feels a little bit better, less tight. The NG tube had to be repositioned early on today. OBJECTIVE: Vital signs: Blood pressure is 183/69, pulse of 103, respiration is 19, temperature 98.4 degrees. General: Ms. Richard is a 78-year-old female. She is in bed, no distress. HEENT: Mucosa is pink and moist. Anicteric. Acyanotic. Neck: Supple. Chest: Clear to auscultation. Cardiovascular: Regular rate and rhythm. Abdomen: Soft. It is distended but nontender. Bowel sounds are extremely hypoactive. There are some laparoscopic scars on the anterior abdominal wall. There is also some old surgical scars on the anterior abdomen wall. 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 I's and O's: Urine output is not documented. The BEN drain is 120. NG tube drain not documented. IMAGING: A chest x-ray this morning showed advancement of the NG tube. A KUB this morning shows slight decrease in gas distention of small bowel, but it is still significant. LABORATORY: No lab work for this morning. Glucose is 203. The patient's medications have all been reviewed and no changes. ASSESSMENT: 1. Nephrolithiasis with high-grade right ureteropelvic junction obstruction. Patient is status post pyeloplasty and pyelolithotomy with numerous stone removal and placement of a right ureteral stent. Today is day 5 postop. 2. Postobstructive ileus. The patient continues to be on medical management. Surgery is on board. KUB this morning seems to suggest some mild improvement. 3. Enterococcus recurrent urinary tract infection. 4. History of antiphospholipid syndrome with pulmonary emboli. Patient is on anticoagulant. 5. Achalasia. 6. Chronic constipation. Patient is on a bowel regimen. 7. Nutritional support. On Clinimix with lipid infusion. PLAN: We are going to continue encouraging some mobility and physical activity for Ms. Richard to help mobilize the gut. For now, we will continue with medical symptomatic management. cc: Manuel Martinez MD
[2018-10-21] MEDS: LIPOSYN 20% 250 ML IV SCH (16:51)
[2018-10-21] MEDS: GYNE-LOTRIMIN VAGINAL CREAM VAG SCH (19:58)
[2018-10-22] MEDS: GYNE-LOTRIMIN VAGINAL CREAM VAG SCH ×2 (00:08→21:22)
[2018-10-22] MEDS: ZOSYN 3.375 GM in NS 50 ML IV SCH ×5 (00:08→21:22)
[2018-10-22] MEDS: MIRALAX PO SCH ×3 (00:09→21:22)
[2018-10-22] MEDS: HUMULIN R SUBQ SCH ×5 (00:10→22:37)
[2018-10-22] MEDS: CLINIMIX E 4.25%-5% SOLUTION 1,000 ML IV SCH ×4 (00:11→21:23)
[2018-10-22] MEDS: ZYVOX 600 MG/D5W 600 MG/300 ML IVPB IV SCH ×2 (02:04→13:46)
[2018-10-22] MEDS: SYNTHROID IV SCH (06:12)
[2018-10-22] MEDS: SODIUM CHLORIDE 0.9% INJ PRN (06:13)
--- NOTE | 2018-10-22 06:29 | GENERAL SURGERY PROGRESS NOTE ---
DATE: 10/22/2018 SUBJECTIVE: Patient seems to be doing okay. She had some bowel movements, but there was some blood in the stool. OBJECTIVE: Vital Signs: Patient is currently afebrile. Her vital signs are stable. General: No acute distress. HEENT: Normocephalic, atraumatic. Pupils equal, round, reactive to light. Mucous membranes moist. Oropharynx benign. Neck: Supple. Trachea midline. Cardiovascular: Regular rate and rhythm. Lungs: Grossly clear. Abdomen: Soft, nontender, mild distention. Some bowel sounds auscultated. Extremities: Moves all extremities. Neurologic: Grossly intact. Skin: No signs of jaundice. Vascular: All extremities perfused. LABORATORY: Currently pending from this morning. Abdominal film pending. ASSESSMENT AND PLAN: A 78-year-old female with bowel obstruction. 1. Bowel obstruction. At this time, she has had bowel movements but would like to see where the contrast is before we get another KUB. She is having some blood in her bowel movements and it may just be irritation but we will need to monitor this. She does have a CBC ordered. We will keep her nasogastric tube in place for right now until she has some more progress on the abdominal film. 2. Blood in stool. Please see above. 3. Multiple medical comorbidities currently being managed by the hospitalist service. cc: Rodney Torres MD
[2018-10-22 06:36] LABS: BASO# 0.04 X1000 (0.0-0.2); BASO% 0.1 % (0.0-0.8); HEMOGLOBIN 7.7 g/dL (12.0-16.0); LYMPH% 6.9 % (20.5-51.1); MCH 28.4 PG (27-31); MCHC 32.1 g/dL (33-37); MCV 88.6 FL (81-99); MONO# 2.42 X1000 (0.11-0.59); MONO% 7.9 % (1.7-9.3); MPV 10.5 FL (7.4-10.4); PLT 492 X1000 (130-400); RBC 2.71 XMIL (4.2-5.4); RDW 13.1 % (11.5-14.5); WBC 30.65 X1000 (4.8-10.8)
[2018-10-22 06:42] LABS: MAGNESIUM 1.6 mg/dL (1.5-2.7); PHOSPHORUS 2.6 mg/dL (2.7-4.5)
[2018-10-22 06:51] LABS: AGAP 13; ALB/GLOB RATIO 0.7; ALBUMIN 2.4 g/dL (3.5-5.0); ALKALINE PHOSPHATASE 71 U/L (32-104); BUN 25 mg/dL (8-22); CALCIUM 8.2 mg/dL (8.8-10.2); CHLORIDE 95 mmol/L (98-107); COSMO 272; CREATININE 1.2 mg/dL (0.5-0.9); ESTIMATED GFR 44; GLUCOSE 153 mg/dL (70-104); GOT 9 U/L (10-30); GPT < 5 U/L (10-36); POTASSIUM 3.1 mmol/L (3.5-5.1); SODIUM 132 mmol/L (136-145); TCO2 24 mmol/L (25-35); TOTAL PROTEIN 5.8 g/dL (6.3-8.3)
[2018-10-22 07:49] LABS: BANDS 4 % (0-1); LYMPHS 2 % (21-51); MONO 2 % (1-9); SEGS 90 % (42-75)
[2018-10-22 07:50] LABS: HYPOCHROM 1+
[2018-10-22] MEDS: LEVEMIR SUBQ SCH (08:39)
[2018-10-22] MEDS: LOVENOX SUBQ SCH ×2 (08:40→21:22)
[2018-10-22] MEDS: DULCOLAX PR SCH (08:40)
--- NOTE | 2018-10-22 09:35 | Diag Imaging Result Doc PS360 ---
EXAM: KUB ABDOMEN 10/22/2018 HISTORY: follow up obstruction TECHNIQUE: KUB COMMENT: There is a fairly large amount of barium throughout the colon including the rectum. This is removed only slight degree since the previous study of 10/21/2018. The small bowel loops which are distended with gas are unchanged in appearance since the previous study. There is an NG tube in the stomach. There is a right ureteral stent. There is a catheter seen over the right lower abdomen. IMPRESSION: Ileus versus partial small bowel obstruction. Electronically signed by Raúl Coburn 10/22/2018 9:33 AM
[2018-10-22] MEDS: MYCAMINE 100 MG in NS 100 ML IV SCH (11:02)
[2018-10-22] MEDS ORDERED: MAGNESIUM SULFATE 4 GM/S.W.I. 4 GM/100 ML IVPB IV ONE (11:29)
[2018-10-22] MEDS ORDERED: POTASSIUM PHOSPHATE 60 MEQ in NS 250 ML IV ONE (11:29)
[2018-10-22] MEDS: DILAUDID IV PRN ×2 (12:26→17:44)
--- NOTE | 2018-10-22 13:06 | PROGRESS NOTE ---
DATE: 10/22/2018 SUBJECTIVE: Ms. Richard reports she is doing marginally better today. She has had a bowel movement yesterday and this morning. She reports occasional intermittent right-sided flank pain. OBJECTIVE: Vital Signs: T 93 degrees, P 91, BP 136/44. Her urinary output was not recorded. She spontaneously voids. Her Philippe drain had 15 mL out. General: No acute distress. Abdomen: Distended. Mildly tender to palpation. Incisions are clean, dry, and intact. Philippe drain with serosanguineous fluid. Her white cell count is 31,000, creatinine is 1.2. ASSESSMENT: A 78-year-old female, status post right robotic-assisted laparoscopic pyeloplasty and pyelolithotomy with extensive laparoscopic lysis of adhesions, who has a postoperative ileus. Appreciate Dr. Torres's involvement. From urologic standpoint, I have discussed with the patient. We will recheck her Ran-Keller creatinine, and if appropriate, will go ahead and remove her Philippe drain. I kept it in longer because last time, even though her Ran-Keller creatinine was good and drain was pulled on postop day 1, she developed a urinoma on the left side. The patient's family are in agreement. PLAN: 1. We will check BEN creatinine. 2. I advised the patient to use oxybutynin judiciously as it is a spasm medicine, and her right flank pain is likely spasm from the stent, but oxybutynin can obviously contribute to constipation, which may delay her resolution of ileus. cc: Wai Monge MD
--- NOTE | 2018-10-22 13:32 | INFECTIOUS DISEASE PROGRESS NO ---
DATE: 10/22/2018 PRESENT ILLNESS: The patient has enterococcal and fungal urinary tract infection, a leukocytosis, and a bowel obstruction versus ileus. MEDICATIONS: The patient has been on Zosyn and Zyvox now for 5 days and micafungin for 8 days. PHYSICAL EXAMINATION: Vital Signs: Temperature is 98.3 degrees, pulse 91, respirations 20, blood pressure 136/44. General: This is an obese, ill-appearing, elderly female. She is in no acute distress. Head/eyes/ears/nose/throat: Patient still has her NG tube in place. There is no drainage from her nose or ears. She does not have any white patches on her tongue. Neck: No pain with movement of her neck. Lungs: Clear to auscultation. Cardiovascular: Regular heart rate. Abdomen: Slightly distended, but it is soft and it did not appear to be tender to light palpation. Patient's incisions are healing. Neurologic: The patient is awake. She can move her extremities. There is no tremor. LAB AND X-RAY STUDIES: Chest x-ray shows no infiltrates. X-ray of the abdomen shows ileus versus small bowel obstruction. Liver function studies are normal. Creatinine is 1.2 GFR is 44. [place] [address], hemoglobin 7.7, and platelet count 492,000. ASSESSMENT AND PLAN: Patient has urinary tract infection, leukocytosis, and either a small-bowel obstruction or ileus. I plan on continuing her current antimicrobial agents. COMORBIDITIES: The patient is elderly. She recently had urologic surgery and she has a history of renal calculi. cc: Konrad Luis MD
[2018-10-22 14:24] LABS: CREATININE BODY FLUID 1.6 mg/dL
[2018-10-22] MEDS: LIPOSYN 20% 250 ML IV SCH (16:17)
--- NOTE | 2018-10-22 16:38 | PROGRESS NOTE ---
DATE: 10/22/2018 SUBJECTIVE: Today Ms. Richard was seen sitting up in a chair. She refers to be feeling for most part a lot better than yesterday. She has had multiple bowel movements since yesterday, one being just early this morning. It is documented that she has had 3 bowel movements today. OBJECTIVE: Vital signs: Blood pressure is 148/55, pulse is 80, respirations 20, temperature 97.6 degrees. The patient is saturating 100% on room air. General exam: Ms. Richard is a 78-year-old elderly female. She was sitting up in a chair. No distress. HEENT: Mucosa is pink and moist. Anicteric. Acyanotic. Neck: Supple. Chest: Clear to auscultation. Cardiovascular: Regular rate and rhythm. Abdomen: Soft, but still distended. Bowel sounds are hypoactive, but present. Minimally tender, especially to the right side. There is a BEN drain in place, and there are also multiple laparoscopic scars on the anterior abdominal wall. Extremities: No pedal edema. 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 NG tube is in place. IMAGING STUDIES: A KUB this morning continues to show ileus versus partial small bowel obstruction. LABORATORY DATA: WBC has gone up to 30.65, hemoglobin is 7.7, platelet count of 495. Patient has only 4% of bands on the peripheral smear. Chemistry is also reviewed. Creatinine is down to 1.2. Rest of chemistry is fairly unremarkable, except for potassium is slightly low. Phosphorus and magnesium are also low. We are going to replace all of these. ASSESSMENT: 1. High-grade right ureteropelvic junction stenosis. The patient is status post pyeloplasty and pyelolithotomy with numerous stone removals and placement of a right ureteral stent. Today is day 6 postoperative. 2. Nephrolithiasis noted. 3. Postoperative ileus. The patient continues to be on medical management. 4. Enterococcus, recurrent urinary tract infection. 5. History of antiphospholipid syndrome with pulmonary emboli. 6. Chronic constipation. 7. Nutritional support on Clinimix and lipid infusion. 8. Electrolyte abnormalities, including hypokalemia, hypophosphatemia and hypomagnesemia. We will continue to replace all this to see if it will help with bowel movement. 9. Acute kidney injury, improving. PLAN: So, this morning Ms. Richard seems to be doing clinically a lot better, hemodynamically stable. However, her white cell count is elevated. She continues to be on antibiotics and antifungal. She is not febrile. I am not quite sure why her blood cell count has jumped so high. I see blood cultures have been ordered by Infectious Disease. We are going to follow up on her hemodynamic parameters, and we will repeat her x-rays in the morning. If her white cell count continues to be elevated, I think it to be reasonable to rescan (CT) her abdomen and pelvis to check on the status of the stent and make sure it is not obstructed again and causing any complications since the patient has some discomfort on that side. cc: Manuel Martinez MD MTDD
[2018-10-23] MEDS: ZOFRAN IV PRN (02:01)
[2018-10-23] MEDS: ZYVOX 600 MG/D5W 600 MG/300 ML IVPB IV SCH ×2 (02:01→13:33)
[2018-10-23] MEDS: DILAUDID IV PRN ×3 (02:02→11:03)
[2018-10-23] MEDS: ZOSYN 3.375 GM in NS 50 ML IV SCH ×4 (04:17→22:00)
[2018-10-23] MEDS: CLINIMIX E 4.25%-5% SOLUTION 1,000 ML IV SCH (04:28)
[2018-10-23] MEDS: SYNTHROID IV SCH (06:10)
[2018-10-23] MEDS: SODIUM CHLORIDE 0.9% INJ PRN (06:11)
[2018-10-23] MEDS: HUMULIN R SUBQ SCH ×4 (06:11→21:28)
[2018-10-23 06:12] LABS: BASO# 0.02 X1000 (0.0-0.2); BASO% 0.1 % (0.0-0.8); EOS# 0.18 X1000 (0.0-0.7); EOS% 0.6 % (0.0-10.0); HEMATOCRIT 21.6 % (37.0-47.0); HEMOGLOBIN 6.9 g/dL (12.0-16.0); IMM GRAN# 0.24 X1000 (0.0-0.04); IMM GRAN% 0.8 % (0.0-0.5); LYMPH# 1.83 X1000 (1.2-3.4); LYMPH% 6.2 % (20.5-51.1); MCH 28.2 PG (27-31); MCHC 31.9 g/dL (33-37); MCV 88.2 FL (81-99); MONO# 1.87 X1000 (0.11-0.59); MONO% 6.3 % (1.7-9.3); MPV 10.1 FL (7.4-10.4); NEUT# 25.54 X1000 (1.4-6.5); PLT 483 X1000 (130-400); RBC 2.45 XMIL (4.2-5.4); RDW 13.1 % (11.5-14.5); WBC 29.68 X1000 (4.8-10.8)
--- NOTE | 2018-10-23 06:40 | Diag Imaging Result Doc PS360 ---
KUB ABDOMEN - 10/23/2018 INDICATION: SBO COMPARISON: 10/22/2018 FINDINGS: Stable contrast in the colon mainly in the transverse colon. Stable featureless gas distended loops of bowel in the left abdomen. No definite free air. Catheters are stable. No definite rectal gas. IMPRESSION: No change from prior. Electronically signed by Abiel Jimenez 10/23/2018 6:37 AM
[2018-10-23 07:03] LABS: ALBUMIN 2.4 g/dL (3.5-5.0); CALCIUM 7.9 mg/dL (8.8-10.2); CREATININE 1.2 mg/dL (0.5-0.9); MAGNESIUM 2.4 mg/dL (1.5-2.7); PHOSPHORUS 3.7 mg/dL (2.7-4.5); POTASSIUM 3.9 mmol/L (3.5-5.1)
[2018-10-23 07:14] LABS: BANDS 4 % (0-1); HYPOCHROM 1+; LYMPHS 8 % (21-51); MONO 1 % (1-9); SEGS 86 % (42-75)
--- NOTE | 2018-10-23 07:16 | GENERAL SURGERY PROGRESS NOTE ---
DATE: 10/23/2018 SUBJECTIVE: Patient, per the , has had more bloody urine. Otherwise, is feeling a little bit worse. OBJECTIVE: Vital Signs: Patient is currently afebrile. Her vital signs are stable. General: No acute distress. HEENT: Normocephalic, atraumatic. Pupils equal, round, reactive to light. Mucous membranes moist. Oropharynx benign. Neck: Supple. Trachea midline. Cardiovascular: Regular rate and rhythm. Lungs: Grossly clear. Abdomen: Soft. Some tenderness to palpation in the right flank. Extremities: Moves all extremities. Neurologic: Grossly intact. Skin: No signs of jaundice. Vascular: All extremities perfused. LABORATORY: [place] [address], hematocrit 21, platelet count 483,000. ASSESSMENT AND PLAN: A 78-year-old female with small-bowel obstruction. 1. Small bowel obstruction. At this time, the small bowel obstruction itself appears to be improving, but will keep her NG tube. She does have a little bit of blood in her NG tube, which may be just related to trauma from the NG tube, but will start her on Protonix twice a day. 2. Leukocytosis. At this time given her recent surgery, her blood in her urine, will get a CT scan. Her creatinine is 1.2, so will do a noncontrast CT scan. 3. Anemia. CT scan could tell us if there is any kind intra-abdominal hematoma. She has a BEN drain that has blood in it in her right flank, but it looks like it has probably clotted off. Will continue to follow her.. cc: Rodney Torres MD MTDD
--- NOTE | 2018-10-23 08:04 | Diag Imaging Result Doc PS360 ---
EXAM: CT ABDOMEN/PELVIS W/O CONTRAST 10/23/2018 HISTORY: leukocytosis and anemia post-operatively TECHNIQUE: This exam was performed using automated exposure control, adjustment of mA or kV according to patient size, and/or use of iterative reconstruction technique. COMMENT: There are atelectatic changes in both lower lobes particularly the right lower lobe. This is worse than on the previous examination of 08/14/2018. There is a right pleural effusion which was also not present previously. There is ascites. This is primarily visible in the right subphrenic space. There is dense contrast in the colon. This produces a fair amount of beam hardening artifact. The large number of stones seen previously in the right renal pelvis are no longer demonstrated however there is high density material throughout the collecting system particularly in the renal pelvis which suggests blood clots. There is a stent in the right ureter which is apparently in the distended right renal pelvis. This may be occluded by blood clots. There is a drain present on the right which passes apparently within or anterior to the right renal pelvis. In addition there is a mass which is superior to this drain and lateral to the renal pelvis measuring over 8.4 cm transversely and 6.2 cm in anterior posterior dimension. It measures 8.2 cm in superior inferior dimension. This is in contact with the renal pelvis and it is not clear whether this communicates with the collecting system. It is displacing the ascending colon anteriorly. The urinary bladder is not distended. There is a small amount of free fluid in the cul-de-sac. There is no evidence of free air. There is a subcutaneous fluid collection or nodule on the left side on image 147 measuring 19 mm in diameter. This was not present previously. There is a slight degree of anasarca in the flanks particularly on the right. There is stranding in the perinephric space and in the anterior pararenal space. No acute bony abnormalities are present. IMPRESSION: 1. Probable bleeding within the right collecting system with blood clots filling the right renal pelvis. There is apparently an adjacent hematoma or other fluid collection. The possibility that this represents an abscess cannot be excluded. Further evaluation with contrast may be desirable. These findings were not present on 08/14/2018. The right-sided drain appears to be displaced by this mass. 2. New pleural effusion and worsened atelectasis on the right. New ascites. Other minor findings as described above. Electronically signed by Raúl Coburn 10/23/2018 8:02 AM
[2018-10-23] MEDS: DULCOLAX PR SCH (08:56)
[2018-10-23] MEDS: MIRALAX PO SCH (08:57)
[2018-10-23] MEDS: LEVEMIR SUBQ SCH (08:57)
[2018-10-23] MEDS: PROTONIX IV SCH ×3 (09:05→18:04)
[2018-10-23] MEDS ORDERED: NS 500 ML IV ONE (10:38)
[2018-10-23] MEDS: MUCOMYST 20% PO SCH (11:04)
[2018-10-23] MEDS ORDERED: DILAUDID IV PRN ×2 (11:15→14:00)
[2018-10-23] MEDS: MYCAMINE 100 MG in NS 100 ML IV SCH (11:26)
[2018-10-23] MEDS ORDERED: NS 1,000 ML IV ONE (11:30)
[2018-10-23] MEDS ORDERED: DILAUDID IV ONE (12:15)
--- NOTE | 2018-10-23 17:26 | Diag Imaging Result Doc PS360 ---
EXAM: CT ABD/PELVIS/PULM ARTERIES 10/23/2018 HISTORY: hematoma, ? mass, r/o PE TECHNIQUE: This exam was performed using automated exposure control, adjustment of mA or kV according to patient size, and/or use of iterative reconstruction technique. COMMENT: Thorax: 3-D MIPS were performed. The current study is compared with the previous examination of 11/12/2017. 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 There are no filling defects in the pulmonary arteries. There is an NG tube in the esophagus. The thoracic aorta is normal in caliber without evidence of dissection. There are some calcifications in the circumflex artery. The NG tube tip is in the body of the stomach. There is a small right pleural effusion. This was not present at the time the previous examination. The filling defects which were present in the pulmonary arteries on the previous examination are however no longer present. There is apparent atelectasis in both lower lobes particularly the posterior right lower lobe. This was not present previously. There is no evidence of significant adenopathy. The regional skeleton appears to be intact. ABDOMEN: The current study is compared with the previous examination of 08/14/2018 and the noncontrast study of 10/23/2018 performed at 07. There is ascites with a particularly large fluid collection in the right subphrenic space. There is still hyperdense material in the right renal collecting system. There are some small stones layering dependently in the left renal pelvis. Otherwise the liver spleen adrenal glands and pancreas are stable in appearance. The aorta is not distended. The mesenteric and renal arteries are patent. There is no evidence of active extravasation of contrast to indicate active bleeding. The right renal pelvis and the adjacent retroperitoneal mass which has been described previously are of similar density. In aggregate this has not changed significantly in size since the previous study at 0727. No contrast opacification of the urinary tract is present on the portal venous phase. There is still nephrographic contrast present on the left side and there is a somewhat delayed nephrogram on the right. There is contrast in the urinary bladder which is largely obscured by the beam hardening artifact from the hip prostheses on the delayed images of the pelvis. IMPRESSION: Delayed excretion of contrast from the right kidney. Left nephrolithiasis. Probable perinephric hematoma and blood clots within the right collecting system. Other findings as previously described. Electronically signed by Raúl Coburn 10/23/2018 5:23 PM
--- NOTE | 2018-10-23 17:39 | PROGRESS NOTE ---
DATE: 10/23/2018 SUBJECTIVE: Today Ms. Richard refers to be hurting. Early on this morning she was evaluated by Surgery, and a CT scan of the abdomen and pelvis without contrast was done which revealed probable bleeding within the right collecting system with blood clot filling in the right renal pelvis. OBJECTIVE: Vital signs: Blood pressure is 151/55, pulse 113, respirations 18, temperature 98.2. General: Ms. Richard is a 78-year-old elderly female. She was in bed, was in some painful distress. HEENT: Mucosa is pink and moist. Anicteric. Acyanotic. NG tube is in place. Neck: Supple. Chest: Clear to auscultation. Cardiovascular: Regular rate and rhythm. Abdomen: Soft, distended. There is some tenderness more so to the right flank. The BEN drain is still in place. There are also some recent laparoscopic scars on the anterior abdominal wall. The abdomen is remarkably distended. Bowel sounds are hypoactive. Extremities: No pedal edema. 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 LABORATORY DATA: Has been reviewed WBC is 29.69, hemoglobin is 6.9, platelet count of 483,000. Patient has 4% bands on peripheral smear. Chemistry is also reviewed. Creatinine is the same as yesterday, 1.2. ASSESSMENT: 1. High-grade right ureteropelvic junction stenosis. The patient is status post pyeloplasty and pyelolithotomy with removal of numerous stones and placement of a right ureteral stent. Today is day 7 postop. However, the patient continues to be showing remarkable abdominal discomfort. A CT scan this morning has shown some bleeding into the right collecting system. There is also an apparent adjacent hematoma. Urology has been notified. I have spoken directly with Dr. Monge, and he recommends we do a CT scan of the abdomen and pelvis with contrast to have a better delineation of the structures and whatever is going on. 2. Nephrolithiasis noted. 3. Postoperative ileus, resolved. 4. History of antiphospholipid syndrome with pulmonary emboli. The patient was on Xarelto at one point. She was transition to therapeutic Lovenox, and she was on this until just today. Anticoagulation has been withheld because of the ongoing intra-abdominal hematoma. 5. Chronic constipation. 6. Nutritional support. Patient is currently on Clinimix. 7. Acute kidney injury. Creatinine is 1.2. The patient is going to have contrast. I have explained the possibility of the renal function getting worse with the family members and the patient herself. Everybody is on board. 8. 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 The patient is on antimicrobial therapy. Infectious Disease is on board. PLAN: So, in general, Ms. Richard this morning looks to be in more pain. Hemoglobin is low. She is getting a unit of blood transfused. I have discussed the findings on the CT scan with the surgeon and also with Dr. Monge. Dr. Monge has recommended a CT scan of the abdomen and pelvis with contrast. I understand the family friend, who is also a physician by name of Dr. Yesy Tenorio, came to visit the patient and has a concern of if the patient could have PE. In my judgment, I do not think the patient has PE. She was on therapeutic Lovenox just until this morning, and she does not seem to have any respiratory symptoms. In any case, I think it is going to be extremely rare for her to be on therapeutic Lovenox and develop a PE. The family was, however, very adamant that they wanted to do a CTA. So we will do a CTA with the CT abdomen and pelvic as well. I have also explained the risk of multiple CT radiation as well as contrast to Ms. Richard, and the family is in agreement. cc: Manuel Martinez MD
[2018-10-23] MEDS: LIPOSYN 20% 250 ML IV SCH (18:13)
--- NOTE | 2018-10-23 20:56 | INFECTIOUS DISEASE PROGRESS NO ---
DATE: 10/23/2018 PRESENT ILLNESS: The patient has enterococcal and fungal urinary tract infection, a leukocytosis and a bowel obstruction versus ileus. MEDICATIONS: This is day 6 of treatment with Zosyn and Zyvox, and day 9 of treatment with micafungin. PHYSICAL EXAMINATION: Vital signs: Temperature is 98.2 degrees, pulse 113, respirations 18, blood pressure 151/55. Generally this is an ill-appearing elderly female. She is lethargic. Head, eyes, ears, nose and throat: No drainage noted from the nose or ears. She still has her NG tube in place.Neck: No pain with movement of her neck. Lungs clear to auscultation. Cardiovascular: Regular heart rate. Abdomen is distended but soft, and did not appear to be tender today. The patient has a drain in and her incision is healing. Neurologic: The patient is lethargic today. She does not have a tremor. LAB AND X-RAY: No new radiographic study for today. CBC shows a white count of 29,680, hemoglobin 6.9 and platelet count 483,000. Creatinine is 1.2, GFR is 44. Blood cultures are pending. ASSESSMENT AND PLAN: 1. The patient has urinary tract infection, leukocytosis, possible small-bowel obstruction versus ileus. I am going to continue current antibiotics. I agree with Dr. Torres, ordering CT scan of the abdomen and pelvis. 2. Comorbidities: The patient is elderly. She has recently had surgery with Dr. Monge. She also has a history of renal calculi. cc: Konrad Luis MD
[2018-10-24] MEDS: GYNE-LOTRIMIN VAGINAL CREAM VAG SCH (00:25)
[2018-10-24] MEDS: MIRALAX PO SCH ×2 (00:27→11:15)
[2018-10-24] MEDS: CLINIMIX E 4.25%-5% SOLUTION 1,000 ML IV SCH ×2 (01:44→16:54)
[2018-10-24] MEDS: MUCOMYST 20% PO SCH ×3 (02:37→21:11)
[2018-10-24] MEDS: ZYVOX 600 MG/D5W 600 MG/300 ML IVPB IV SCH ×2 (02:41→14:46)
[2018-10-24] MEDS: ZOSYN 3.375 GM in NS 50 ML IV SCH ×4 (03:50→20:52)
[2018-10-24] MEDS: HUMULIN R SUBQ SCH ×4 (06:29→21:08)
[2018-10-24] MEDS: SYNTHROID IV SCH (06:30)
[2018-10-24] MEDS: PROTONIX IV SCH ×2 (06:30→18:08)
--- NOTE | 2018-10-24 07:00 | GENERAL SURGERY PROGRESS NOTE ---
DATE: 10/24/2018 SUBJECTIVE: Reviewed CT scan and reviewed findings. There is a hematoma and possible extravasation. Awaiting recommendation from Dr. Monge. OBJECTIVE: Vital Signs: Patient is currently afebrile. Vital signs are stable. General: No acute distress. HEENT: Normocephalic, atraumatic. Pupils equal, round, reactive to light. Mucous membranes moist. Oropharynx benign. Neck: Supple. Trachea midline. Cardiovascular: Regular rate and rhythm. Lungs: Grossly clear. Abdomen: Soft. Some right flank tenderness. No peritoneal signs. Extremities: Moves all extremities. Neurologic: Grossly intact, although she has some mild slurred speech. Skin: No signs of jaundice. Vascular: All extremities perfused. LABORATORY: Reviewed from yesterday. CT scans as noted above. ASSESSMENT AND PLAN: A 78-year-old female with small-bowel obstruction. 1. Small bowel obstruction. At this time, I think she has made improvement with her small bowel. Her NG tube output is decreased. It looks like on her CT scan the contrast is slowly moving through. She has had a bowel movement. She has passed a little bit of gas. Will hold off on trying to advance her diet at this point secondary to the fact she may be having intervention by Urology. 2. Intra-abdominal hematoma. At this time, defer to Urology. There is some concern on the report that there might be extravasation, so again, will defer to Urology. Will keep her n.p.o. just in case. We have held her Lovenox for right now. 3. Slurred speech. At this time, may be related to pain medication, but will need to monitor. In the morning I will discuss with Dr. Martinez. If it does not seem to improve, may need to consider CT scan of her head. 4. Leukocytosis. Likely related to the intra-abdominal process. 5. Anemia. Likely related to the intra-abdominal process. cc: Rodney Torres MD
[2018-10-24 07:17] LABS: BASO# 0.02 X1000 (0.0-0.2); BASO% 0.1 % (0.0-0.8); EOS# 0.07 X1000 (0.0-0.7); EOS% 0.3 % (0.0-10.0); HEMATOCRIT 22.8 % (37.0-47.0); HEMOGLOBIN 7.3 g/dL (12.0-16.0); IMM GRAN# 0.25 X1000 (0.0-0.04); IMM GRAN% 0.9 % (0.0-0.5); LYMPH# 1.18 X1000 (1.2-3.4); LYMPH% 4.4 % (20.5-51.1); MCH 28.2 PG (27-31); MONO# 1.48 X1000 (0.11-0.59); MONO% 5.6 % (1.7-9.3); MPV 10.7 FL (7.4-10.4); NEUT# 23.64 X1000 (1.4-6.5); NEUT% 88.7 % (42.2-75.2); PLT 496 X1000 (130-400); RBC 2.59 XMIL (4.2-5.4); RDW 13.8 % (11.5-14.5); WBC 26.64 X1000 (4.8-10.8)
[2018-10-24 07:25] LABS: ALBUMIN 2.1 g/dL (3.5-5.0); CALCIUM 7.9 mg/dL (8.8-10.2); CREATININE 1.1 mg/dL (0.5-0.9); PHOSPHORUS 2.9 mg/dL (2.7-4.5); POTASSIUM 4.4 mmol/L (3.5-5.1)
[2018-10-24 08:36] LABS: LYMPHS 4 % (21-51); SEGS 96 % (42-75)
[2018-10-24] MEDS ORDERED: ZOFRAN ONE (10:01)
[2018-10-24] MEDS ORDERED: DIPRIVAN 1% ONE (10:01)
[2018-10-24] MEDS ORDERED: FENTANYL ONE (10:01)
[2018-10-24] MEDS ORDERED: XYLOCAINE-MPF 2% ONE (10:01)
--- NOTE | 2018-10-24 10:09 | PROGRESS NOTE ---
DATE: 10/24/2018 Ms. Richard has not been improving quite like we expected her to. Yesterday she had CT scan of abdomen and pelvis done without contrast secondary to persistent elevated white cell count and right flank pain. The CT scan revealed likely blood clots in the right collecting system as well as around the kidney. Upon my review and Dr. Cruz, it appears that the stent may no longer be in the renal pelvis, but rather outside of it. I have discussed this with Eunice Hayward, the nurse practitioner, and advice to get a CT scan with contrast to make sure that there was not an active hematoma. It appears that she does have some blood clots within the renal pelvis and the calices and the stent does not appear to be in appropriate position in the renal pelvis. Per Ms. iRchard's daughter, who is present at the bedside, she was somewhat confused overnight. She received Dilaudid and currently her pain is controlled. OBJECTIVE: Temperature 98.6 degrees, P 106, BP 151/61. Her BEN drain did not have any output.General: No acute distress. Abdomen: Appropriately tender. Nondistended. Incisions are clean, dry, and intact. BEN drain has scant amount of bloody fluid in it. PERTINENT LABORATORY [place]: [place] [address], hematocrit is 23. Creatinine is 1.1. ASSESSMENT AND PLAN: A 78-year-old female who underwent right robotic pyeloplasty and pyelolithotomy with stent placement, who was restarted on her blood thinners given her history of pulmonary emboli and anti-phospholipid antibody syndrome. I suspect that she had delayed bleeding after reinitiation of her blood thinners which caused the renal pelvis to fill up with blood and potentially displaced the stent. I have discussed with her family and Ms. Richard that I am concerned given the distention the pelvis, if the sutures that I put in to reconstruct the pelvis, whether they are intact or not. I have discussed with the family that it would be davalos to take her to the operating room and perform right diagnostic ureteroscopy to A) place a stent in the appropriate position and B) evaluate the integrity of anastomosis of the sutures. Her family is in agreement. We discussed the risks of the procedure including, but not limited to bleeding, infection, injury to the ureter, injury to the kidney and need for additional interventions. We also discussed that her BEN drain likely has been clogged up with blood or blood products and I will remove it when she is in the operating room. PLAN: 1. N.p.o. 2. To the operating room this morning for cystoscopy, right diagnostic ureteroscopy, right ureteral stent placement. cc: Wai Monge MD
[2018-10-24] MEDS ORDERED: QUELICIN (DOSE) ONE (10:17)
[2018-10-24] MEDS ORDERED: PEPCID ONE (10:25)
[2018-10-24] MEDS: MYCAMINE 100 MG in NS 100 ML IV SCH (10:34)
[2018-10-24] MEDS ORDERED: NEO-SYNEPHRINE ONE (10:55)
[2018-10-24] MEDS: DULCOLAX PR SCH (11:14)
[2018-10-24] MEDS: LEVEMIR SUBQ SCH (11:16)
--- NOTE | 2018-10-24 11:46 | Diag Imaging Result Doc PS360 ---
EXAM: RETROGRADES 2 OR 3 FILMS 10/24/2018 HISTORY: GROSS HEMATURIA, RECENT KIDNEY SURG., PLACEMENT STENT RT. TECHNIQUE: 36 images, 8.8 mGy, 14 seconds fluoroscopy time. COMMENT: Ureteroscopy was performed by Dr. Monge. The stent which was present at the beginning of the procedure was removed and a guidewire placed in the collecting system. Contrast injected in the upper tract demonstrates clot material filling the collecting system. There is extravasation of contrast material in around the right kidney. This may be within a pre-existing urinoma/hematoma as demonstrated on recent CT examinations. IMPRESSION: Replacement of right ureteral stent. Extravasation of contrast, probably into pre-existing urinoma/hematoma. Electronically signed by Raúl Coburn 10/24/2018 11:44 AM
[2018-10-24] MEDS: LIPOSYN 20% 250 ML IV SCH (16:54)
--- NOTE | 2018-10-24 19:12 | PROGRESS NOTE ---
DATE: 10/24/2018 SUBJECTIVE: Today, Ms. Richard referred to be feeling a lot better. She was just about to be moved to OR. OBJECTIVE: Vital Signs: Blood pressure was 159/64, pulse of 107, respiration is 18, temperature 98.6 degrees. Patient was saturating 98% on nasal cannula. General: Ms. Richard is a 78-year-old, elderly female. She was in bed, no distress. HEENT: Mucosa is pink and moist. Anicteric. Acyanotic. Neck: Supple. Chest: Good air entry bilateral. Cardiovascular: Regular rate and rhythm. Abdomen: Soft, very distended and tender everywhere, more so to the right flank. Extremities: No pedal edema. 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 There is an NG tube still in place. LABORATORY DATA: WBC is down to 26.64, hemoglobin is 7.3, platelet count of 496,000. Chemistry is also reviewed. Creatinine is 1.1. IMAGING: Imaging studies from yesterday have all been reviewed. ASSESSMENT: 1. Perinephric hematoma and blood clots in the right collecting system, suggestive of complications of the stent. Patient is pending stent re-evaluation today by Urology. 2. High-grade right ureteropelvic junction stenosis. Patient is status post pyeloplasty and pyelolithotomy with removal of stones and placement of a right ureteral stent. 3. Nephrolithiasis noted. 4. Postoperative ileus, resolved. 5. History of antiphospholipid syndrome and pulmonary emboli. The patient was on Lovenox, but because of the bleed, this was withheld since yesterday. 6. Acute kidney injury, stable. 7. 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 Patient is on antimicrobial therapy. Infectious Disease is on board. 8. Anemia, secondary to acute bleed. The patient is status post 1 packed red blood cell transfusion yesterday. So, in general, I feel Ms. Richard continues to be fairly sick. She is pending urological intervention today to re-evaluate the stent and treat any complication that has resulted. We will re-evaluate her after the surgery. cc: Manuel Martinez MD
--- NOTE | 2018-10-24 20:29 | OPERATIVE NOTE ---
PROCEDURE DATE: 10/24/2018 SURGEON: Wai Monge MD PREOPERATIVE DIAGNOSES: 1. Gross hematuria. 2. Right hydronephrosis. 3. Recent urologic surgery. 4. Concern for malposition stent. POSTOPERATIVE DIAGNOSES: 1. Gross hematuria. 2. Right hydronephrosis. 3. Recent urologic surgery. 4. Concern for malposition stent. PROCEDURE: 1. Cystoscopy. 2. Clot evacuation. 3. Right ureteral stent removal. 4. Right diagnostic ureteroscopy. 5. Right retrograde pyelogram. 6. Placement of right 6-Icelandic 24 cm ureteral stent. INDICATIONS: A 78-year-old female, who underwent right robotic-assisted laparoscopic pyeloplasty and pyelolithotomy with multiple stones with ureteral stent placement on 10/16/2018. Her hospitalization course was complicated by postoperative ileus requiring NG tube placement. She did well on from urologic standpoint for several days and had BEN creatinine which was acceptable. She then took a course for the worse with developing right flank pain and hematuria. Her BEN drain stopped producing output as well. She underwent CT scan abdomen and pelvis without contrast on 10/23/[address] of abdomen and pelvis with IV contrast the same day, which revealed distended right renal pelvis with concern for blood clots throughout the pelvis as well as a perirenal hematoma versus urinoma. It also appeared that the ureteral stent was not in ideal position. I was concerned given the recent pyeloplasty that delayed bleeding in the renal pelvis which likely resulted because she had to be restarted on anticoagulation secondary to pulmonary embolus history. That distended renal pelvis with blood clot within it might have disrupted anastomosis with subsequent proximal end of the stent coming out of the renal pelvis. She was counselled on diagnostic ureteroscopy and reposition of the stent. FINDINGS: Findings her bladder had several well organized clots within it. Those were evacuated with the graspers as well as Miriam syringe irrigation. Her ureter was dilated with multiple small clots throughout the ureter that again appeared to be well organized. I was able to see the ureteropelvic junction with Vicryl sutures intact and drive ureteroscope to what appeared to be upper pole of the renal pelvis. Her right renal pelvis is also full of clots. The retrograde pyelogram at the level of proximal ureter revealed a small amount of extravasation of the ureteropelvic junction and then very, very dilated right renal pelvis with huge filling defect again corresponding to the large amount of clots directly visualized. A 6-Icelandic, 24 cm stent was placed under fluoroscopic guidance to what appears to be right upper pole of the kidney. After obtaining informed consent, the patient was brought to the operating room. She was on scheduled antibiotics, hence no perioperative antibiotics were administered. General endotracheal anesthesia was administered. She was placed in lithotomy position, prepped and draped in sterile fashion. A 21-Icelandic rigid cystoscope was used to gain access to the urethra and the bladder which was examined in systematic fashion. Her bladder had several well-organized clot about the size of a dime. They were firm and rubbery and I was at 1st unable to evacuate them with just irrigation. Hence, I used rigid stent graspers and burrowed the well-organized clot into smaller pieces and subsequent evacuated with a Miriam syringe. The right ureteral stent was seen protruding from the ureteral orifice. It was secured with graspers and brought out through the urethral meatus. I then introduced a Sensor wire via the stent and advanced it with fluoroscopy confirming the wire going up to the level of presumed renal pelvis and then reflected back down. I then introduced a rigid ureteroscope alongside of the wire. Her ureter was widely patent and quite dilated, but has also had small noodle-type clots throughout basically the entire length of the ureter. I directly visualized the ureteropelvic junction, which was evident by entrance of the ureteroscope into the dilated renal pelvis and visible Vicryl sutures. What I could see with a rigid ureteroscope, the sutures appear to be intact and there was no anastomotic disruption. I then inspected the renal pelvis and it was basically quite distended and full of blood clots. I then retrieved the ureteroscope to the level of proximal ureter an introduced 50% diluted Omnipaque dye to perform retrograde pyelogram. It revealed dilated portion of the ureter and a small amount of extravasation of dye to the ureteropelvic junction as well as contrast filling up the renal pelvis in a few calices. Being satisfied with the small extravasation, we stopped and I slowly removed the ureteroscope. In the standard fashion then a 6-Icelandic, 24 cm stent was advanced over the wire via the cystoscope with the proximal coil position confirmed fluoroscopically distal coil directly visualized. The string was detached from the stent. A 16- Icelandic Alberto catheter was introduced after the cystoscope was removed. I then removed the BEN drain which has not been draining by cutting the suture. She was subsequently extubated and taken to PACU for further recovery. ESTIMATED BLOOD LOSS: None on active blood loss. COMPLICATIONS: None. DRAINS: A 16-Icelandic Alberto catheter and 6-Icelandic, 24 cm ureteral stent. SPECIMENS: Clots in the bladder which were discarded. DISPOSITION: To PACU and subsequently to the floor for observation with Alberto catheter to gravity drainage. cc: Wai Monge MD
[2018-10-25] MEDS: GYNE-LOTRIMIN VAGINAL CREAM VAG SCH (00:08)
[2018-10-25] MEDS: MIRALAX PO SCH ×2 (00:09→09:37)
[2018-10-25] MEDS: ZYVOX 600 MG/D5W 600 MG/300 ML IVPB IV SCH ×2 (02:00→14:34)
[2018-10-25] MEDS: ZOSYN 3.375 GM in NS 50 ML IV SCH ×2 (04:55→09:36)
[2018-10-25] MEDS: CLINIMIX E 4.25%-5% SOLUTION 1,000 ML IV SCH ×2 (04:56→19:32)
[2018-10-25] MEDS: HUMULIN R SUBQ SCH ×3 (06:10→19:32)
[2018-10-25] MEDS: PROTONIX IV SCH ×2 (06:10→19:33)
[2018-10-25] MEDS: SYNTHROID IV SCH (06:11)
[2018-10-25 07:05] LABS: BASO# 0.02 X1000 (0.0-0.2); BASO% 0.1 % (0.0-0.8); EOS# 0.08 X1000 (0.0-0.7); EOS% 0.3 % (0.0-10.0); HEMATOCRIT 21.2 % (37.0-47.0); HEMOGLOBIN 6.7 g/dL (12.0-16.0); IMM GRAN# 0.19 X1000 (0.0-0.04); IMM GRAN% 0.7 % (0.0-0.5); LYMPH# 1.08 X1000 (1.2-3.4); LYMPH% 4.1 % (20.5-51.1); MCH 27.9 PG (27-31); MCHC 31.6 g/dL (33-37); MCV 88.3 FL (81-99); MONO# 1.61 X1000 (0.11-0.59); MPV 10.5 FL (7.4-10.4); NEUT# 23.64 X1000 (1.4-6.5); NEUT% 88.8 % (42.2-75.2); PLT 476 X1000 (130-400); WBC 26.62 X1000 (4.8-10.8)
[2018-10-25 07:19] LABS: CALCIUM 8.1 mg/dL (8.8-10.2); CREATININE 1.1 mg/dL (0.5-0.9); POTASSIUM 4.2 mmol/L (3.5-5.1)
[2018-10-25] MEDS ORDERED: NS 500 ML IV ONE (08:57)
[2018-10-25] MEDS: MYCAMINE 100 MG in NS 100 ML IV SCH (09:31)
[2018-10-25] MEDS: DULCOLAX PR SCH (09:37)
[2018-10-25] MEDS: LEVEMIR SUBQ SCH (09:37)
[2018-10-25] MEDS: LOVENOX SUBQ SCH ×2 (09:37→21:30)
--- NOTE | 2018-10-25 13:35 | GENERAL SURGERY PROGRESS NOTE ---
DATE: 10/25/2018 SUBJECTIVE: Patient seems to be doing okay. She tolerated her procedure yesterday. She has had some bowel movement. She is a little bit confused but otherwise is doing okay. OBJECTIVE: Vital Signs: Patient is currently afebrile. Her vital signs stable. General: No acute distress. HEENT: Normocephalic, atraumatic. Pupils equal, round, reactive to light. Mucous membranes moist. Oropharynx benign. Neck: Supple, trachea midline. Cardiovascular: Regular rate and rhythm. Lungs: Grossly clear. Abdomen: Soft, appropriately tender. In her right flank there is a little bit of a subcutaneous hematoma. Extremities: Moves all extremities. Neurologic: Grossly intact. Skin: No signs of jaundice. Vascular: All extremities perfused. LABORATORY: None this morning as of yet. ASSESSMENT/PLAN: A 78-year-old female with bowel obstruction: 1. Bowel obstruction. At this time, she is making improvement. I will remove her nasogastric tube. She did tolerate her clear liquids, having it clamped and we will start her on full liquids. She is having bowel movement so we will continue to monitor her. Discussed with the family. If she starts getting sick we will slow down. 2. Intra-abdominal hematoma. At this time urology has evaluated it. There does not appear to be any leak at her anastomosis. 3. Slurred speech. At this time, we will continue to monitor her. 4. Postoperative state. At this time, we will switch her over to sequential compression devices and restart Lovenox and monitor closely. cc: Rodney Torres MD
[2018-10-25] MEDS: MERREM 2 GM in NS 50 ML IV SCH ×2 (14:34→22:30)
--- NOTE | 2018-10-25 18:35 | PROGRESS NOTE ---
DATE: 10/25/2018 SUBJECTIVE: This morning, Ms. Richard Looks a lot better. She was more lively, talking. She was sitting up in a.m. in a chair. Her daughter was at the bedside with her at the time of the encounter. OBJECTIVE: Vital signs: Blood pressure is 147/57, pulse of 105, respiration is 18, temperature 98.1 degrees. General: Ms. Richard is a 78-year-old elderly female. She was sitting up in a chair. No distress. Mucosa is slightly pale but anicteric. Acyanotic. Neck: Supple. Chest: Clear to auscultation. No crepitations. No rhonchi and no accessory muscle use. Cardiovascular: Regular rate and rhythm. No murmurs, no rubs, no gallops. [place] beat in 5th intercostal space, midclavicular line. Gastrointestinal: Abdomen was soft, minimally distended, but nontender. The right flank to the right CVA was all covered with sterile dressing, some of it was slightly soiled with blood. The patient also has some superficial decubitus ulcers, which was reviewed. Central Nervous System: Patient was awake, alert, oriented, very cooperative today. LABORATORY DATA: White cell count is 26.62, hemoglobin is 6.7, platelet count of 476,000. Chemistry is also reviewed. Creatinine is down to 1.1. Rest of chemistry is unremarkable. Operative report yesterday suggest procedure done was cystoscopy, clot evacuation, right ureteral stent was removed. There was a right diagnostic ureteroscopy. A right retrograde pyelogram and another placement of a right ureteral stent. ASSESSMENT: 1. Hydroureter secondary to intraureteral blood clots and perinephric hematoma. The patient had another urological intervention yesterday. Please refer to the details of the procedure done. This morning, she feels a whole lot better. It appears a lot of clots were evacuated both in the bladder and in the proximal renal pelvis. Another stent was deployed. 2. High-grade right uteropelvic junction stenosis. The patient had a stent repositioned yesterday. 3. Nephrolithiasis. 4. Postoperative ileus resolved. 5. History of antiphospholipid syndrome and pulmonary emboli. Full anticoagulation has been withheld yesterday. It was restarted, this morning. 6. 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 Patient is on antimicrobial therapy. Infectious Disease is on board. 7. Anemia secondary to acute blood loss. Hemoglobin and hematuria is down to 6.7. Patient has been grouped and crossmatched for 2 PRBC transfusions. 8. Mild decubitus ulcers. Wound Care has been consulted. cc: Manuel Martinez MD MTDD
[2018-10-25] MEDS: LIPOSYN 20% 250 ML IV SCH (19:32)
--- NOTE | 2018-10-25 20:25 | INFECTIOUS DISEASE PROGRESS NO ---
DATE: 10/25/2018 PRESENT ILLNESS: Ms. Richard has had enterococcal and fungal urinary tract infections with leukocytosis. She is status post laparoscopic surgery on the right with removal of numerous renal stones. Yesterday, she had a cystoscopy with replacement of the right ureteral stent for gross hematuria and hydronephrosis. MEDICATIONS: She is receiving Zosyn 3.375 g IV every 6 hours, Zyvox 600 mg IV every 12 hours, and micafungin 100 mg IV every 24 hours. There is also Gyne-lotrimin vaginal cream at bedtime, which she has been taking intermittently. PHYSICAL EXAMINATION: Vital Signs: Temperature is 97.8 degrees, pulse rate 103, respiratory rate 16, blood pressure 154/61, O2 saturation is 99% on 3 L nasal cannula. General: This is a chronically ill-appearing, elderly female. She is sitting up in a chair, currently in no acute distress. HEENT: Atraumatic, normocephalic. Oral mucous membranes are pink and moist. Conjunctivae are pale. Neck: Supple. Trachea is midline. Cardiovascular: Heart rate is regular. Respiratory: Lung sounds are clear to auscultation bilaterally, diminished in the bases. No work of breathing is noted. Abdomen: Soft, distended, and nontender. Bowel sounds are active. The incision to the right flank is visualized and it is a small 1/2-inch size incision, which is clean and no active bleeding is noted. However, there is a good amount of bloody drainage on the dressing which is reinforced. Neurologic: She is awake, alert, oriented, and able to stand and walk with assistance and with a walker. LABORATORY AND X-RAY: Today, her white count is 26.62, hemoglobin 6.7, platelet count 476,000. Creatinine is 1.1, GFR 48. No imaging reports today. ASSESSMENT AND PLAN: Ms. Richard has had two urological surgeries with enterococcal and fungal urinary tract infections and a leukocytosis. Unfortunately, she continues to have complications and is not showing much improvement. At this point, we will go ahead and stop the Zosyn and replace it with meropenem 2 g IV every 8 hours. We will continue the Zyvox and micafungin as ordered over the weekend, and recheck labs on Sunday to see how she responds. These plans have been discussed with and recommended by Dr. Luis. COMORBIDITIES: For Ms. Richard include that she is elderly and postoperative two urologic procedures, with history of pulmonary emboli, on chronic anticoagulation, recurrent urinary tract infections, and deconditioning. Dictated by JASON Jewell for Konrad Luis MD cc: Konrad Luis MD MTDD
--- NOTE | 2018-10-25 20:59 | PROGRESS NOTE ---
DATE: 10/25/2018 SUBJECTIVE: Ms. Richard states she is feeling the same. Her daughter is concerned about Ms. Richard being confused. She has had several bowel movements. She has ambulated and getting out of the chair. OBJECTIVE: Vital Signs: Temperature 97.8 degrees, pulse 100, BP 148/57. Urine output was recorded in the amount of 1250 mL. General: No acute distress. Abdomen: Nontender, nondistended. : Alberto catheter draining light pink urine without clots. BEN drain side has serosanguineous discharge on the dressing. PERTINENT LABS: White cell count is 26,000, hematocrit is 21. Creatinine is 1.1. ASSESSMENT AND PLAN: A 78-year-old female who has ileus after right robotic assisted laparoscopic pyeloplasty, which appears to be resolving. She has had a delayed bleed after being started on anticoagulation, with a significant amount of clots within her renal pelvis and the ureter as well as a perirenal hematoma. She is day 1 after ureteroscopy with stent replacement and retrograde pyelogram. Her Philippe drain was removed at the conclusion of the case. From the urologic standpoint, her urine has cleared up significantly. I have explained to the patient and her daughter that she will need to keep her stent in for 4 weeks, at which point I will reimage her with CT scan prior to removing it to make sure that the blood clots within the renal pelvis are gone. I would not resume her anticoagulation for a couple more days since she has had anemia requiring blood transfusions. I have discussed with the patient and her daughter that as soon as she is more ambulatory, hopefully by tomorrow, we can get rid of the Alberto catheter as to decrease the chance of catheter associated urinary tract infection while she is in the hospital. PLAN: 1. Okay to remove Alberto catheter when okay with primary team. If patient is ambulatory tomorrow, it would be a great idea. 2. She will keep the stent in for 4 weeks. 3. I will follow while she is in the hospital. cc: Wai Monge MD
[2018-10-26] MEDS: MIRALAX PO SCH ×3 (00:27→20:17)
[2018-10-26] MEDS: GYNE-LOTRIMIN VAGINAL CREAM VAG SCH ×2 (00:28→20:17)
[2018-10-26] MEDS: HUMULIN R SUBQ SCH ×5 (00:29→22:27)
[2018-10-26] MEDS: ZYVOX 600 MG/D5W 600 MG/300 ML IVPB IV SCH ×2 (02:08→22:27)
[2018-10-26] MEDS: MERREM 2 GM in NS 50 ML IV SCH ×2 (05:12→12:34)
[2018-10-26] MEDS ORDERED: INSULIN PEN NEEDLES ONE (06:23)
[2018-10-26] MEDS: PROTONIX IV SCH ×2 (06:26→18:33)
[2018-10-26] MEDS: SYNTHROID IV SCH (06:26)
[2018-10-26 07:53] LABS: HEMATOCRIT 27.3 % (37.0-47.0); MCH 29.1 PG (27-31); MCV 88.3 FL (81-99); MPV 10.5 FL (7.4-10.4); RBC 3.09 XMIL (4.2-5.4); RDW 14.8 % (11.5-14.5); WBC 24.35 X1000 (4.8-10.8)
[2018-10-26 08:04] LABS: AGAP 15; ALBUMIN 2.3 g/dL (3.5-5.0); BUN 23 mg/dL (8-22); CALCIUM 7.9 mg/dL (8.8-10.2); CHLORIDE 96 mmol/L (98-107); COSMO 280; CREATININE 0.8 mg/dL (0.5-0.9); ESTIMATED GFR > 60; GLUCOSE 206 mg/dL (70-104); PHOSPHORUS 2.6 mg/dL (2.7-4.5); POTASSIUM 4.4 mmol/L (3.5-5.1); SODIUM 135 mmol/L (136-145); TCO2 24 mmol/L (25-35)
[2018-10-26] MEDS: DULCOLAX PR SCH (09:01)
[2018-10-26] MEDS: LEVEMIR SUBQ SCH (09:06)
[2018-10-26] MEDS: LOVENOX SUBQ SCH ×2 (09:08→22:27)
[2018-10-26] MEDS: CLINIMIX E 4.25%-5% SOLUTION 1,000 ML IV SCH (09:16)
[2018-10-26] MEDS: MYCAMINE 100 MG in NS 100 ML IV SCH (09:16)
[2018-10-26] MEDS ORDERED: SODIUM PHOSPHATE 30 MEQ in NS 250 ML IV ONE (12:50)
--- NOTE | 2018-10-26 15:15 | PROGRESS NOTE ---
DATE: 10/26/2018 Ms. Richard is a 78-year-old white female who has required some urologic surgery. We were seeing her because of an ileus. Her abdomen remains distended, but she has had some bowel activity. She does not have an NG tube. Her heart rate is 94, blood pressure 166/63, O2 saturation 95%. She is afebrile. Her white blood cell count is 24, hematocrit is 27%. BUN and creatinine are 23 and 0.8. She is on a full liquid diet and is tolerating that. She has not been out of bed much, and we will try to increase her activity and advance her diet as tolerated. cc: Carin Griffith MD
--- NOTE | 2018-10-26 16:12 | PROGRESS NOTE ---
DATE: 10/26/2018 SUBJECTIVE: This morning Ms. Richard refers to be doing a lot better. The was at the bedside at the time of the encounter. Ms. Richard refers that she has been tolerating well her full liquid diet. OBJECTIVE: Vital signs: Blood pressure is 175/71, pulse of 93, respirations 20, temperature 98.3 degrees. Patient is saturating 96% on nasal cannula. General exam: Ms. Richard is a 78-year-old female. She is in bed in no distress. HEENT: Mucosa is pink and moist. Anicteric. Acyanotic. Neck: Supple. Chest: Good air entry bilateral. There was no crepitations, no rhonchi. Cardiovascular: Regular rate and rhythm. GI/Abdomen: Soft, minimally distended, but nontender. There are some laparoscopic scars on the anterior abdominal wall. The right flank had some sterile dressing. ASH PIT WORKER: Patient is awake, alert and oriented. LABORATORY DATA: WBC is 24.5, hemoglobin is 9.0, platelet count of 429. Chemistry is reviewed. Creatinine is down to 0.8. Phosphorus is slightly low. CURRENT MEDICATIONS: The patient's current medications have all been reviewed. She is on meropenem, micafungin, and Zyvox. Infectious Disease is on board. ASSESSMENT: 1. Hydroureter secondary to intraureteral blood clots and perinephric hematoma. The patient is status post second urological intervention. All the clots seem to have been removed. She feels a lot better. 2. High-grade right ureteropelvic junction stenosis. The patient had a J-stent placed. 3. Nephrolithiasis noted. 4. Postoperative ileus, resolved. 5. History of antiphospholipid syndrome and pulmonary emboli. Anticoagulation has been restarted. 6. 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 The patient is on antimicrobial therapy. 7. Anemia secondary to acute blood loss. Hemoglobin and hematocrit have improved from 6.7 to 9.0 yesterday after 2 packed red blood cells transfusion. Patient is currently asymptomatic. 8. Mild decubitus ulcer. Wound Care is on board. PLAN: So, in general, I think Ms. Richard is doing a lot better. She has been up and moving with physical therapy; yesterday she did 20 feet. She still has a Alberto catheter which is draining urine, but it is still kind of bloody looking. We will potentially remove this tomorrow if it is okay with Urology. We will continue with the antimicrobial therapy. We will also replace his electrolyte abnormality, including the low phosphorus. cc: Manuel Martinez MD
[2018-10-26] MEDS: SODIUM CHLORIDE 0.9% INJ SCH (18:35)
[2018-10-26] MEDS: LIPOSYN 20% 250 ML IV SCH (22:27)
[2018-10-26] MEDS: MERREM 2 GM in NS 100 ML IV SCH (23:05)
[2018-10-27] MEDS: SYNTHROID IV SCH ×2 (05:55→06:02)
[2018-10-27] MEDS: PROTONIX IV SCH ×3 (05:55→19:00)
[2018-10-27] MEDS: HUMULIN R SUBQ SCH ×4 (05:56→21:00)
[2018-10-27] MEDS: MERREM 2 GM in NS 100 ML IV SCH ×2 (08:57→17:12)
[2018-10-27] MEDS: ZYVOX 600 MG/D5W 600 MG/300 ML IVPB IV SCH ×2 (09:05→21:04)
[2018-10-27] MEDS: BYSTOLIC PO SCH (09:06)
[2018-10-27] MEDS: DULCOLAX PR SCH (09:08)
[2018-10-27] MEDS: LEVEMIR SUBQ SCH (09:08)
[2018-10-27] MEDS: MIRALAX PO SCH (09:09)
[2018-10-27] MEDS: NORVASC PO SCH ×2 (09:09→21:04)
[2018-10-27] MEDS: MYCAMINE 100 MG in NS 100 ML IV SCH (10:50)
--- NOTE | 2018-10-27 13:52 | PROGRESS NOTE ---
DATE: 10/27/2018 Ms. Roslyn Richard is a 78-year-old white female who has had some urologic surgery during this hospitalization, and we were asked to see her because of an ileus. That ileus seems to be resolving. She is tolerating her diet and is having bowel activity. She wants her diet advanced, and we will do that. We will give her a regular diet. We will try to increase her activity as allowed. cc: Carin Griffith MD
--- NOTE | 2018-10-27 14:40 | PROGRESS NOTE ---
DATE: 10/27/2018 SUBJECTIVE: This morning, Ms. Richard refers to be doing okay. The and a family doctor friend was at the bedside at the time of the encounter. The had a lot of concerns about the fact that Ms. Richard has been bleeding a lot, especially at the site where the urological intervention occurred and where the BEN drain used to be. OBJECTIVE: Vital signs: Blood pressure 184/80, pulse of 103, respirations 21, temperature 97.8 degrees. The patient is saturating 94% on room air. General: Ms. Richard is a 78-year-old female. She is in bed, no distress. HEENT: Mucosa is pink and moist. Anicteric. Acyanotic. Neck: Supple. Chest: Good air entry bilateral. There were no crepitations, no rhonchi. Cardiovascular: Regular rate and rhythm. No murmurs, no rubs, no gallops. GI: Abdomen is soft, minimally distended, but nontender. There are some laparoscopic scars on the anterior abdominal wall. The right flank has a sterile dressing which was minimally soaked. ONLINE MERCHANDISING COORDINATOR: The patient was awake, alert, and oriented. LABORATORY DATA: None for today, but the patient's glucose was 132. ASSESSMENT: 1. Right perinephric hematoma with intraureteral blood clots. This has been all evacuated by a second intervention by Dr. Monge. High-grade right ureteropelvic junction stenosis. Patient is status post J- stent placement. 1. Nephrolithiasis, noted. 2. Postoperative ileus, resolved. 3. History of antiphospholipid syndrome and pulmonary emboli. The patient was on Xarelto at home. 4. 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 The patient is on antimicrobial therapy. 5. Anemia of acute blood loss. The patient is status post 2 PRBC transfusion. We will recheck on hemoglobin in the morning. 6. Mild decubitus ulcer. We will continue wound care. 7. Generalized weakness and deconditioning. Physical therapy is onboard. The patient was evaluated yesterday. She was able to do 70 feet with front wheel walker and contact guard assistance. 8. Continues bleeding at the BEN drain site. I think this is partially compounded by the fact that Ms. Richard is on full anticoagulation with Lovenox. We are going to hold that for a day or 2. I will put her on just a prophylactic dose, and it is because she has antiphospholipid syndrome and also had PE. She has lupus, so she is extremely procoagulant, so we will just do the prophylactic for now until the bleeding stops, then we will restart her on her oral Xarelto. I have explained this plan to Ms. Richard, the and doctor friend who was at the bedside. I have also explained to them that we are going to discontinue the Clinimix and lipid infusion since Ms. Richard is eating. We are going to advance her diet to GI soft today. We will continue to encourage Ms. Richard to continue with physical therapy. From Dr. Monge's notes on 10/25/2018, it appeared that he was okay with the Alberto catheter to be removed. I think at this point, we can remove it, and I will order for this Alberto catheter removal. cc: Manuel Martinez MD MTDD
[2018-10-27] MEDS: SODIUM CHLORIDE 0.9% INJ SCH (19:00)
[2018-10-27 19:12] LABS: HEMATOCRIT 29.6 % (37.0-47.0); HEMOGLOBIN 9.6 g/dL (12.0-16.0); MCH 28.6 PG (27-31); MCHC 32.4 g/dL (33-37); MCV 88.1 FL (81-99); MPV 10.2 FL (7.4-10.4); RBC 3.36 XMIL (4.2-5.4); RDW 14.8 % (11.5-14.5); WBC 26.83 X1000 (4.8-10.8)
[2018-10-27] MEDS: GYNE-LOTRIMIN VAGINAL CREAM VAG SCH (22:55)
[2018-10-28] MEDS: MERREM 2 GM in NS 100 ML IV SCH ×3 (00:43→16:05)
[2018-10-28] MEDS: HUMULIN R SUBQ SCH ×4 (06:55→21:52)
[2018-10-28] MEDS: PROTONIX IV SCH ×2 (06:55→19:11)
[2018-10-28] MEDS: SYNTHROID PO SCH (06:56)
[2018-10-28 07:12] LABS: HEMATOCRIT 29.8 % (37.0-47.0); HEMOGLOBIN 9.6 g/dL (12.0-16.0); MCH 28.3 PG (27-31); MCHC 32.2 g/dL (33-37); MCV 87.9 FL (81-99); MPV 10.6 FL (7.4-10.4); RBC 3.39 XMIL (4.2-5.4); RDW 14.7 % (11.5-14.5); WBC 22.64 X1000 (4.8-10.8)
[2018-10-28 07:31] LABS: AGAP 11; ALBUMIN 2.4 g/dL (3.5-5.0); BUN 19 mg/dL (8-22); CALCIUM 8.2 mg/dL (8.8-10.2); CHLORIDE 96 mmol/L (98-107); COSMO 267; CREATININE 0.8 mg/dL (0.5-0.9); ESTIMATED GFR > 60; GLUCOSE 135 mg/dL (70-104); PHOSPHORUS 2.7 mg/dL (2.7-4.5); POTASSIUM 4.5 mmol/L (3.5-5.1); SODIUM 131 mmol/L (136-145); TCO2 24 mmol/L (25-35)
--- NOTE | 2018-10-28 07:48 | GENERAL SURGERY PROGRESS NOTE ---
DATE: 10/28/2018 SUBJECTIVE: The patient seems to be doing okay. She has had more drainage, looks like a decompressing hematoma, at her Ran-Keller drain site. She is doing okay. She is having bowel movements and tolerating her diet. OBJECTIVE: Vital Signs: Patient is currently afebrile. Her vital signs are stable. General: No acute distress. HEENT: Normocephalic, atraumatic. Pupils equal, round, reactive to light. Mucous membranes moist. Oropharynx benign. Neck: Supple. Trachea midline. Cardiovascular: Regular rate and rhythm. Lungs: Grossly clear. Abdomen: Soft, appropriately tender. Right flank has some drainage from her old BEN drain site. Extremities: Moves all extremities. Neurologic: Grossly intact. Skin: No signs of jaundice. Vascular: All extremities perfused. LABORATORY: None this morning as of yet. Reviewed her labs from over the weekend. ASSESSMENT AND PLAN: A 78-year-old female with bowel obstruction. 1. Bowel obstruction. At this time seems to be improved, was likely more of an ileus. She is tolerating her GI soft diet and having bowel movements. So from a surgical point of view, I think she has improved from this. 2. Intra-abdominal hematoma. At this time, she is likely decompressing out of her Ran-Keller drain site. We will place an ostomy appliance over it for ease. We will continue to follow while she is in the hospital. cc: Rodney Torres MD
[2018-10-28] MEDS: BYSTOLIC PO SCH (08:47)
[2018-10-28] MEDS: NORVASC PO SCH ×2 (08:47→21:52)
[2018-10-28] MEDS: LOVENOX SUBQ SCH (08:51)
[2018-10-28] MEDS: LEVEMIR SUBQ SCH (08:54)
[2018-10-28] MEDS: MYCAMINE 100 MG in NS 100 ML IV SCH (10:15)
[2018-10-28] MEDS: ZYVOX 600 MG/D5W 600 MG/300 ML IVPB IV SCH (11:35)
--- NOTE | 2018-10-28 18:50 | PROGRESS NOTE ---
DATE: 10/28/2018 SUBJECTIVE: This morning Ms. Richard refers to be doing fairly okay. The daughter was at the bedside at the time of the encounter. No new complaints. OBJECTIVE: Vital signs: Blood pressure is 147/72, pulse of 87, respirations is 19, temperature 97.5 degrees, and the patient was saturating 94% on room air. General: Ms. Richard is a 78-year- old female. She was sitting up in the chair and was not in any distress. HEENT: Mucosa is pink and moist. Anicteric. Acyanotic. Neck: Supple. Chest: Clear to auscultation. Cardiovascular: Regular rate and rhythm. No murmurs. GI: Abdomen was soft, minimally distended, but nontender. Some few laparoscopic scars on the anterior abdominal wall. The left flank had an ostomy, 1 of those ostomy bags on the site where the BEN drain used to be, there was maybe about 10 mL of blood in there. STITCHER SPECIAL MACHINE: Patient is awake, alert, and oriented. There is no focal neurological deficit. LABORATORY DATA: The patient's hemoglobin is 9.6, which is fairly the same as yesterday. WBC is down to 22.6. Creatinine has normalized to 0.8. ASSESSMENT: 1. Right perinephric hematoma with intra-ureter blood clots. These clots have all been evacuated by Dr. Monge on the 2nd intervention. 2. High-grade right ureteropelvic junction stenosis. Patient is status post J-stent placement. 3. Nephrolithiasis noted. 4. Postoperative ileus resolved. 5. History of antiphospholipid syndrome and pulmonary emboli. The patient was on Xarelto at home. Postoperatively, he was started on Lovenox. Unfortunately, the patient has been bleeding so therapeutic Lovenox has been discontinued. She is currently only on prophylactic Lovenox. 6. 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 Patient is antimicrobial therapy. 7. Anemia of acute blood loss. The patient is status post 2 packed red blood cells transfusion. Hemoglobin and hematocrit is fairly stable. 8. Mild decubitus ulcer. Wound care is on board. 9. Generalized weakness and deconditioning. Physical therapy is on board. 10. Continued bleeding at the site of where the Ran-Keller drain used to be. Full anticoagulation with Lovenox has been discontinued. The patient's hemoglobin and hematocrit is stable. We will continue observing. cc: Manuel Martinez MD
[2018-10-28] MEDS: GYNE-LOTRIMIN VAGINAL CREAM VAG SCH (21:51)
[2018-10-29] MEDS: MERREM 2 GM in NS 100 ML IV SCH ×3 (00:37→16:35)
[2018-10-29] MEDS: HUMULIN R SUBQ SCH ×4 (06:13→22:53)
[2018-10-29] MEDS: SODIUM CHLORIDE 0.9% INJ SCH ×2 (06:31→17:35)
[2018-10-29] MEDS: PROTONIX IV SCH ×2 (06:31→17:35)
[2018-10-29] MEDS: SYNTHROID PO SCH (06:31)
--- NOTE | 2018-10-29 07:01 | INFECTIOUS DISEASE PROGRESS NO ---
DATE: 10/28/2018 PRESENT ILLNESS: The patient is status post pyloroplasty, which was complicated by a bleed. The patient also developed leukocytosis. MEDICATIONS: The patient currently is receiving Zyvox, meropenem, and micafungin. PHYSICAL EXAMINATION: Vital Signs: Temperature is 97.5 degrees, pulse 87, respirations 19, blood pressure is 147/72. General: Today, the patient looks much better than yesterday. She has some color in her face. She is more alert, and she seems to be in a better mood also. HEENT: No drainage noted from the nose or the ears. I did not see any white patches on her tongue. Neck: No pain with movement. Lungs: Clear to auscultation. Cardiovascular: Regular heart rate. Abdomen: Soft and nontender. In the right flank area, there is a drain in place and an ostomy bag collecting fluid. The fluid in the ostomy bag appears to be old blood. Neurologic: The patient is alert. She can move her extremities. There is no tremor. IMAGING AND LABORATORY DATA: CBC: The white count is down now to 22,640, hemoglobin is 9.6, and platelet count is 594,000. The patient's creatinine is 0.8. GFR is greater than 60. There is no new radiographic study for today. ASSESSMENT AND PLAN: The patient is, as mentioned above, status post pyloroplasty complicated by an internal bleed. Her white blood cell count is decreasing also. I have discontinued Zyvox and micafungin, and will continue with meropenem. COMORBIDITIES: The patient is elderly, and she is postoperative for two urologic procedures. She also has a history of pulmonary emboli. She is on chronic anticoagulation. She had recurrent urinary tract infections, and she also has deconditioning. cc: Konrad Luis MD
[2018-10-29 07:09] LABS: BASO# 0.07 X1000 (0.0-0.2); BASO% 0.3 % (0.0-0.8); EOS# 0.27 X1000 (0.0-0.7); EOS% 1.1 % (0.0-10.0); HEMATOCRIT 30.7 % (37.0-47.0); HEMOGLOBIN 9.5 g/dL (12.0-16.0); LYMPH# 1.94 X1000 (1.2-3.4); LYMPH% 7.6 % (20.5-51.1); MCH 28.4 PG (27-31); MCHC 30.9 g/dL (33-37); MCV 91.6 FL (81-99); MONO# 1.81 X1000 (0.11-0.59); MONO% 7.1 % (1.7-9.3); MPV 10.9 FL (7.4-10.4); NEUT# 21.42 X1000 (1.4-6.5); NEUT% 83.9 % (42.2-75.2); PLT 607 X1000 (130-400); RBC 3.35 XMIL (4.2-5.4); RDW 14.9 % (11.5-14.5); WBC 25.51 X1000 (4.8-10.8)
[2018-10-29] MEDS: BYSTOLIC PO SCH (08:10)
[2018-10-29] MEDS: NORVASC PO SCH ×2 (08:10→21:53)
[2018-10-29] MEDS: LOVENOX SUBQ SCH (08:11)
[2018-10-29] MEDS: LEVEMIR SUBQ SCH (08:12)
--- NOTE | 2018-10-29 11:21 | GENERAL SURGERY PROGRESS NOTE ---
DATE: 10/29/2018 SUBJECTIVE: The patient seems to be doing about the same. OBJECTIVE: Vital Signs: The patient is currently afebrile. Her vital signs are stable. General: No acute distress. HEENT: Normocephalic, atraumatic. Pupils equal, round, reactive to light. Mucous membranes moist. Oropharynx benign. Neck: Supple. Trachea midline. Cardiovascular: Regular rate and rhythm. Lungs: Grossly clear. Abdomen: Soft, nondistended. Bowel sounds auscultated. Extremities: Moves all extremities. Neurologic: Grossly intact. Skin: No signs of jaundice. Vascular: All extremities perfused. LABORATORY DATA: Reviewed from yesterday. Hematocrit is 29, platelet count 22,000. ASSESSMENT AND PLAN: A 78-year-old with bowel obstruction. 1. Bowel obstruction. At this time, essentially is resolved. From a surgical point of view, she is doing well. No new recommendations. 2. Intra-abdominal hematoma. At this time, continues to decompress either side. Will continue local wound care for it. cc: Rodney Torres MD
--- NOTE | 2018-10-29 15:47 | PROGRESS NOTE ---
DATE: 10/29/2018 SUBJECTIVE: This morning Ms. Richard refers to be doing a lot better. She denies any new complaints. She was sitting up and was having her breakfast at the time of the encounter. Her was at the bedside. OBJECTIVE: Vital signs: Blood pressure was 137/46, pulse of 78, respirations 24. Temperature is 97.4 degrees. The patient was saturating 98%. General: Ms. Richard is a 78-year-old female. She was sitting up in a chair. No distress. HEENT: Mucosa was pink and moist. Anicteric. Acyanotic. Neck: Supple. Chest: Clear. Cardiovascular: Regular rate and rhythm. Abdomen: Soft. There were a few laparoscopic scars on anterior abdominal wall. There was an ostomy bag over the incision site where the BEN drain used to be. There was some minimal blood in the bag. CHICKEN BUYER: Patient is awake, alert, and oriented. LABORATORY DATA: The patient's WBC is 25.51; hemoglobin is 9.6; platelet count is 607,000. Chemistry is also reviewed. Glucose is 127. ASSESSMENT: 1. Right perinephric hematoma with intra-ureter blood clots. This has been evacuated. 2. High-grade right ureteropelvic junction stenosis. The patient is status post J-stent placement. 3. Nephrolithiasis noted. 4. Postoperative ileus, resolved. 5. History of antiphospholipid syndrome and pulmonary emboli. The patient used to be on Xarelto; this has been on hold. She is currently on prophylactic Lovenox. 6. 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 The patient has been treated. She is still on meropenem. Infectious Disease is on board. White cell count slightly elevated today. 7. Anemia of acute blood loss. Patient is status post 2 PRBC transfusion. Hemoglobin and hematocrit are stable. 8. Generalized weakness and deconditioning. Patient is being seen by Physical Therapy. 9. Disposition. Pending rehab placement. cc: Manuel Martinez MD
--- NOTE | 2018-10-29 18:34 | PROGRESS NOTE ---
DATE: 10/29/2018 SUBJECTIVE: Ms. Richard states she is feeling better. She denies any flank pain or abdominal pain. She reports she had ambulated 3 times today. She has been able to void. She is not sure if the bloody drainage from her side has decreased in amount or not. It appears per record, that she has had 385 mL reported so far in a day, as opposed to 900 the day prior. OBJECTIVE: Vital Signs: Temperature 98 degrees, P 81, BP 152/59. General: No acute distress. Abdomen: Soft, nontender, and nondistended. Incisions are clean, dry, and intact in all port sites. BEN drain site has an ostomy bag collecting what appears to be bloody fluid. LABORATORY DATA: White cell count is 26,000, hematocrit 31. ASSESSMENT: A 78-year-old female with a ileana course after right robotic pyeloplasty and pyelolithotomy. She is slowly getting stronger and progressing. She denies current flank pain or abdominal pain. I have discussed with the patient that it is a great idea to keep the ostomy bag to the side for now to keep the fluid collecting and keep it from irritating her skin. She has voided without Alberto catheter without troubles. I have explained to her yet again, that her ureteral stent will stay for 4 to 6 weeks, and we will perform CT scan prior to removing the stent. PLAN: 1. No urologic intervention needed at this time. 2. I will follow her while in the hospital. 3. Once the drainage from the BEN drain site slows down, the appliance VAC can be removed. cc: Wai Monge MD
--- NOTE | 2018-10-29 19:31 | INFECTIOUS DISEASE PROGRESS NO ---
DATE: 10/29/2018 PRESENT ILLNESS: Ms. Richard is status post two separate laparoscopic urologic procedure and has a leukocytosis. There is also a vaginal candidiasis. MEDICATIONS: She is receiving meropenem 2 g IV every 8 hours and Gyne-Lotrimin vaginal cream at bedtime. PHYSICAL EXAMINATION: Vital Signs: Temperature is 97.4 degrees, pulse rate 78, respiratory rate 24, blood pressure 137/46. O2 saturation is 93% on room air. General: This is a chronically ill- appearing, elderly female. She is sitting up in a chair currently, in no acute distress. HEENT: Atraumatic, normocephalic. Oral mucous membranes are pink and moist. Conjunctivae are pale. Neck: Supple. Trachea is midline. Cardiovascular: Heart rate is regular. Respiratory: Lung sounds are clear to auscultation bilaterally. No work of breathing is noted. Abdomen: Soft, round, and tender to the right flank area where there is an incision with a dry and intact dressing in place, as well as an ostomy bag to collect fluid from that site. That fluid has a sanguineous appearance. Neurologic: She is awake, alert, and oriented. Able to move around in the chair independently. LABORATORY AND X-RAY: Today, her white count is 25.51, hemoglobin 9.5, platelet count 607,000. No check of electrolytes today and no imaging reports. ASSESSMENT AND PLAN: Ms. Richard is status post two urological laparoscopic procedures with a persistent leukocytosis. She has also had several complications including hemorrhaging and bowel obstruction. These both seem to have resolved at this point. For now, we are providing meropenem as a single agent, which we will continue. She also has vaginal yeast and we will continue to provide Gyne-Lotrimin for that. These plans have been discussed with and recommended by Dr. Luis. COMORBIDITIES: For Ms. Richard include that she is elderly with antiphospholipid syndrome, pulmonary emboli, on chronic anticoagulation, recurrent urinary tract infections, and deconditioning due to prolonged hospitalization. Dictated by JASON Jewell for Konrad Luis MD cc: Konrad Luis MD [facility]
[2018-10-29] MEDS: GYNE-LOTRIMIN VAGINAL CREAM VAG SCH (21:52)
[2018-10-30] MEDS: MERREM 2 GM in NS 100 ML IV SCH ×5 (01:00→19:11)
--- NOTE | 2018-10-30 06:32 | GENERAL SURGERY PROGRESS NOTE ---
DATE: 10/30/2018 SUBJECTIVE: Patient seems to be doing about the same. OBJECTIVE: Vital Signs: Patient is currently afebrile. Vital signs stable. General: No acute distress. HEENT: Normocephalic, atraumatic. Pupils equal, round, reactive to light. Mucous membranes moist. Oropharynx benign. Neck: Supple trachea midline. Cardiovascular: Regular. Rate and rhythm. Lungs: Grossly clear. Abdomen: Soft, nondistended. Bowel sounds auscultated. Ostomy appliance to right flank draining what looks like old blood. Extremities: Moves all extremities. Neurologic: Grossly intact. Skin: No signs of jaundice. Vascular: All extremities perfused. LABORATORY DATA: Reviewed from yesterday. White blood cell count is slightly elevated at 25, hematocrit 30, platelet count 607,000. ASSESSMENT AND PLAN: A 78-year-old female with bowel obstruction. 1. Bowel obstruction. At this time has essentially resolved. We will continue to follow while she is in the hospital. 2. Intra-abdominal hematoma. At this time, continue decompress from the right side. We will continue to follow her and continue local wound care. cc: Rodney Torres MD
[2018-10-30 07:14] LABS: AGAP 11; ALBUMIN 2.5 g/dL (3.5-5.0); BUN 21 mg/dL (8-22); CALCIUM 8.5 mg/dL (8.8-10.2); CHLORIDE 99 mmol/L (98-107); COSMO 273; CREATININE 0.8 mg/dL (0.5-0.9); ESTIMATED GFR > 60; GLUCOSE 91 mg/dL (70-104); PHOSPHORUS 2.8 mg/dL (2.7-4.5); POTASSIUM 4.4 mmol/L (3.5-5.1); SODIUM 135 mmol/L (136-145); TCO2 25 mmol/L (25-35)
[2018-10-30] MEDS: HUMULIN R SUBQ SCH ×4 (07:19→20:27)
[2018-10-30] MEDS: SYNTHROID PO SCH (07:19)
[2018-10-30] MEDS: PROTONIX IV SCH ×2 (07:19→18:17)
[2018-10-30 07:22] LABS: HEMATOCRIT 28.8 % (37.0-47.0); HEMOGLOBIN 8.9 g/dL (12.0-16.0); MCH 28.3 PG (27-31); MCHC 30.9 g/dL (33-37); MCV 91.7 FL (81-99); MPV 10.5 FL (7.4-10.4); RBC 3.14 XMIL (4.2-5.4); RDW 15.2 % (11.5-14.5); WBC 22.03 X1000 (4.8-10.8)
[2018-10-30] MEDS: BYSTOLIC PO SCH (09:41)
[2018-10-30] MEDS: NORVASC PO SCH ×2 (09:41→20:27)
[2018-10-30] MEDS: LOVENOX SUBQ SCH (09:42)
[2018-10-30] MEDS: LEVEMIR SUBQ SCH (09:43)
--- NOTE | 2018-10-30 13:06 | PROGRESS NOTE ---
DATE: 10/30/2018 SUBJECTIVE: This morning, Ms. Richard refers to be doing a lot better. She was actually sitting up in a chair. The daughter was at the bedside. When I went in to see her, Dr. Monge was also almost rounding up his visit with them. OBJECTIVE: Vital Signs: Blood pressure is 146/58, pulse of 83, respirations are 19, temperature is 98.0 degrees. General Examination: Ms. Richard is a 78-year-old, female. She was sitting up in a chair. No distress. HEENT: Mucosa was pink and moist. Anicteric. Acyanotic. Neck: Supple. Chest: Good air entry bilaterally. There were no crepitations. No rhonchi. Cardiovascular: Regular rate and rhythm. No murmurs, no rubs, no gallops. GI: Abdomen is soft. Distended but nontender. Bowel sounds present. There is an ostomy bag over where the BEN drain was. There is some minimal bloody drainage in the bag. [employer]OR [employer]: The patient is awake, alert, and oriented. Laboratory Data: This morning, WBC is down to 22.02, hemoglobin is 8.9, platelet count of 719,000. Chemistry is also reviewed and completely normal. ASSESSMENT: 1. Right perinephric hematoma with intraureteral blood clots. These have all been evacuated during surgery. There was also intra-abdominal hematoma which has spontaneously decompressed. 2. High-grade right ureteropelvic junction stenosis. The patient is status post right robotic- assisted laparoscopic pyeloplasty, pyelolithotomy with numerous renal stone removal, and placement of a ureteral stent. The initial surgery was actually done on 10/16/2018. 3. Postoperative ileus, improved. 4. 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 Patient is on antimicrobial coverage. Infectious disease is on board. 5. Anemia of acute blood loss. Patient is status post 2 units of packed red blood cell transfusion. Hemoglobin and hematocrit are stable. 6. Generalized weakness and deconditioning. Physical therapy is on board and there is a plan for transfer to [facility] hopefully tomorrow. 7. History of antiphospholipid syndrome and pulmonary emboli. The patient was on Xarelto prior to hospitalization. During the hospital course, the patient developed multiple bleeding complications with hematoma so anticoagulation was withheld. She seems to be now stable to resume her anticoagulation. We will start her back on her Xarelto and re- evaluate her in the morning. If she remains stable, she will okay to go home on that. The patient follows up with Dr. Marr on this. 8. Acute kidney injury during the hospital course, resolved. PLAN: In general, Ms. Richard has been in the hospital for 20 days, a very complicated recovery after a urological initial intervention. Postoperatively, she developed some postoperative ileus and also had some intra-abdominal and intraureteral bleeding /clots issues. These have all been resolved and she seems to be progressively getting better. She has been accepted to go to [facility] for rehab. We are going to start her on oral anticoagulation today. If she remains stable and no major bleeding, I think she will be okay to go to the rehab tomorrow with a repeat of her CBC in about a week. cc: Manuel Martinez MD MTDD
[2018-10-30] MEDS ORDERED: MERREM 2 GM in NS 50 ML IV SCH ×4 (16:30)
[2018-10-30] MEDS ORDERED: INVANZ 1 GM/NS 1 GM/50 ML IVPB IV SCH (17:00)
[2018-10-30] MEDS: SODIUM CHLORIDE 0.9% INJ SCH (18:18)
[2018-10-30] MEDS: XARELTO PO SCH (18:19)
[2018-10-30] MEDS ORDERED: MERREM 2 GM in NS 100 ML IV SCH (18:40)
[2018-10-30] MEDS: GYNE-LOTRIMIN VAGINAL CREAM VAG SCH (20:29)
--- NOTE | 2018-10-30 21:04 | INFECTIOUS DISEASE PROGRESS NO ---
DATE: 10/30/2018 PRESENT ILLNESS: Ms. Richard is status post laparoscopic urologic procedures x2 and has a persistent leukocytosis. We have been treating her for recurrent urinary tract infections as well as a vaginal candidiasis. MEDICATIONS: She is on meropenem 2 g IV every 8 hours as well as Gyne-Lotrimin vaginal cream at bedtime. PHYSICAL EXAMINATION: Vital Signs: Temperature is 98.4 degrees, pulse rate 77, respiratory rate 19, blood pressure 154/61. O2 saturation is 93% on room air. General: This is a chronically ill- appearing, elderly female. She is sitting up on the side of the bed currently in no acute distress. HEENT: Atraumatic, normocephalic. Oral mucous membranes are pink and moist. Conjunctivae are pale. Neck: Supple. Trachea is midline. Respiratory: Lung sounds are clear to auscultation bilaterally. Diminished in the bases. No work of breathing is noted. Cardiovascular: Heart rate is regular. Abdomen: Soft, round and tender to the right flank. There is an incision with an ostomy bag in place for fluid collection which has a small amount of bloody drainage noted. Neurologic: She is awake, alert, oriented, and able to ambulate with assistance. LABORATORY AND X-RAY: Today her white count is 22.03, hemoglobin 8.9, platelet count [id number]. Creatinine is 0.8. Estimated GFR is greater than 60. ASSESSMENT AND PLAN: Ms. Richard is being treated for persistent leukocytosis status post laparoscopic urological procedures and urinary tract infections. She has been receiving meropenem which we will continue at this time. The plan is for her to possibly be discharged to rehab soon, so orders have been written out for her to have meropenem 2 g IV every 12 hours for a total of 2 weeks after which time we will see her in the office. She will also continue the Gyne-Lotrimin for vaginal yeast while on the meropenem. While in the hospital, we will continue the meropenem on an every 8 hour schedule. We will repeat labs in the morning. These plans have been discussed with and recommended by Dr. Luis. COMORBIDITIES: For Ms. Richard include that she is elderly with antiphospholipid syndrome, pulmonary emboli, chronic anticoagulation, recurrent urinary tract infections and deconditioning due to prolonged hospitalization. Dictated by JASON Jewell for MD Kuldeep Graham#: [id number] cc: Konrad Luis MD [facility]
[2018-10-31] MEDS: MERREM 2 GM in NS 100 ML IV SCH ×3 (02:34→18:37)
[2018-10-31] MEDS: HUMULIN R SUBQ SCH ×4 (06:24→21:16)
[2018-10-31] MEDS: PROTONIX IV SCH ×2 (06:29→18:37)
[2018-10-31] MEDS: SYNTHROID PO SCH (06:30)
--- NOTE | 2018-10-31 06:33 | Diag Imaging Result Doc PS360 ---
CT ABDOMEN/PELVIS W/O CONTRAST - 10/31/2018 INDICATION: follow up intra-abdominal hematoma COMPARISON: 10/23/2018 FINDINGS: There is a small to moderate right basilar pleural effusion. There is a small amount of infiltrate in the right lung base. The left lung remains clear. There is right hemidiaphragm elevation. There has been significant enlargement of the right subcapsular liver fluid collection. This now measures 18 x 7 cm axially. There is a right nephroureteral stent. The upper end of the stent is coiled, this is likely in the proximal ureter not in the renal pelvis. There has been significant improvement in the large amount of clot in the right renal pelvis. There may be a small amount remaining. There is also small amount of remaining clot and fluid in the right anterior pararenal space, but again significantly improved. There are a few stones in the left renal pelvis. No obvious bowel obstruction or inflammation. There is moderate flank edema. IMPRESSION: 1. Increase in size of the subcapsular liver fluid collection. This could be drained by CT guidance if desired. 2. Increasing right basilar pleural effusion. Right basilar infiltrate, nonspecific. 3. Significant improvement in the right renal collecting system. This exam was performed using automated exposure control, adjustment of mA or kV according to patient size, and/or use of iterative reconstruction technique Electronically signed by Abiel Jimenez 10/31/2018 6:30 AM
[2018-10-31 07:30] LABS: HEMATOCRIT 29.2 % (37.0-47.0); MCH 28.4 PG (27-31); MCHC 30.8 g/dL (33-37); MCV 92.1 FL (81-99); MPV 10.5 FL (7.4-10.4); PLT 780 X1000 (130-400); RBC 3.17 XMIL (4.2-5.4); RDW 15.2 % (11.5-14.5)
[2018-10-31 07:50] LABS: AGAP 13; ALBUMIN 2.4 g/dL (3.5-5.0); BUN 20 mg/dL (8-22); CALCIUM 8.7 mg/dL (8.8-10.2); CHLORIDE 101 mmol/L (98-107); COSMO 278; CREATININE 0.9 mg/dL (0.5-0.9); ESTIMATED GFR > 60; GLUCOSE 98 mg/dL (70-104); PHOSPHORUS 2.6 mg/dL (2.7-4.5); POTASSIUM 3.9 mmol/L (3.5-5.1); SODIUM 138 mmol/L (136-145); TCO2 24 mmol/L (25-35)
--- NOTE | 2018-10-31 08:41 | GENERAL SURGERY PROGRESS NOTE ---
DATE: 10/31/2018 SUBJECTIVE: Patient is doing okay. Family is concerned about the amount of drainage coming out of her drain site. They are requesting a CT scan. Otherwise, she seems to be doing about the same. OBJECTIVE: Vital Signs: Patient is currently afebrile. Her vital signs are stable. General Exam: No acute distress. HEENT: Normocephalic, atraumatic. Pupils equal, round, reactive to light. Mucous membranes moist. Oropharynx benign. Neck: Supple. Trachea midline. Cardiovascular: Regular rate and rhythm. Lungs: Grossly clear. Abdomen: Soft, nontender, nondistended. Bowel sounds auscultated. Ostomy appliance in the right flank, draining what looks like old blood. Extremities: Moves all extremities. Neurologic: Grossly intact. Skin: No signs of jaundice. Vascular: All extremities perfused. LABORATORY: Reviewed from yesterday. ASSESSMENT AND PLAN: A 78-year-old female with bowel obstruction. 1. Bowel obstruction at this time is essentially resolved. We will continue while in the hospital. 2. Intra-abdominal hematoma. At this time, it looks like she is decompressing old hematoma on the right side. Discussed this extensively with the family and the at the bedside. They are requesting a CT scan to evaluate intra-abdominal hematoma. This is not necessarily unreasonable. We could see how much is decompressed, but at this point would recommend discontinue monitor, but will get the CT scan. cc: Rodney Torres MD
[2018-10-31] MEDS ORDERED: INSULIN PEN NEEDLES ONE (08:43)
[2018-10-31 08:48] LABS: LYMPHS 18 % (21-51); MONO 2 % (1-9); SEGS 80 % (42-75)
[2018-10-31] MEDS: BYSTOLIC PO SCH (08:48)
[2018-10-31] MEDS: LEVEMIR SUBQ SCH (08:48)
[2018-10-31] MEDS: NORVASC PO SCH ×2 (08:48→21:17)
--- NOTE | 2018-10-31 13:31 | PROGRESS NOTE ---
DATE: 10/31/2018 SUBJECTIVE: This patient is lying comfortably in bed. Her daughter and are at the bedside. She has an ostomy appliance in the right flank, draining some old blood. CT scan today showed an increase in size of the subcapsular liver fluid collection, and also showed an increasing right basilar pleural effusion. Case has been discussed with Surgery Department, Dr. Torres. Also has been discussed with Radiology Department and Dr. Marr from Hematology/Oncology Department. For now, I will ask for a CT-guided fluid removal of those areas. I am holding the Lovenox, which was given yesterday night. I will continue with the same management. OBJECTIVE: Vital Signs: Temperature 98.3 degrees, pulse 83, respiratory rate 20, blood pressure 141/59, oxygen saturation 95% on room air. HEENT: Head normocephalic. No trauma. PERRLA. Neck: Supple. No JVD. No masses. Central trachea. Chest: Decreased breath sounds at the right base with some crackles. Abdomen: Soft. Generalized tenderness to palpation, mostly on the right side. She has an ostomy appliance in the right flank, draining some blood, which for me looks old. It is not bright red. Extremities: No edema, no clubbing, no cyanosis. Neurological: The patient is alert. She is oriented x3. She moves all 4 extremities. LABORATORY DATA: WBC 20, hemoglobin 9, hematocrit 29.2, platelets 780,000. Sodium 138, potassium 3.9, chloride 101, bicarbonate 24, BUN 20, creatinine 0.9, glucose 195, calcium 8.7. Albumin 2.4. ASSESSMENT AND PLAN: 1. Right perinephric hematoma with intraureteral blood clots. These have all been evacuated during surgery. CT scan showed also an increase in size of the subcapsular liver fluid collection. Also increased right basilar pleural effusion, right basilar infiltrate which is nonspecific, and significant improvement in the right renal collecting system. Case has been discussed with Surgery Department, Radiology Department, and Hematology/Oncology Department. I will ask for a CT-guided fluid removal from those area. I will hold the Xarelto today, and I will restart it after the procedure. I also discussed the case with the family, and they agree with this. I told the family that we can just monitor this, and do some CT scans as an outpatient, but they have decided to go ahead and do the procedure right away during this hospitalization. 2. High-grade right ureteropelvic junction stenosis. This patient is status post right robotic- assisted laparoscopic pyeloplasty, pyelolithotomy with numerous renal stone removal, and placement of a ureteral stent. The initial surgery was on 10/16/2018. 3. Postoperative ileus, improved. 4. 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 Continue with antimicrobial coverage by Infectious Disease Department. 5. Anemia of acute blood loss. The patient is status post 3 units of packed red blood cells. Hemoglobin and hematocrit have been stable. 6. Generalized weakness and physical deconditioning. Physical Therapy on board. The plan is to send this patient to a rehabilitation center, [facility]. 7. History of antiphospholipid syndrome and pulmonary emboli. This patient has been on Xarelto prior to this hospitalization. During the hospital course, the patient developed multiple bleeding complications with hematoma, so anticoagulation was withheld. Now, it looks like she improved, so has been started back on Xarelto, but I will hold it today because tomorrow hopefully, we will do a CT-guided fluid removal. Case has been discussed with Dr. Marr. 8. Acute kidney injury, resolved. 9. Right abdominal area fistula, which is draining some blood. There is an ostomy appliance in that area. I will continue just to monitor. cc: Luis Hidalgo MD MTDD
[2018-10-31] MEDS: SODIUM CHLORIDE 0.9% INJ SCH (18:37)
[2018-10-31] MEDS: GYNE-LOTRIMIN VAGINAL CREAM VAG SCH (21:20)
[2018-11-01] MEDS: MERREM 2 GM in NS 100 ML IV SCH ×3 (04:28→18:45)
[2018-11-01] MEDS: HUMULIN R SUBQ SCH ×4 (06:03→21:09)
[2018-11-01] MEDS: PROTONIX IV SCH ×2 (06:11→18:45)
[2018-11-01] MEDS: SYNTHROID PO SCH (06:11)
--- NOTE | 2018-11-01 06:12 | GENERAL SURGERY PROGRESS NOTE ---
DATE: 11/01/2018 SUBJECTIVE: Patient seems to be doing okay. I reviewed the CT scan. The hematoma seems to be resolved, but she does have fluid around her liver which she is on the schedule to have a CT- guided drainage. Otherwise, she is doing about the same although she had some blood in her urine. OBJECTIVE: Vital Signs: Patient is currently afebrile. Her vital signs are stable. General: No acute distress. HEENT: Normocephalic, atraumatic. Pupils equal, round, and reactive to light. Mucous membranes moist. Oropharynx benign. Neck: Supple. Trachea midline. Cardiovascular: Regular rate and rhythm. Lungs: Grossly clear. Abdomen: Soft. Appropriately tender. Extremities: Moves all extremities. Neurologic: Grossly intact. Skin: No signs of jaundice. Vascular: All extremities perfused. LABORATORY: Reviewed from yesterday. Hematocrit is stable. ASSESSMENT/PLAN: 1. A 78-year-old female with bowel obstruction. Bowel obstruction at this time essentially resolved. We will continue to follow. 2. Intra-abdominal hematoma. At this time, the CT scan shows that it is overall decreased in size. 3. Perihepatic fluid collection. At this time, being scheduled to be drained by Radiology. 4. Hematuria. At this point, we will ask Urology to evaluate. Unsure that this is abnormal given her stent, but the duration of symptoms may need to be investigated. cc: Rodney Torres MD
[2018-11-01] MEDS: DILAUDID IV PRN ×2 (08:20→14:14)
[2018-11-01 08:39] LABS: AGAP 11; BUN 20 mg/dL (8-22); CHLORIDE 100 mmol/L (98-107); COSMO 273; CREATININE 0.8 mg/dL (0.5-0.9); ESTIMATED GFR > 60; GLUCOSE 72 mg/dL (70-104); POTASSIUM 3.9 mmol/L (3.5-5.1); SODIUM 136 mmol/L (136-145); TCO2 25 mmol/L (25-35)
[2018-11-01 08:46] LABS: BASO% 0.5 % (0.0-0.8); HEMATOCRIT 28.1 % (37.0-47.0); HEMOGLOBIN 8.5 g/dL (12.0-16.0); LYMPH# 1.87 X1000 (1.2-3.4); LYMPH% 9.9 % (20.5-51.1); MCH 27.7 PG (27-31); MCHC 30.2 g/dL (33-37); MCV 91.5 FL (81-99); MONO# 1.62 X1000 (0.11-0.59); MONO% 8.5 % (1.7-9.3); MPV 10.6 FL (7.4-10.4); PLT 788 X1000 (130-400); RBC 3.07 XMIL (4.2-5.4); RDW 15.2 % (11.5-14.5); WBC 18.98 X1000 (4.8-10.8)
[2018-11-01 09:02] LABS: BANDS 4 % (0-1); HYPOCHROM 1+; LARGE PLATELETS 1+; LYMPHS 6 % (21-51); MONO 6 % (1-9); SEGS 82 % (42-75)
--- NOTE | 2018-11-01 10:09 | PROGRESS NOTE ---
DATE: 11/01/2018 SUBJECTIVE: The patient is lying comfortably in bed. Her is at the bedside. She has an ostomy appliance in the right flank. She is still draining some old blood. She is scheduled to get a CT-guided fluid removal from the subcapsular liver fluid collection, and probably right pleural effusion. OBJECTIVE: Vital Signs: Temperature 97.8 degrees, pulse 80, respiratory rate 20, blood pressure 142/54, and oxygen saturation 100% on room air. HEENT: Head normocephalic. No trauma. PERRLA. Neck: Supple. No JVD. No masses. Central trachea. Chest: Decreased breath sounds at the bases at the right base with some crackles. Abdomen: Soft. Generalized tenderness to palpation, but mostly on the right side. She has an ostomy appliance in the right flank, draining some old blood. It is not bright red. Extremities: No edema. No clubbing. No cyanosis. Neurological: The patient is alert. She is oriented x3. No focal deficits. LABORATORY: Pending lab work at this moment. ASSESSMENT AND PLAN: 1. Right perinephric hematoma with intraureteral blood clots. This has been evaluated during surgery. CT scan showed also an increase in size of the subcapsular liver fluid collection. Also increase in the right basilar pleural effusion, right basilar infiltrate which is nonspecific, and significant improvement of the right renal collecting system. Case has been discussed with Surgery Department, Radiology Department, and Hematology/Oncology Department. She will have hopefully today a CT guided fluid removal from those areas. Xarelto has been held already, and we will restart that after the procedure. Also, I discussed the case with the family and they agreed with this. I offered the possibility of just monitoring this as an outpatient with serial CT scans, but they have decided to go ahead and do the procedure. I explained to them all the risk and benefits of the intervention. 2. High-grade right ureteropelvic junction stenosis. This patient is status post right robotic assisted laparoscopic pyeloplasty, with numerous renal stone removal, and placement of an ureteral stent. The initial surgery was on 10/16/2018. 3. Postoperative ileus, improved. 4. 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 Continue with antimicrobial coverage by Infectious Disease Department. 5. Anemia of acute blood loss, status post 3 PRBC's. Hemoglobin and hematocrit has been stable. Pending lab work today. 6. Generalized weakness and physical deconditioning. Physical Therapy on board. The plan is to send this patient to a rehab center. 7. History of antiphospholipid syndrome and pulmonary emboli. This patient has been placed on Xarelto, and she was getting Xarelto prior to this hospitalization. 8. Acute kidney injury, resolved. 9. Right abdominal area fistula, which is draining some old blood. There is an ostomy appliance in that area. I will continue just to monitor. cc: Luis Hidalgo MD MTDD
--- NOTE | 2018-11-01 11:03 | Diag Imaging Result Doc PS360 ---
EXAM: CT GUIDE ABD DRAINAGE W/CATH INDICATION: Subcapsular liver fluid collection TECHNIQUE: COMPARISON: 10/31/2018 FINDINGS: Risks, benefits, and alternatives were discussed with the patient and informed consent was obtained. The patient was placed in a supine position and was prepped and draped in sterile fashion. Local anesthesia was achieved with 1% lidocaine solution. Using CT guidance, a 10-Canadian pigtail drainage catheter was inserted in the subcapsular perihepatic fluid collection seen on the previous CT using an anterior approach. 30 mL of dark brown fluid was then aspirated. The tube was secured with a catheter dressing and was attached to an accordion drain. There were no known complications. IMPRESSION: Technically successful CT-guided subcapsular fluid collection drainage and pigtail catheter placement. Electronically signed by Jagdeep Patton 11/01/2018 11:01 AM
--- NOTE | 2018-11-01 12:07 | Diag Imaging Result Doc PS360 ---
EXAM: CHEST-2 VIEWS 11/01/2018 HISTORY: POST THORA INSPIR/EXPIR TECHNIQUE: Inspiratory expiratory chest COMMENT: There is no evidence of pneumothorax. The atelectasis which was present on the previous study of 10/21/2018 over the right base has diminished. There is still some pleural fluid with blunting of the costophrenic angle laterally. IMPRESSION: No evidence of pneumothorax following thoracentesis. Electronically signed by Raúl Coburn 11/01/2018 12:04 PM
--- NOTE | 2018-11-01 12:19 | Diag Imaging Result Doc PS360 ---
EXAM: US THORACENTESIS W/IMAGE GUIDE 11/01/2018 HISTORY: pleural effusion TECHNIQUE: Ultrasound-guided thoracentesis COMMENT: The risks and benefits of the procedure were discussed with the patient including the possibility of bleeding, infection, pneumothorax or reaction to lidocaine. She agreed to the procedure. Following sterile preparation the skin posteriorly over the right chest and administration 1% lidocaine to the skin and deeper soft tissues, the thoracentesis catheter was placed and subsequently 600 mL of dark mauricio fluid was drained. This was sent to the laboratory in its entirety. There are no immediate complications. IMPRESSION: Successful right ultrasound-guided thoracentesis. Electronically signed by Raúl Coburn 11/01/2018 12:17 PM
[2018-11-01] MEDS: BYSTOLIC PO SCH (12:37)
[2018-11-01] MEDS: LEVEMIR SUBQ SCH (12:37)
[2018-11-01] MEDS: NORVASC PO SCH ×2 (12:38→21:08)
[2018-11-01 15:58] LABS: ALBUMIN BODY FLUID 1.8 g/dL; LDH BODY FLUID 1217 U/L
[2018-11-01 15:59] LABS: LDH BODY FLUID 506 U/L; TOTAL PROT BODY FLUID 3.7 g/dL
[2018-11-01 16:18] LABS: BODY FLUID SOURCE PERITONEAL FLUID; MONOS 13 %; POLYS 87 %; WBC BF 47 /cumm
[2018-11-01 16:21] LABS: BODY FLUID SOURCE PLEURAL FLUID; MONOS 54 %; POLYS 45 %; WBC BF 1293 /cumm
[2018-11-01] MEDS: XARELTO PO SCH (18:46)
[2018-11-01] MEDS: SODIUM CHLORIDE 0.9% INJ SCH (18:46)
[2018-11-01 19:29] LABS: TOTAL PROT BODY FLUID 3.8 g/dL
--- NOTE | 2018-11-01 20:56 | INFECTIOUS DISEASE PROGRESS NO ---
DATE: 11/01/2018 PRESENT ILLNESS: The patient has just returned from subcapsular fluid that was drained in Radiology. The fluid came from the abdomen. MEDICATIONS: This is the second day of treatment with meropenem. PHYSICAL EXAMINATION: Vital Signs: Temperature is 98 degrees, pulse 80, respirations 20, blood pressure 150/60. General: This is a chronically ill appearing, elderly female. She is in no acute distress, however. Head, Eyes, Ears, Nose, Throat: She can hear my spoken words and see near objects. I did not notice any white patches on her tongue. Neck: No pain with moving. Lungs: Diminished breath sounds on the right side. Left side is clear. Abdomen: In the upper quadrant on the right side, the patient has a drain in place, presumably from the subcapsular area where fluid was obtained. Neurologic: The patient is awake. She can move her extremities. There is no tremor. LAB AND X-RAY: CBC shows the white count is down to 18,980, hemoglobin 8.5, platelet count 788,000. Creatinine is 0.8. GFR is greater than 60. ASSESSMENT AND PLAN: Patient has had subcapsular fluid aspiration. I have ordered it to be cultured and also to obtain a fluid cell count. COMORBIDITIES: The patient is elderly. She has antiphospholipid syndrome, pulmonary emboli, chronic anticoagulation, recurrent urinary tract infections, and discontinuation due to prolonged hospitalization. cc: Konrad Luis MD
[2018-11-01] MEDS: GYNE-LOTRIMIN VAGINAL CREAM VAG SCH (21:09)
[2018-11-02] MEDS: MERREM 2 GM in NS 100 ML IV SCH ×3 (02:33→19:08)
[2018-11-02] MEDS: DILAUDID IV PRN ×3 (03:48→16:27)
[2018-11-02] MEDS: HUMULIN R SUBQ SCH ×4 (06:21→23:54)
[2018-11-02] MEDS: SYNTHROID PO SCH (06:22)
[2018-11-02] MEDS: PROTONIX IV SCH ×2 (06:22→19:09)
[2018-11-02] MEDS: TYLENOL PO PRN ×3 (07:56→23:08)
[2018-11-02 08:01] LABS: BASO% 0.5 % (0.0-0.8); EOS% 1.8 % (0.0-10.0); HEMOGLOBIN 8.5 g/dL (12.0-16.0); LYMPH% 10.2 % (20.5-51.1); MCH 28.1 PG (27-31); MCHC 30.4 g/dL (33-37); MCV 92.7 FL (81-99); MONO% 7.1 % (1.7-9.3); MPV 10.4 FL (7.4-10.4); NEUT% 78.6 % (42.2-75.2); PLT 826 X1000 (130-400); RBC 3.02 XMIL (4.2-5.4); RDW 15.2 % (11.5-14.5); WBC 15.86 X1000 (4.8-10.8)
[2018-11-02 08:02] LABS: BASO# 0.08 X1000 (0.0-0.2); EOS# 0.29 X1000 (0.0-0.7); IMM GRAN# 0.28 X1000 (0.0-0.04); IMM GRAN% 1.8 % (0.0-0.5); LYMPH# 1.61 X1000 (1.2-3.4); MONO# 1.12 X1000 (0.11-0.59); NEUT# 12.48 X1000 (1.4-6.5)
[2018-11-02 08:19] LABS: AGAP 12; BUN 20 mg/dL (8-22); CALCIUM 8.3 mg/dL (8.8-10.2); CHLORIDE 103 mmol/L (98-107); COSMO 284; CREATININE 0.8 mg/dL (0.5-0.9); ESTIMATED GFR > 60; GLUCOSE 162 mg/dL (70-104); POTASSIUM 4.3 mmol/L (3.5-5.1); SODIUM 139 mmol/L (136-145); TCO2 24 mmol/L (25-35)
[2018-11-02 08:23] LABS: BANDS 2 % (0-1); EOS 1 % (1-10); LYMPHS 20 % (21-51); MONO 5 % (1-9); SEGS 72 % (42-75)
--- NOTE | 2018-11-02 08:24 | Diag Imaging Result Doc PS360 ---
EXAM: CHEST-PORTABLE INDICATION: dyspnea TECHNIQUE: One view COMPARISON: 11/01/2018 FINDINGS: Right pleural effusion may have marginally increased in size. Right basilar atelectasis is approximately stable. There is milder subsegmental atelectasis at the left lung base that is essentially stable. No new consolidation is identified, otherwise. Cardiac silhouette is stable. IMPRESSION: Questionable marginal increase of the small right pleural fluid collection. Electronically signed by Jagdeep Patton 11/02/2018 8:22 AM
--- NOTE | 2018-11-02 09:19 | PROGRESS NOTE ---
DATE: 11/01/2018 SUBJECTIVE: This patient is lying comfortably in bed. She does have generalized weakness and she is complaining of back pain and thoracic pain on her back as well. She has an ostomy appliance in the right flank and is draining some old blood, but the amount has decreased. Yesterday she had a thoracentesis done and 600 mL of dark mauriico fluid has been removed and sent to the laboratory. Also, she had a CT scan, subcapsular liver fluid removal, but only 30 mL of dark brown fluid has been aspirated, a pigtail has been left in that area. OBJECTIVE: Vital signs: Temperature 98.5 degrees, pulse 90, respiratory rate 24, blood pressure 138/64, oxygen saturation 98 on 2 L of nasal cannula. HEENT: Head normocephalic. No trauma. PERRLA. Neck: Supple. No JVD. No masses. Central trachea. Chest: Decreased breath sounds at the right base with some crackles. Abdomen is soft, generalized tenderness to palpation mostly on the right side. She has an ostomy appliance on the right flank and also she has a pigtail in the anterior part of the abdomen. Extremities: No edema, no clubbing. No cyanosis. Neurological: The patient is alert. She is oriented x3. No focal deficits. LABORATORY DATA: WBC 15.8, hemoglobin 8.5, hematocrit 28, platelet 826,000. glucose 166. Pending BMP. ASSESSMENT AND PLAN: 1. Right perinephric hematoma with lateral blood clots, this has been removed during surgery. CT scan showed also an increase in size of the subcapsular fluid collection of the liver, also increase the right pleural effusion, right basilar infiltrate which is nonspecific and a significant improvement of the right renal collecting syndrome. 2. Subcapsular liver fluid collection status post drainage, only 30 mL of fluid has been removed and sent to the laboratory. So far negative culture. 3. Right pleural effusion status post ultrasound-guided thoracentesis, 600 mL of fluid has been removed from that area. Also, we will monitor. Negative cultures so far. 4. High-grade right ureteropelvic junction stenosis, status post right robotic- assisted laparoscopy, with renal stone removal, and placement of and placement of a of an ureteral stent, initial surgery was on 10/16/2018. 5. Postoperative ileus, improved. 6. 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 Continue with antimicrobial coverage by Infectious Disease Department. 7. Anemia of acute blood loss, status post 3 packed red blood cells. Hemoglobin has been stable, stable. 8. Generalized weakness and physical deconditioning. Physical Therapy on board. The plan is to send this patient to a rehab center. 9. History of antiphospholipid syndrome and pulmonary emboli. The patient has been placed back on Xarelto yesterday per hematology oncology department recommendations. 10. Acute kidney injury. Resolved. 11. Right abdominal area fistula which is draining some old blood, the amount of fluid is coming down nicely, we will continue to monitor. cc: Luis Hidalgo MD MTDD
[2018-11-02] MEDS: NORVASC PO SCH ×2 (10:14→23:51)
[2018-11-02] MEDS: BYSTOLIC PO SCH (10:14)
[2018-11-02] MEDS: LEVEMIR SUBQ SCH (10:15)
--- NOTE | 2018-11-02 14:12 | PROGRESS NOTE ---
DATE: 11/02/2018 Ms. Richard states she is doing well. She denies right flank pain. She does report right back pain where she had a thoracentesis. Vitals: T 97.9 degrees, P 69, BP 135/44. General: No acute distress. Abdomen: Nontender, nondistended. PERTINENT LABORATORY DATA: White cell count 16,000, hematocrit is 28, creatinine is 0.8. ASSESSMENT: A 78-year-old female, with a complicated hospitalization course who has recently undergone right robotic pyeloplasty, pyelolithotomy with ureteral stent placement. Her most recent CT scan on 10/31/2018 showed significant decrease in the amount of perinephric hematoma which basically came out of her BEN drain site. Per daughter and the patient as well as the records, the output amount has significantly decreased. The CT scan also revealed that the right renal pelvis had quite a few clots within it. Finally, it was reported by the radiologist that the ureteral stent may not be in the renal pelvis. 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 The stent is in the renal pelvis, just in the redundant portion of it. She has not had dilation of the ureter and could not have a stent coiled up in the ureter due to tight size of the ureter. I have discussed all those findings with Ms. Richard and her daughter, who is present at bedside. I have discussed with her that from the urologic standpoint, we will again plan to remove her stent in 4 to 6 weeks from the time of her surgery which will be done on an outpatient basis. I will also plan on doing a CT scan prior to having her stent removed to document appropriate healing. The patient and her daughter voiced understanding. With respect to the BEN drain site with ostomy bag over it, it has gotten significantly smaller and I advised the family that she should be able to switch to regular dressings and the opening will eventually close off. PLAN: 1. No further urologic intervention needed at this time. 2. I will plan on seeing her in 3 to 5 weeks in clinic, at which point we will order CT scan and if that is clear, remove her right ureteral stent. 3. Please call if questions. cc: Wai Monge MD
[2018-11-02] MEDS: XARELTO PO SCH (19:08)
[2018-11-02] MEDS: GYNE-LOTRIMIN VAGINAL CREAM VAG SCH (22:25)
[2018-11-03] MEDS: DILAUDID IV PRN (01:05)
[2018-11-03] MEDS: MERREM 2 GM in NS 100 ML IV SCH ×3 (02:40→18:31)
[2018-11-03] MEDS: SYNTHROID PO SCH (06:24)
[2018-11-03] MEDS: PROTONIX IV SCH ×2 (06:24→18:31)
[2018-11-03] MEDS: HUMULIN R SUBQ SCH ×4 (06:28→22:19)
[2018-11-03 07:45] LABS: CHLORIDE 105 mmol/L (98-107); POTASSIUM 4.2 mmol/L (3.5-5.1); SODIUM 141 mmol/L (136-145)
[2018-11-03 07:46] LABS: BUN 23 mg/dL (8-22); CALCIUM 7.8 mg/dL (8.8-10.2)
[2018-11-03 08:01] LABS: BASO# 0.05 X1000 (0.0-0.2); BASO% 0.3 % (0.0-0.8); EOS# 0.38 X1000 (0.0-0.7); EOS% 2.2 % (0.0-10.0); HEMATOCRIT 29.1 % (37.0-47.0); HEMOGLOBIN 8.8 g/dL (12.0-16.0); IMM GRAN# 0.24 X1000 (0.0-0.04); IMM GRAN% 1.4 % (0.0-0.5); LYMPH# 1.91 X1000 (1.2-3.4); LYMPH% 10.9 % (20.5-51.1); MCH 27.8 PG (27-31); MCHC 30.2 g/dL (33-37); MCV 91.8 FL (81-99); MONO# 1.15 X1000 (0.11-0.59); MONO% 6.6 % (1.7-9.3); MPV 10.3 FL (7.4-10.4); NEUT# 13.74 X1000 (1.4-6.5); NEUT% 78.6 % (42.2-75.2); PLT 872 X1000 (130-400); RBC 3.17 XMIL (4.2-5.4); RDW 15.1 % (11.5-14.5); WBC 17.47 X1000 (4.8-10.8)
[2018-11-03 08:11] LABS: CREATININE 0.8 mg/dL (0.5-0.9); ESTIMATED GFR > 60; GLUCOSE 79 mg/dL (70-104); TCO2 24 mmol/L (25-35)
[2018-11-03 08:23] LABS: AGAP 12
[2018-11-03 08:24] LABS: COSMO 284
[2018-11-03 09:07] LABS: BANDS 6 % (0-1); LYMPHS 16 % (21-51); SEGS 78 % (42-75)
--- NOTE | 2018-11-03 09:14 | PROGRESS NOTE ---
DATE: 11/03/2018 SUBJECTIVE: The patient is lying comfortably in bed. She does have generalized weakness, but she has been working with physical therapy and the family as well. No big changes compared with yesterday. Laboratory seems to be stable as well as vital signs. OBJECTIVE: Vital Signs: Temperature 98.2 degrees, pulse 82, respiratory rate 18, blood pressure 155/61, oxygen saturation 99 on 2 L of nasal cannula. HEENT: Head normocephalic. No trauma. PERRLA. Neck: Supple. No JVD. No masses. Central trachea. Chest: Decreased breath sounds at the right base with some crackles. Abdomen: Soft. Generalized tenderness to palpation mostly on the right side. She has an ostomy appliance on the right flank and also she has a pigtail in the anterior part of the abdomen; it is not draining too much. Extremities: No edema, no clubbing, no cyanosis. Neurological: The patient is alert. She is oriented x3. No focal deficits but generalized weakness. LABORATORY: WBC 17.4, hemoglobin 8.8, hematocrit 29.1, platelets 872,000. Sodium 141, potassium 4.2, chloride 105, bicarbonate 24, BUN 23, creatinine 0.8, glucose 79, calcium 7.8. ASSESSMENT AND PLAN: 1. Right perinephric hematoma with intraureteral blood clots; this has been removed during surgery. CT scan showed also an increase in size of a subcapsular fluid collection of the liver and increased right pleural effusion, possible right basilar infiltrate which is nonspecific, and a significant improvement of the right renal collecting system. 2. Subcapsular liver fluid collection status post drainage. Only 30 mL of fluid has been removed and sent to the laboratory and culture, which has been negative. 3. Right pleural effusion status post ultrasound-guided thoracentesis. 600 mL of fluid has been removed from that area. We will also monitor. Negative cultures so far. 4. High-grade right ureteropelvic junction stenosis status post right robotic assisted laparoscopic pyeloplasty, pyelolithotomy with numerous renal stone removals and placement of a ureteral stent. The initial surgery was on 10/16/2018. 5. Postoperative ileus, improved. 6. 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 Continue with antimicrobial coverage by Infectious Disease Department. 7. Anemia of acute blood loss, status post 3 PRBCs. Hemoglobin and hematocrit have been stable. 8. History of antiphospholipid syndrome and pulmonary emboli. This patient has been placed back on her home medication, which is Xarelto. 9. Acute kidney injury resolved. 10. Right abdominal area fistula, which is draining some old blood. There is an ostomy appliance in that area. We will continue just to monitor this. cc: Luis Hidalgo MD
[2018-11-03] MEDS ORDERED: ULTRAM PO PRN (09:25)
[2018-11-03] MEDS: LEVEMIR SUBQ SCH (09:41)
[2018-11-03] MEDS: BYSTOLIC PO SCH (09:41)
[2018-11-03] MEDS: NORVASC PO SCH ×2 (09:41→22:39)
[2018-11-03] MEDS: XARELTO PO SCH (18:31)
[2018-11-03] MEDS: GYNE-LOTRIMIN VAGINAL CREAM VAG SCH (22:57)
[2018-11-04] MEDS: MERREM 2 GM in NS 100 ML IV SCH ×3 (03:53→22:26)
[2018-11-04] MEDS: HUMULIN R SUBQ SCH ×2 (06:11→22:12)
--- NOTE | 2018-11-04 06:34 | GENERAL SURGERY PROGRESS NOTE ---
DATE: 11/04/2018 SUBJECTIVE: Patient seems to be doing okay. OBJECTIVE: Vital Signs: Patient is currently afebrile. Her vital signs are stable. General: No acute distress. HEENT: Normocephalic, atraumatic. Pupils equal, round, and reactive to light. Mucous membranes moist. Oropharynx benign. Neck: Supple. Trachea midline. Cardiovascular: Regular rate and rhythm. Lungs: Grossly clear. Abdomen: Soft. Nontender. Some slight distention. DRAINS: A CT-guided drain with some serosanguineous output. Ostomy appliance with some mild serosanguineous output.Extremities: Moves all extremities. Neurologic: Grossly intact. Skin: No signs of jaundice. Vascular: All extremities perfused. LABORATORY: Reviewed from yesterday, hematocrit remains stable. ASSESSMENT AND PLAN: A 78-year-old female with bowel obstruction. 1. Bowel obstruction at this time seems to be resolved. 2. Intra-abdominal hematoma. At this time, CT scan previously showed an overall decrease in size and her overall drainage output from where her ostomy appliance is from her old drain seems to be decreasing. 3. Parahepatic fluid collection. At this time, she has a drain in place not a significant amount of output. There was not a significant amount removed during the CT-guided drainage. We will have to discuss with her facility where she potentially could be going for rehab if they will accept her with a drain. If not, may need to consider a repeat CT scan tomorrow to see how much the drain has removed from her abdomen. If it has removed everything that it can, we will consider removing the drain. Otherwise, continue to follow. cc: Rodney Torres MD
[2018-11-04] MEDS: PROTONIX IV SCH ×2 (06:38→22:27)
[2018-11-04] MEDS: SYNTHROID PO SCH (06:38)
[2018-11-04 08:20] LABS: AGAP 12; BUN 18 mg/dL (8-22); CALCIUM 7.9 mg/dL (8.8-10.2); CHLORIDE 105 mmol/L (98-107); COSMO 280; CREATININE 0.7 mg/dL (0.5-0.9); ESTIMATED GFR > 60; GLUCOSE 71 mg/dL (70-104); POTASSIUM 3.6 mmol/L (3.5-5.1); SODIUM 140 mmol/L (136-145); TCO2 23 mmol/L (25-35)
[2018-11-04 08:30] LABS: BASO% 0.6 % (0.0-0.8); EOS# 0.43 X1000 (0.0-0.7); EOS% 2.6 % (0.0-10.0); HEMATOCRIT 29.1 % (37.0-47.0); HEMOGLOBIN 8.7 g/dL (12.0-16.0); IMM GRAN# 0.18 X1000 (0.0-0.04); IMM GRAN% 1.1 % (0.0-0.5); LYMPH# 1.69 X1000 (1.2-3.4); LYMPH% 10.4 % (20.5-51.1); MCH 27.6 PG (27-31); MCHC 29.9 g/dL (33-37); MCV 92.4 FL (81-99); MONO# 1.07 X1000 (0.11-0.59); MONO% 6.6 % (1.7-9.3); MPV 10.4 FL (7.4-10.4); NEUT% 78.7 % (42.2-75.2); PLT 869 X1000 (130-400); RBC 3.15 XMIL (4.2-5.4); WBC 16.27 X1000 (4.8-10.8)
[2018-11-04 09:00] LABS: BANDS 2 % (0-1); LYMPHS 8 % (21-51); MONO 6 % (1-9); SEGS 82 % (42-75)
[2018-11-04 09:01] LABS: HYPOCHROM 1+; LARGE PLATELETS 1+
--- NOTE | 2018-11-04 10:29 | PROGRESS NOTE ---
DATE: 11/04/2018 SUBJECTIVE: This patient seems to be doing better. She is sitting at the bedside. Family members at the bedside also. Vital signs are stable. Laboratory with no big changes. OBJECTIVE: Vital Signs: Temperature 98.4 degrees, pulse 84, respiratory rate 20, blood pressure 143/54, oxygen saturation 97% on room air. HEENT: Head normocephalic. No trauma. PERRLA. Neck: Supple. No JVD. No masses. Central trachea. Chest: Decreased breath sounds at the right base with some crackles. Abdomen: Soft. Generalized tenderness to palpation, mostly on the right side and periumbilical area. She has an ostomy appliance on the right flank, and also she has a pigtail in the anterior part of the abdomen. It is not draining too much fluid. Extremities: No edema, no clubbing, no cyanosis. Neurological: The patient is alert. She is oriented x3. No focal neurological deficit, but generalized weakness. LABORATORY DATA: WBC 16.2, hemoglobin 8.7, hematocrit 29.1, platelets 869,000. Sodium 140, potassium 3.6, chloride 105, bicarbonate 23, BUN 18, creatinine 0.7, glucose 71, calcium 7.9. ASSESSMENT AND PLAN: 1. Right perinephric hematoma with intraureteral blood clots. This has been removed during surgery. CT scan showed also an increase in the size of the subcapsular fluid collection of the liver, and also right pleural effusion, possible right basilar infiltrate which is nonspecific, and significant improvement of the right renal collecting system. 2. Subcapsular liver fluid collection, status post drainage. Only 30 mL of fluid has been removed, and actually, the pigtail is not draining too much. Cultures from those area are negative. 3. Right pleural effusion, status post ultrasound-guided thoracentesis. 600 mL of fluid has been removed from that area. Will monitor. Negative cultures so far. 4. High-grade right ureteropelvic junction stenosis, status post right robotic-assisted laparoscopy, pyeloplasty, pyelolithotomy, with numerous renal stone removal and placement of a ureteral stent. 5. Postoperative ileus, improved. 6. 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 Continue with antimicrobial coverage by Infectious Disease Department. 7. Anemia of acute blood loss, status post 3 packed red blood cells. Hemoglobin and hematocrit are stable. 8. History of antiphospholipid syndrome and pulmonary emboli. This patient has been placed back on her home medication, which is Xarelto. 9. Acute kidney injury, resolved. 10. 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 There is an ostomy appliance in that area. Will continue just to monitor. cc: Luis Hidlago MD
[2018-11-04] MEDS: LEVEMIR SUBQ SCH (10:45)
[2018-11-04] MEDS: NORVASC PO SCH ×2 (11:16→22:30)
[2018-11-04] MEDS: BYSTOLIC PO SCH (11:21)
[2018-11-04 15:30] LABS: INR 1.9; PROTIME 22.2 Seconds (11.0-16.0)
[2018-11-04] MEDS ORDERED: NS 250 ML ONE (15:44)
--- NOTE | 2018-11-04 18:55 | INFECTIOUS DISEASE PROGRESS NO ---
DATE: 11/04/2018 PRESENT ILLNESS: The patient is status post urologic procedures done in the operating room x2. She is had fluid collections and leukocytosis. None of the fluid collections grew any organisms. MEDICATIONS: Currently, the patient is on meropenem 2 g IV every 8 hours as well as Gyne-Lotrimin and vaginal cream. PHYSICAL EXAMINATION: Vital Signs: Temperature is 98.2 degrees, pulse 86, respirations 18, blood pressure 140/55. General: This is a chronically ill-appearing obese elderly female. She is in no acute distress. Head, eyes, ears, nose, and throat: She can hear my spoken words and see near objects. She does not have any white patches on her tongue. Neck: No pain with movement. Lungs: Clear to auscultation. Cardiovascular: Heart rate is regular. Abdomen: Soft and not tender. The patient's incision is intact. The ostomy bag is in place for fluid collection. Neurologic: The patient is alert. She can move her extremities. There is no tremor. LAB AND X-RAY: CBC shows a white count of 16,270, hemoglobin 8.7, platelet count 869,000. Creatinine is 0.7. GFR is greater than 60. There is no new radiographic study today. ASSESSMENT AND PLAN: Patient is being treated for persistent leukocytosis and fluid collections in the patient's abdomen following urologic surgical procedures. The patient will receive meropenem 2 g IV every 12 hours for another 10 days. Then, the PICC will be removed. While the patient is having the PICC, I am writing orders to have on Sunday drawn CBC with differential and a creatinine every Sunday for as long as the patient is getting IV antibiotics which will be 10 days. The PICC will be removed after the last dose and I have requested that the patient see me in the office in 2 weeks. COMORBIDITIES: The patient is elderly. She also is obese and she also has an anti-phospholipid syndrome. She is had a pulmonary emboli. Also, she has deconditioning because of her prolonged hospitalization. cc: Konrad Luis MD
[2018-11-04] MEDS: XARELTO PO SCH (22:29)
[2018-11-04] MEDS: GYNE-LOTRIMIN VAGINAL CREAM VAG SCH (23:32)
[2018-11-05] MEDS: HUMULIN R SUBQ SCH ×4 (03:31→18:26)
[2018-11-05] MEDS: MERREM 2 GM in NS 100 ML IV SCH ×3 (04:13→20:37)
[2018-11-05] MEDS: PROTONIX IV SCH ×2 (06:42→19:22)
[2018-11-05] MEDS: BYSTOLIC PO SCH (08:32)
[2018-11-05] MEDS: LEVEMIR SUBQ SCH (08:33)
[2018-11-05] MEDS: SYNTHROID PO SCH (08:33)
[2018-11-05] MEDS: NORVASC PO SCH ×2 (08:33→20:30)
--- NOTE | 2018-11-05 10:41 | DISCHARGE SUMMARY ---
ADMISSION DATE: 10/10/2018 DISCHARGE DATE: 11/04/2018 CONSULTATIONS: 1. Dr. Monge with Urology. 2. Dr. Reynoso with Gastroenterology. 3. Dr. Luis with Infectious Disease. 4. Dr. Marr-with Oncology. 5. Dr. Rodney Torres with General Surgery. DISCHARGE DIAGNOSES: 1. Right paraphrenic hematoma an intraurethral blood clots. This has been removed during surgery. CT scan showed an increase in the size of the subcapsular fluid collection of the liver as well as a right pleural effusion, possible right basilar infiltrate which is nonspecific and significant improvement of the right renal collecting system. 2. Subcapsular liver fluid collection status post drainage. She only had 30 mL of the fluid that has been removed and her pigtail has not been draining much. Cultures from this area have been negative. 3. Right pleural effusion status post ultrasound-guided thoracentesis where they removed 600 mL of fluid. Negative cultures. 4. High-grade right ureteropelvic junction stenosis status post right robotic assisted laparoscopic pyeloplasty, pyelolithotomy and numerous renal stone removals and placement of a urethral stent. 5. Postoperative ileus, improved. 6. 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 She will continue on anti microbial coverage by Dr. Konrad Luis. 7. Anemia of acute blood loss, status post 3 units of packed red blood cells. Hemoglobin and hematocrit remain stable. 8. History of antiphospholipid syndrome and pulmonary emboli. The patient has been placed back on her home medications with Xarelto. 9. Acute kidney injury resolved. 10. Right abdominal area fistula which has been draining some old blood. There is an ostomy appliance in the area. HOSPITAL COURSE: Briefly, Ms. Richard is a 78-year-old female who has had a complicated hospitalization. She has undergone a right robotic pyeloplasty and pyelolithotomy an urethral stent placement. She had a recent CT scan on 10/31/2018 that showed a significant decrease in the amount of her periphrenic hematoma which was basically drained from her BEN drain site. There was some questions of a renal stent being in place. Dr. Monge has looked at this and felt that she has a very redundant renal pelvis as evidenced on all her prior CT scans and that the stent is in the renal pelvis and a plan to remove her stent in 4 to 6 weeks from the time of her surgery will be done on an outpatient basis and they will do a CT scan prior to having her stent removed to document appropriate healing. They also discussed the BEN drain site with ostomy bag over it, has gotten significantly smaller and they believe that she will be able to switch to a regular dressing and the opening will eventually close off. Her hospital course was further complicated by a right pleural effusion where they did a right ultrasound-guided thoracentesis where they were able to drain off 600 mL. Another complication was an ileus status post surgery for she had to have an NG tube. This has since resolved. She is currently tolerating a mechanical soft diabetic diet. She was also followed by Dr. Konrad Luis with Infectious Disease. Given her recurrent enterococcal and fungal urinary tract infections. Social Service have been involved for rehab placement. She has been accepted to [facility]. VITAL SIGNS: At time of discharge, temperature is 98.2 degrees heart rate 86, respirations 18, blood pressure 140/55, O2 is 95% on room air. DISCHARGE DIET: Diabetic mechanical soft, Glucerna with each meal. DISCHARGE MEDICATIONS: 1. Vitamin B12 1000 mcg p.o. every evening. 2. Bystolic 5 mg p.o. daily. 3. Synthroid 125 mcg p.o. daily. 4. Tricor 145 mg p.o. daily. 5. Zocor 40 mg p.o. daily. 6. Mita Lotrimin vaginal cream at bedtime. 7. Glucophage 500 mg p.o. b.i.d. 8. Levemir 20 units subcutaneous daily. 9. Norvasc 2.5 mg p.o. b.i.d. 10. Protonix 40 mg p.o. daily. 11. Ultram 50 mg p.o. q.6 hours p.r.n. 12. Xarelto 20 mg p.o. with supper. 13. Antibotics per Dr. Luis FOLLOWUP: Ms. Richard is being discharged to [facility] where she will continue on her home medications. She will continue to follow up with Dr. Monge's and general surgery as ordered as well as her primary care physician, Dr. Baljinder Patel after discharge from rehab. She can return to the ED or call 911 for any worsening of symptoms this. Dictated by JASON Sinha for Luis Hidalgo MD cc: MD Rodney De La Cruz MD Sergey S. Ananyev, MD David Francis, MD MTDD
--- NOTE | 2018-11-05 11:12 | GENERAL SURGERY PROGRESS NOTE ---
DATE: 11/05/2018 SUBJECTIVE: Patient seems to be doing okay. They do have arrangements made for her to go to [facility]. They had difficulty with the PICC line yesterday, and hopefully they can re-attempt it today. Otherwise, she has been doing okay. OBJECTIVE: Vital Signs: Patient is currently afebrile. Her vital signs stable. General: No acute distress. HEENT: Normocephalic, atraumatic. Pupils equal, round, reactive to light. Mucous membranes moist. Oropharynx benign. Neck: Supple. Trachea midline. Cardiovascular: Regular rate and rhythm. Lungs: Grossly clear. Abdomen: Soft, nontender, and nondistended. Extremities: Moves all extremities. Neurologic: Grossly intact. Skin: No signs of jaundice. Vascular: All extremities perfused. LABORATORY: None this morning as of yet. Reviewed labs from yesterday. ASSESSMENT/PLAN: A 78-year-old female with bowel obstruction. 1. Bowel obstruction. At this time, it seems to be resolved. 2. Intra-abdominal hematoma. At this time, seems to be resolving. 3. Perihepatic fluid collection. At this time, keep drain in place. 4. Phlebosclerosis. At this time, we will try to attempt a PICC line. If they are unsuccessful, may need to consider Joseph catheter or transition her to a p.o. antibiotic form. cc: Rodney Torres MD
--- NOTE | 2018-11-05 12:45 | GENERAL SURGERY PROGRESS NOTE ---
DATE: 11/05/2018 PICC team unable to place a PICC catheter today. We will place a Joseph catheter today then. Discussed with the family the risks, benefits and alternatives of the procedure. Risks including, but not limited to bleeding, infection, risk of anesthesia, risk of pneumothorax. We will do this by ultrasound guidance. We will do a Joseph as opposed to a port given the fact she is prone to clotting off, and this would be easier to remove at the bedside if it came to it. There are aware and they want to proceed. cc: Rodney Torres MD
[2018-11-05] MEDS ORDERED: DIPRIVAN 1% ONE (13:17)
[2018-11-05] MEDS ORDERED: ROBINUL ONE (13:17)
[2018-11-05] MEDS ORDERED: XYLOCAINE-MPF 2% ONE (13:17)
--- NOTE | 2018-11-05 14:27 | PROGRESS NOTE ---
DATE: 11/05/2018 SUBJECTIVE: The patient is doing better, sitting at the bedside. We tried to put a PICC line yesterday, but we could not do it, so she will have a central line, probably a Joseph catheter placed by Dr. Torres today, and she can be discharged in the morning. OBJECTIVE: Vital Signs: Temperature 97.7 degrees, pulse 88, respiratory rate 18, blood pressure 136/48, oxygen saturation 96 on room air. HEENT: Head normocephalic. No trauma. PERRLA. Neck: Supple. No JVD. No masses. Central trachea. Chest: Clear to auscultation. Decreased breath sounds at the bases with some right base crackles. Abdomen: Soft. Generalized tenderness to palpation, but much better compared with previous days. She has an ostomy appliance to the right flank, and also she has a pigtail in the anterior part of the abdomen. It is not draining too much fluid. Extremities: No edema, no clubbing, no cyanosis. Neurological: The patient is alert. She is oriented x3. No focal deficits. LABORATORY DATA: No lab work done today. Glucose 121. ASSESSMENT AND PLAN: 1. Right perinephric hematoma with intraureteral blood clots. This has been removed during surgery. CT scan showed also an increase in the size of the subcapsular fluid collection of the liver, right pleural effusion, possible right basilar infiltrate, which is nonspecific. For dose, she had a thoracentesis done, and also a pigtail placed to try to drain the subcapsular fluid collection. 2. Subcapsular liver fluid collection as above. 3. Right pleural effusion, status post ultrasound-guided thoracentesis, 600 mL of fluid has been removed. Negative cultures so far. 4. High-grade right ureteropelvic junction stenosis, status post right robotic-assisted laparoscopic, pyeloplasty, pyelolithotomy, with numerous renal stone removal, and placement of a ureteral stent. 5. Postoperative ileus, improved. 6. 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 Continue with antimicrobial coverage by Infectious Disease Department. 7. Anemia of acute blood loss, status post 3 packed red blood cells, stable. 8. History of antiphospholipid syndrome and pulmonary emboli. This patient has been placed back on her home medications. At this moment, on hold because she will have a central line placed. 9. Acute kidney injury, resolved. 10. 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 There is an ostomy appliance in that area. Will continue just to monitor. Hopefully, this patient will be discharged tomorrow. She seems to be stable. cc: Luis Hidalgo MD
[2018-11-05] MEDS ORDERED: NS 250 ML ONE (16:44)
[2018-11-05] MEDS ORDERED: SENSORCAINE 0.5%-EPI 1:200,000 ONE (16:44)
[2018-11-05] MEDS ORDERED: KEFZOL ONE (16:44)
[2018-11-05] MEDS ORDERED: D5 1/2 NS 1,000 ML ONE (17:52)
--- NOTE | 2018-11-05 18:25 | Diag Imaging Result Doc PS360 ---
EXAM: CHEST-PORTABLE 11/05/2018 HISTORY: joseph catheter placement TECHNIQUE: AP portable at 1748 COMMENT: There is a Joseph catheter on the right in the internal jugular with its tip in the superior vena cava. There is elevation of the right hemidiaphragm. There is hazy opacity throughout the remaining pneumatized right lung and presumably atelectasis in both lung bases particularly the right lower lobe and middle lobe. This is essentially unchanged since 11/02/2018. IMPRESSION: Bibasilar atelectasis. The possibility of pneumonia in the right upper lobe cannot be excluded. Probable right pleural effusion. Electronically signed by Raúl Coburn 11/05/2018 6:22 PM
[2018-11-05] MEDS: XARELTO PO SCH (19:22)
[2018-11-05] MEDS: D5 1/2 NS 1,000 ML IV SCH (19:23)
[2018-11-05] MEDS: SODIUM CHLORIDE 0.9% INJ SCH (19:23)
--- NOTE | 2018-11-05 22:07 | OPERATIVE NOTE ---
PROCEDURE DATE: 11/05/2018 PREOPERATIVE DIAGNOSES: 1. Phlebosclerosis. 2. 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 POSTOPERATIVE DIAGNOSES: 1. Phlebosclerosis. 2. 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 PROCEDURE: Ultrasound and fluoroscopically guided placement of right internal jugular vein Joseph catheter. SURGEON: Rodney Torres MD. DYED YARN OPERATOR: None. ANESTHESIA: General endotracheal. INTRAOPERATIVE FINDINGS: Ultrasound showed good caliber right internal jugular vein. Fluoroscopy showed the catheter in good position, although it was somewhat curled up in the neck. COMPLICATIONS: None at time of dictation. ESTIMATED BLOOD LOSS: 5 mL. SPECIMENS REMOVED: None. BRIEF HISTORY: A 78-year-old female who has been in the hospital for a while. She needed IV antibiotics for long-term and needed durable IV access. It was felt that she would benefit from a Joseph catheter. The risks, benefits, and alternatives were discussed. All questions answered. DESCRIPTION OF PROCEDURE: After informed consent was obtained, the patient was brought to the operative theater, transferred operative table in the supine position. General endotracheal anesthesia was then performed without complication. A formal time-out was then performed confirming patient, date, and procedure. All in agreement. At that time, attention turned to the right neck. It was prepped and draped in sterile fashion. After the time-out, confirming patient, date and procedure, we turned our attention to the right neck. Ultrasound showed a good caliber right internal jugular vein. Under local anesthetic and ultrasound guidance, I cannulated the right internal jugular vein, passed a wire going to the superior vena cava. We then created a pocket on the right chest wall, tunneled the catheter from the right chest wall, exchanged it over the wire in typical Seldinger technique to place the catheter in the superior vena cava. There was a coil in the neck but it was a gentle curve and the catheter aspirated and flushed easily. We tried to manipulate to try to get the curve out, but again it was able to flush and I could not get it out, so I felt as though as long as it was flushing it was still usable. We secured the Joseph catheter in place by placing a chromic stitch to keep the cuff in the skin and a nylon stitch to the skin. We also placed a chromic stitch in the neck. The patient tolerated the procedure well. Fluoro did not show any obvious pneumothorax, but a chest x-ray is pending. cc: Rodney Torres MD
[2018-11-05] MEDS: GYNE-LOTRIMIN VAGINAL CREAM VAG SCH (22:37)
[2018-11-06] MEDS: HUMULIN R SUBQ SCH ×3 (04:46→12:33)
[2018-11-06] MEDS: D5 1/2 NS 1,000 ML IV SCH ×2 (05:10→06:57)
[2018-11-06] MEDS: MERREM 2 GM in NS 100 ML IV SCH ×2 (05:11→12:33)
[2018-11-06] MEDS: PROTONIX IV SCH (05:12)
[2018-11-06] MEDS: SYNTHROID PO SCH ×2 (05:12→06:56)
[2018-11-06 07:21] LABS: BASO% 0.6 % (0.0-0.8); EOS# 0.88 X1000 (0.0-0.7); EOS% 5.4 % (0.0-10.0); HEMATOCRIT 27.5 % (37.0-47.0); HEMOGLOBIN 8.3 g/dL (12.0-16.0); IMM GRAN# 0.14 X1000 (0.0-0.04); IMM GRAN% 0.9 % (0.0-0.5); LYMPH# 1.51 X1000 (1.2-3.4); LYMPH% 9.3 % (20.5-51.1); MCH 27.5 PG (27-31); MCHC 30.2 g/dL (33-37); MCV 91.1 FL (81-99); MONO# 1.04 X1000 (0.11-0.59); MONO% 6.4 % (1.7-9.3); MPV 10.2 FL (7.4-10.4); NEUT# 12.59 X1000 (1.4-6.5); NEUT% 77.4 % (42.2-75.2); PLT 912 X1000 (130-400); RBC 3.02 XMIL (4.2-5.4); RDW 14.8 % (11.5-14.5); WBC 16.26 X1000 (4.8-10.8)
[2018-11-06 07:50] LABS: AGAP 12; ALB/GLOB RATIO 0.6; ALBUMIN 2.5 g/dL (3.5-5.0); ALKALINE PHOSPHATASE 133 U/L (32-104); BUN 12 mg/dL (8-22); CALCIUM 8.3 mg/dL (8.8-10.2); CHLORIDE 106 mmol/L (98-107); COSMO 282; CREATININE 0.7 mg/dL (0.5-0.9); ESTIMATED GFR > 60; GLUCOSE 90 mg/dL (70-104); GOT 71 U/L (10-30); GPT 52 U/L (10-36); POTASSIUM 4.3 mmol/L (3.5-5.1); SODIUM 142 mmol/L (136-145); TCO2 24 mmol/L (25-35); TOTAL BILIRUBIN 0.28 mg/dL (0.20-1.00); TOTAL PROTEIN 6.4 g/dL (6.3-8.3)
[2018-11-06 07:53] LABS: LYMPHS 6 % (21-51); MONO 6 % (1-9); SEGS 88 % (42-75)
[2018-11-06 07:54] LABS: HYPOCHROM 1+
[2018-11-06] MEDS: NORVASC PO SCH (08:53)
[2018-11-06] MEDS: BYSTOLIC PO SCH (08:53)
[2018-11-06] MEDS: LEVEMIR SUBQ SCH (08:53)
--- NOTE | 2018-11-06 08:57 | DISCHARGE SUMMARY ---
ADMISSION DATE: 10/10/2018 DISCHARGE DATE: DISCHARGE DIAGNOSES: 1. Right perinephric hematoma and ureteral blood clots. This has been removed during surgery. CT scan showed an increase in size of the subcapsular fluid collection of the liver as well as right pleural effusion, possible right basilar infiltrate which is nonspecific and significantly improved of the right renal collecting system. 2. Subcapsular liver fluid collection, status post drainage. She only had 30 mL of fluid that has been removed and her pigtail has not been draining too much. Culture has been negative. 3. Right pleural effusion, status post ultrasound-guided thoracentesis where 600 mL of fluid has been removed. Negative cultures. 4. High-grade right ureteropelvic junction stenosis, status post right robotic-assisted laparoscopic pyeloplasty, pyelolithotomy, and numerous renal stone removals and placement of a ureteral stent. 5. Postoperative ileus, improved. 6. Recurrent enterococcal urinary tract infection and brigid infection. Continue with antimicrobial coverage by infectious disease department. 7. Anemia of acute blood loss, status post 3 units of packed red blood cells. Hemoglobin and hematocrit stable. 8. History of antiphospholipid syndrome. We have placed this patient back on Xarelto. 9. Acute kidney injury, resolved. 10. Right abdominal area fistula which has been draining some all blood but not too much. There is an ostomy appliance in that area. HOSPITAL COURSE: A 78-year-old female who has had a complicated hospitalization. She has undergone a right robotic pyeloplasty and pyelolithotomy and ureteral stent placement. She had a recent CT scan on 10/31/2018 that showed a significant decrease in the amount of perinephric hematoma which was basically drained from her BEN drain site. There was a stenosis and a renal stent has been placed. Dr. Monge has looked at this and felt that she has a very redundant renal pelvis and as evidenced on all her prior CT scans. The stent is in the renal pelvis and a plan to remove the stent in 4 to 6 weeks from the time of her surgery will be done as an outpatient. Probably, they will do a CT scan prior to having her stent removed to document appropriate healing. They also discussed the BEN drain site with ostomy bag over it has gotten significantly smaller and they believe that she will be able to switch to a regular dressing and the opening will eventually close off. Her hospital course was further complicated by a right pleural effusion where they did a right thoracentesis under ultrasound guidance. There has been 600 mL of fluid removed and no complication from it, negative cultures. She had also a postoperative ileus. Surgery on board and basically has been resolved. Also, she had a subcapsular hematoma of the liver. A pigtail has been placed and surgery department will follow this as an outpatient. It is not draining too much. Negative culture from that area as well. They removed 30 mL of fluid. Infectious disease department also on board and taking care of her current medications. They have recommended to continue with IV antibiotics. We tried to put a PICC line a couple days ago but it was really difficult for this patient so surgery department decided to put a Joseph catheter for this patient, without any complications yesterday in the afternoon. Today, she will be going to a rehab center. She has been accepted to [facility]. VITAL SIGNS: Temperature 98.5 degrees, pulse 87, respiratory rate 19, blood pressure 152/59, oxygen saturation 94% on room air. LABORATORY: WBC 16.2, hemoglobin 8.3, hematocrit 27.5, platelets 212,000. Sodium 142, potassium 4.3, chloride 106, bicarbonate 24, BUN 12, creatinine 0.7, glucose 90, calcium 8.3. AST 71, ALT 52, alkaline phosphatase 133. Given the mild elevation of the LFTs, I have decided to stop her statins. This is probably due to her subcapsular fluid collection of the liver. I will also stop her fenofibrate for now due to the possibility of abnormal LFTs and hepatitis from this medication, which she has not been taking it during this hospitalization. DISCHARGE MEDICATIONS: 1. Vitamin B12 1000 mcg p.o. every evening. 2. Bystolic 5 mg p.o. daily. 3. Synthroid 125 mcg p.o. daily. 4. Glucophage 500 mg p.o. b.i.d. 5. Levemir 20 units subcutaneous daily. 6. Norvasc 2.5 mg p.o. b.i.d. 7. Protonix 40 mg p.o. daily. 8. Ultram 50 mg p.o. q.6 hours as needed. 9. Xarelto 20 mg p.o. with supper. 10. Antibiotics per Dr. Luis, meropenem 2 g every 12 hours for 8 more days. FOLLOWUP: This patient will be discharged to [facility] where she will continue with most of her home medications. She will need to follow up with Dr. Monge, general surgery, Dr. Luis, her primary care doctor, Dr. Baljinder Patel, and hematology/oncology department, Dr. Marr as an outpatient. Time discharging this patient was 40 minutes. cc: Luis Hidalgo MD
[2018-11-06 08:58] VITALS: BP 138/48
--- NOTE | 2018-11-06 09:45 | GENERAL SURGERY PROGRESS NOTE ---
DATE: 11/06/2018 PICC line catheter was placed successfully yesterday. Chest x-ray looks okay. From a surgical point of view, she can go to her rehab facility as long as everything else has been arranged. I can see her in the office in 1 to 2 weeks. cc: Rodney Torres MD
== END 2018-11-06 14:35 | DRG 660 ==
LOC: P.ED 08:08 → SUATTDRO 14:02 → 3N 14:02 → EDIPHOLD 14:03 → 3N 21:19
PROVIDERS: ATTEND Internal Medicine